=== PATIENT | male | born 1960 | race Caucasian/White ===

== ENCOUNTER → 2022-12-15 09:51 | Outpatient (CLI) | payer BC, SELFPAY ==
--- NOTE | ~2022-12-15 | XR_ITS ---
XR chest 2V DATE: 12/15/2022 10:41 INDICATION: Cough TECHNIQUE: Upright PA and lateral views COMPARISON: None FINDINGS: Heart size is within normal limits. Left anterior chest monitor device. There is aortic calcification and mild unfolding. No hilar or mediastinal enlargement is evident. Mild infiltrate or atelectasis, left lower lobe. The lungs are otherwise clear. Levoscoliosis and diffuse idiopathic skeletal hyperostosis of the thoracic spine. IMPRESSION: Mild infiltrate or atelectasis, left lower lobe Reviewed, dictated and finalized at location A.
== END ==
PROVIDERS: PCP Nurse Practitioner Family; Visit Provider Nurse Practitioner Family
DX: R05.9 Cough, unspecified (principal); R91.8 Other nonspecific abnormal finding of lung field
CPT/HCPCS: 71046

== ENCOUNTER → 2023-04-12 14:36 | Outpatient (CLI) | payer MEDICARE, SELFPAY ==
--- NOTE | ~2023-04-12 | XR_ITS ---
XR chest 2V DATE: 04/12/2023 15:01 INDICATION: Pneumonia TECHNIQUE: 2 views COMPARISON: 12/15/2022 2 view chest FINDINGS: Heart size appears within normal range. There is a left anterior chest wall electronic card iac monitor device. There is mild aortic unfolding. No hilar or mediastinal enlargement. Mild infiltrate and/or atelectasis at the lung bases, left greater than right. The lungs otherwise ap pear clear. No pleural effusion or pulmonary vascular congestion or pneumothorax is detected. Diffuse idiopathic skeletal hyperostosis of the thoracic spine. Mild thoracic levoscoliosis. IMPRESSION: Mild infiltrate and/or atelectasis at the lung bases, left greater than right Reviewed, dictated and finalized at location B. LUTION AGENT
== END ==
PROVIDERS: PCP Family Medicine; Visit Provider Family Medicine
DX: J18.9 Pneumonia, unspecified organism (principal); R91.8 Other nonspecific abnormal finding of lung field
CPT/HCPCS: 71046

== ENCOUNTER 2024-04-01 19:09 | Emergency (ER) | payer MEDICARE, SELFPAY ==
[2024-04-01 19:18] VITALS: BP 148/62; PULSE 93; RESP 15; TEMP 36.5; O2SAT 95
--- NOTE | 2024-04-01 19:37 | PC.NURSE ---
Pt is A&Ox4 and refusing blood draw and other laboratory testing at this time. EDP aware.
[2024-04-01] MEDS: ACETAMINOPHEN 500 MG TABLET 1000 MG PO (20:00)
--- NOTE | 2024-04-01 20:00 | ED_ITS ---
HPI - General Adult General Chief complaint: Psychiatric Symptoms Stated complaint: psych issues Time Seen by Provider: 04/01/24 19:24 History of Present Illness HPI narrative: Patient is a 64-year-old male who presents to the emergency department this evening from his assisted living facility for psychiatric evaluation. Allegedly, patient told staff there that he wanted to harm herself. No active. Upon arrival to the emergency department, patient states that he never said that. He is adamantly denying any suicidal homicidal ideations. Denies any previous history of any suicide attempts. Patient has a history of previous stroke and secondary to this has left-sided deficits. Patient does have a guardian, his daughter who was contacted upon patient's arrival to the emergency department as patient is refusing care. Daughter states the patient will say random things at times that he does not mean. She is not concerned at all about him being suicidal or homicidal. She states that the assisted living facility gave her an ultimatum, either she comes and states with him for 24 hours or they sent him to the emergency department. Daughter states that she could not come and sit with the patient as she has kids that she needs to take care of. Related Data Allergies Allergy/AdvReac Type Severity Reaction Status Date / Time NA Allergy Uncoded 06/23/08 13:01 Review of Systems Review of Systems: All systems are reviewed and are negative unless stated otherwise in the HPI. [facility] Social History Social History Substance use type: does not use Exam Narrative: General: Alert, awake, afebrile, in no acute distress. HEENT: PERRL, no rhinorrhea, no post nasal drip, oropharynx clear. Neck: Trachea midline, no JVD, no lymphadenopathy. Cardiovascular: Regular rate and rhythm, no murmurs, rubs or gallops, no peripheral edema. Respiratory: Clear to auscultation bilaterally, no tachypnea, no wheezing, no rhonchi, no rubs, no respiratory distress. Abdomen: Soft, nontender, nondistended, no rebound, no guarding, no peritoneal signs. Musculoskeletal: No joint swelling or deformity, normal muscle tone. Skin: No rashes or petechia, no signs of infection. Psychiatric: Alert and oriented, normal behavior and judgment for situation. Neurological: Alert and oriented to person, place, and time. Follows all commands. Left-sided residual deficits secondary to history of stroke speech is clear and fluent. Course Vital Signs Vital signs: Vital Signs Temperature 97.7 F 04/01/24 19:18 Pulse Rate 93 04/01/24 19:18 Respiratory Rate 15 04/01/24 19:18 Blood Pressure 148/62 H 04/01/24 19:18 Pulse Oximetry 95 04/01/24 19:18 Oxygen Delivery Room Air 04/01/24 19:18 Temperature 97.7 F 04/01/24 19:18 Pulse Rate 93 04/01/24 19:18 Respiratory Rate 15 04/01/24 19:18 Blood Pressure 148/62 H 04/01/24 19:18 Pulse Oximetry 95 04/01/24 19:18 Oxygen Delivery Room Air 04/01/24 19:18 Medical Decision Making MDM Narrative Medical decision making narrative: The patient was evaluated by myself in the emergency department. History is obtained from patient who is an independent historian and physical exam was performed. External medical records were reviewed at this time. Patient was administered a g of Tylenol for chronic pain per his request. Patient was refusing blood work. We did contact guardian and inform her of this and she was not concerned about patient being suicidal or homicidal. Differential diagnosis considerations include acute stress reaction, anxiety, depression. Comorbidities impacting this visit include none. I have evaluated and discussed social determinants of health with the patient that could potentially impact subsequent diagnosis and treatment plans. On repeat assessment of the patient, reevaluation revealed that the patient is doing well and is in no acute distress. Patient symptoms have remained stable since he arrived to our emergency department. Repeat vital signs were all reviewed and noted to be stable. Differential diagnosis and treatment plan were discussed with the patient at bedside. Patient agrees with discussion and after shared medical decision making agrees with discharge. All questions were answered to the patient's satisfaction. Patient will follow up with his PCP in 3-5 days. Patient was provided with strict return precautions and instructed to return to the emergency department if any new or worsening symptoms develop. The patient was discharged in stable condition. Vital Signs Vital Signs: Vital Signs Temperature 97.7 F 04/01/24 19:18 Pulse Rate 93 04/01/24 19:18 Respiratory Rate 15 04/01/24 19:18 Blood Pressure 148/62 H 04/01/24 19:18 Pulse Oximetry 95 04/01/24 19:18 Oxygen Delivery Room Air 04/01/24 19:18 Temperature 97.7 F 04/01/24 19:18 Pulse Rate 93 04/01/24 19:18 Respiratory Rate 15 04/01/24 19:18 Blood Pressure 148/62 H 04/01/24 19:18 Pulse Oximetry 95 04/01/24 19:18 Oxygen Delivery Room Air 04/01/24 19:18 Discharge Plan Discharge Clinical Impression: Encounter for medical assessment Patient Disposition: SNF Condition: Improved Instructions: Normal Exam (ED) Additional Instructions: Please follow-up with your family doctor within the next 3-5 days. Return to the ED if any new or worsening symptoms develop. Patient Language: Portuguese Follow-up/Referrals: Devante,Amber Sylvester MD [Primary Care Provider] - 3 Days Time of Disposition: 20:01
[2024-04-01 21:04] VITALS: PULSE 85; RESP 15; O2SAT 96
--- OUTSIDE RECORDS SUMMARY | 2024-04-03 03:38 | XMS_ITS | Encounter Summary ---
Author Organization [facility] Address [address] [place] [address] Care Team Providers Care Commercial Review Appraiser Name Role Phone Gutierrez Richardson MD Primary Care Provider Reason for Visit * Auth/Cert Specialty Diagnoses / Procedures Referred By Behzad mcdonald Referred To Contact Diagnoses CEREBRAL INFARCTION, UNSPECIFIED Referral ID Status Reason Start Date Expiration Date Visits Re quested Visits Authorized [id number] 1 1 Encounter Details Date Type Department Care Team (Latest Contact Info) Description 12/22/2021 1:03 PM CDT Hospital Encounter [address] [address] Rea Donnelly MD [address] [place] [address] [place], [place] [id number] Select Direct Social History Tobacco Use Types [...] and heating? Not hard at all 04/30/2022 [facility] - Occupational Stress [...] place to sleep or slept in a correction (including now)? No 04/30/2022 Sex and Gender Information Value Date Recorded Sex Assigned at Male 09/10/2022 10:38 AM CDT Gender Identity Male 09/10/2022 10:38 AM CDT Sexual Orientation Straight 09/10/2022 10 :38 AM CDT documented as of this encounter Functional Status Functional Status Response Date of Assess ment Is person deaf or have serious hearing difficult y? No 12/09/2021 Is person blind or have serious difficulty seein g? No 12/09/2021 Does person have serious dif ficulty walking/climbing stairs? No 12/09/2021 Does person have difficulty dressing/bathing? No 12/09/2021 Does person have difficulty doing errands alone? No 12/09/2021 Cognitive Status Response Date of Assessm ent Does person have difficulty concentrating/remembering/making decisions? No 12/09/2021 documented as of this encounter Plan of Treatment Not on file documented as of this encounter Visit Diagnoses Not on filedocumented in this encounter Care Teams Commercial Review Appraiser Relationship Specialty Start Date End Date Gutierrez Richardson MD [address] [facility] [address] [place] [address] PCP - General 12/12/21 01/02/22 documented as of this encounter
--- OUTSIDE RECORDS SUMMARY | 2024-04-03 03:38 | XMS_ITS | Clinical Summary ---
Author Organization [facility] Address [address] [place] [address] Care Team Providers Care Pipe Line Walker Name Role Phone Gutierrez Richardson MD Unavailable [phone] Gutierrez Richardson MD Primary Care Provider [phone] Source Comments [facility],non-owned Affiliates and Associated Physician Practices is amultiple site organization consisting of ambulatory clinics and hospital sitesin [place], [place], [place] and [place]. This disclosure is being madepursuant to the Care Everywhere program and may not contain all information available regarding this patient. Last updated 17.[facility] [employer] Allergies No known active allergies Medications * Be aware that medications may not be up to date on this document. Alwaysverify current medications with the patient. Medication Sig Dispensed Refills Start Date End Date Status albuterol HFA (PROVENTIL;VENTOL IN;PROAIR) 108 (90 BASE) MCG/ACT inhaler Inhale 2 puffs by mouth every 6 hours as needed for Cough 1 Inhaler 03/20/2017 Active atorvastatin (Lipitor) 80 MG tablet Take 1 (one) tablet by mouth at bedtime 45 tablet 1 12/21/2021 Active amLODIPine (Norvasc) 5 MG tablet Take 1 (one) tablet by mouth once daily 30 tablet 1 12/22/2021 Active Additional Information Patient not taking.Reported on 04/30/2022 gabapentin (Neurontin) 400 MG capsule Take 1 (one) capsule by mouth at bedtime Active lidocaine (Lidoderm) 5 % patch lidocaine 5 % topical patch APPLY 1 PATCH BY TOPICAL ROUTE ONCE DAILY (MAY WEAR UP TO 12HOURS.) Active lisinopril (Prinivil; Zestril) 20 MG tablet Take 1 (one) tablet by mouth once daily Active melatonin 3 MG tablet Take 5 mg by mouth at bedtime 01/13/2022 Active modafinil (Provigil) 200 MG tablet Take 1 (one) tablet by mouth every morning Active propranolol (Inderal) 10 MG tablet propranolol 10 mg tablet Take 1 tablet 3 times a day by oral route for 90 days. 01/13/2022 Active benzonatate (Tessalon) 100 MG capsule Take 1 (one) capsule by mouth 3 times daily as needed for Cough Active calcium carbonate (Tums) 500 MG chew tablet Take 1 (one) tablet by mouth daily with food Active traZODone (Desyrel) 50 MG tablet Take 1 (one) tablet by mouth at bedtime Active fluticasone propionate (Flonase) 50 MCG/ACT nasal spray [place] 2 (two) sprays into each nostril as needed Active aspirin (Aspirin) 81 MG chew tablet Take 1 (one) tablet by mouth once daily 45 tablet 1 05/05/2022 Active hydrOXYzine HCl (Atarax) 25 MG tablet Take 1 (one) tablet by mouth every 6 hours as needed for Itching 05/03/2022 Active heparin 5000 UNIT/ML injection Inject 1 mL subcutaneously every 8 hours 05/03/2022 Active levETIRAcetam (Keppra) 500 MG tablet Take 1 (one) tablet by mouth every 12 hours 05/03/2022 Active DULoxetine (Cymbalta) 30 MG capsule Take 3 (three) capsules by mouth once daily 05/04/2022 Active famotidine (Pepcid) 20 MG tablet Take 1 (one) tablet by mouth 2 times daily 05/03/2022 Active polyethylene glycol 3350 (Miralax) 17 g packet Take 17 (seventeen) g by mouth once daily as needed 05/03/2022 Active Active Problems Problem Noted Date Diagnosed Date History of cranioplasty 04/30/2022 Cerebrovascular accident 12/23/2021 Dysphagia 12/23/2021 Hypertension 12/23/2021 Debility 12/22/2021 Cerebral edema 12/11/2021 Brain herniation 12/11/2021 Acute respiratory failure 12/11/2021 Nihss score 11 12/11/2021 Leukocytosis 12/11/2021 Cerebrovascular accident (CVA) 12/09/2021 Primary hypertension 12/09/2021 Alcohol use 12/09/2021 Tobacco use disorder 12/09/2021 Other hyperlipidemia 12/09/2021 Other dysphagia 12/09/2021 Acute ischemic right MCA stroke 12/09/2021 Social History Tobacco Use Types Packs/Day Years Used Date Smoking Tobacco: Former Cigarettes Q uit: 12/2020 Smokeless Tobacco: Never Tobacco Cessation:Counseling Given: Not Answered Alcohol Use Standard Drinks/Week Comments Not Currently 0 (1 standard drink = 0.6 oz [...] and heating? Not hard at all 04/30/2022 [facility] - Occupational Stress [...] place to sleep or slept in a residential (including now)? No 04/30/2022 Sex and Gender Information Value Date Recorded Sex Assigned at Male 09/10/2022 10:38 AM CDT Gender Identity Male 09/10/2022 10:38 AM CDT Sexual Orientation Straight 09/10/2022 10 :38 AM CDT Last Filed Vital Signs Vital Sign Reading Time Taken Comments Blood Pressure 118/70 05/03/2022 3:05 PM [facility] Pulse 92 05/03/2022 3:05 PM [facility] Temperature 36.9 ??C (98.4 ??F) 05/03/2022 3:05 PM CS T Respiratory Rate 16 05/03/2022 3:05 PM [facility] Oxygen Saturation 89% 05/03/2022 3:05 PM [facility] Inhaled Oxygen Concentration 30% 12/21/2021 8 :25 AM CDT Weight 91.9 kg (202 lb 8 oz) 04/30/2022 6:14 AM [facility] Height 175.3 cm (5' 9 ) 04/30/2022 6:14 AM [facility] Body Mass Index 29.9 04/30/2022 6:14 AM [facility] Plan of Treatment Health Maintenance Due Date Last Done Comments COLOGUARD (AGES 45-75) - COLON CA SCREENING 1960 COLON MONITORING 1958 COLONOSCOPY - COLON CA SCREENING 1958 CT COLONOGRAPHY - COLON CA SCREENING 1960 Colorectal Cancer Screening 1958 FIT - COLON CA SCREENING 1958 FLEX SIG - COLON CA SCREENING 1958 HIV SCREENING 1973 HEPATITIS C SCREENING 03/26/1976 DTAP/TDAP/TD VACCINES (1 - Tdap) 1977 PNEUMOCOCCAL VACCINE 50+ (1 of 1 - PCV) 2008 ZOSTER VACCINE (1 of 2) 2008 Respiratory Syncytial Virus (RSV) Vaccine Pt: or over 60 yrs (1 - Risk 60-74 years 1-dose series) 2018 AAA SCREENING 2023 COVID-19 VACCINE (2023- season) 2023 INFLUENZA VACCINE (#1) 2023 DEPRESSION SCREENING 03/11/2024 SCREENING FOR DIABETES 05/03/2025 3, 05/02/2022, 05/01/2022, Additional history exists HEPATITIS B VACCINE Aged Out No longe r eligible based on patient's age to complete this topic HIB VACCINE Aged Out No longer eligi ble based on patient's age to complete this topic HPV VACCINE Aged Out No longer eligi ble based on patient's age to complete this topic MENINGOCOCCAL (Group B) VACCINE Aged Out No longer eligible based on patient's age to complete this topic MENINGOCOCCAL VACCINE Aged Out No andrei jennifer eligible based on patient's age to complete this topic Medical Devices Implanted Type Area Commutator Inspector Device Identifier Shelf Expiration Date Model / Serial / Lot Precision Multiparameter Catheter Implanted:Qty: 1 on 12/10/2021 by Ken Fu MD at [facility] Catheters Left: Cranial 06/08/2024 [id number] / [id number] / Description:[employer] ; CRANIAL BOLT cost per Cadence Graft Tissue Drgn + Bvn Clgn Mtrx 5x4in Implanted:Qty: 1 on 12/10/2021 by Ken Fu MD at [facility] Other (Type not listed) Right: Cranial [employer] 08/08/2024 [id number] / / [id number] Sys Crd Mntr Rvl Linq Ii - [id number] Implanted:Qty: 1 on 12/14/2021 by Shae Choi MD at [facility] [employer] [place] 09/25/2022 [id number] / [id number] / [id number] Screw 1.5mm 4mm Slf Drl Ax Stab Unv Implanted:Qty: 15 on 04/30/2022 by Ken Fu MD at [facility] Right: Cranial [employer] Craniomaxillofacial [id number] / / Plate 2x2 Hl Lopro Crnmxf .4mm Sm Bx Unv Implanted:Qty: 3 on 04/30/2022 by Ken Fu MD at [facility] Right: Cranial Mimi Craniomaxillofacial [id number] / / Plate 6 Hl Lopro Bar Crnmxf .4mm 2y Unv Implanted:Qty: 1 on 04/30/2022 by Ken Fu MD at [facility] Right: Cranial Mimi Craniomaxillofacial [id number] / / Explanted Type Area Commutator Inspector Device Identifier Shelf Expiration Date Model / Serial / Lot Set Xtrn Drn 35cm 1.9mm 3-15cm Cath Inr Explanted:Qty: 1 on 04/30/2022 at [facility] [employer] [id number] / / Procedures Procedure Name Priority Date/Time Associated Diagnosis Comments BASIC METABOLIC PANEL (CALCIUM TOTAL) Routine 05/03/2022 3:33 AM [facility] History of cranioplasty from Last 3 Months or Most Recently Relevant to Health Maintenance Results * (ABNORMAL) BASIC METABOLIC PANEL (CALCIUM TOTAL) (05/03/2022 3:33 AM [facility]) BUN 14 7 - 26 mg/dL 05/03/2022 4:42 AM [facility] Creatinine 0.59(L) 0.71 - 1.16 mg/dL 05/03/2022 4:42 AM [facility] Sodium 140 136 - 145 mmol/L 05/03/2022 4:42 AM [facility] Potassium 4.3 3.5 - 4.5 mmol/L 05/03/2022 4:42 AM [facility] Comment:Confirmed by repeat analysis. Chloride 105 98 - 107 mmol/L 05/03/2022 4:42 AM [facility] Comment:Confirmed by repeat analysis. CO2 24 22 - 29 mmol/L 05/03/2022 4:42 AM [facility] Glucose 143(H) 70 - 115 mg/dL 05/03/2022 4:42 AM [facility] Calcium 9.0 8.4 - 10.2 mg/dL 05/03/2022 4:42 AM [facility] Anion Gap 15 8 - 18 05/03/2022 4:42 AM [facility] BUN/Creatinine Ratio 24(H) 7 - 23 05/03/2022 4:42 AM [facility] Osmolality Calculated 293 270 - 300 mOsm/kg 05/03/2022 4:42 AM [facility] eGFR by CKD-EPI >90 >=90 mL/min/1.7 3 m2 05/03/2022 4:42 AM [facility] Blood BLOOD SPECIMEN / Unknown Venipuncture / Unknown 05/03/2022 3:33 AM [facility] 05/03/2022 3:45 AM [facility] Ken Fu MD LAB - CHEMISTRY ZO [place] [facility] Organization Address City/State/ZIP Co de Phone Number [facility] [address] [place] [address], [facility] [phone] from Last 3 Months or Most Recently Relevant to Health Maintenance Insurance Payer Benefit Plan / Group Subscriber ID Effective Dates Phone Address Type ANTHEM BLUE CROSS TRADITIONAL [id number] 07/05/2020-Presen t [phone] [address] [place] [address] PPO ANTHEM BLUE CROSS TRADITIONAL 07/05/2020-Presen t [phone] [address] [place] [address] PPO ANTHEM BLUE CROSS TRADITIONAL 07/05/2020-Presen t [phone] [address] [place] [address] PPO ANTHEM BLUE CROSS TRADITIONAL 07/05/2020-Presen t [phone] [address] [place] [address] PPO ANTHEM BLUE CROSS TRADITIONAL [id number] 07/05/2020-Presen t [phone] [address] [place] [address] PPO ANTHEM BLUE CROSS TRADITIONAL 07/05/2020-Presen t [phone] [address] [place] [address] PPO ANTHEM BLUE CROSS TRADITIONAL 07/05/2020-Presen t [phone] [address] [place] [address] PPO ANTHEM BLUE CROSS TRADITIONAL 07/05/2020-Presen t [phone] [address] [place] [address] PPO ANTHEM BLUE CROSS TRADITIONAL 07/05/2020-Presen t [phone] [address] [place] [address] PPO ANTHEM BLUE CROSS TRADITIONAL 07/05/2020-Presen t [phone] [address] [place] [address] PPO ANTHEM BLUE CROSS TRADITIONAL 07/05/2020-Presen t [phone] [address] [place] [address] PPO ANTHEM BLUE CROSS TRADITIONAL 07/05/2020-Presen t [phone] [address] [place] [address] PPO ANTHEM BLUE CROSS TRADITIONAL 07/05/2020-Presen t [phone] [address] [place] [address] PPO ANTHEM BLUE CROSS TRADITIONAL 07/05/2020-Presen t [phone] [address] [place] [address] PPO ANTHEM BLUE CROSS TRADITIONAL 07/05/2020-Presen t [phone] [address] [place] [address] PPO ANTHEM BLUE CROSS TRADITIONAL 07/05/2020-Presen t [phone] [address] [place] [address] PPO ANTHEM BLUE CROSS TRADITIONAL 07/05/2020-Presen t [phone] [address] [place] [address] PPO ANTHEM BLUE CROSS TRADITIONAL 07/05/2020-Presen t [phone] [address] [place] [address] PPO ANTHEM BLUE CROSS TRADITIONAL 07/05/2020-Presen t [phone] [address] [place] [address] PPO ANTHEM BLUE CROSS TRADITIONAL 07/05/2020-Presen t [phone] [address] [place] [address] PPO ANTHEM BLUE CROSS TRADITIONAL 07/05/2020-Presen t [phone] [address] [place] [address] PPO ANTHEM BLUE CROSS TRADITIONAL 07/05/2020-Presen t [phone] [address] [place] [address] PPO ANTHEM BLUE CROSS TRADITIONAL 07/05/2020-Presen t [phone] [address] [place] [address] PPO ANTHEM BLUE CROSS TRADITIONAL 07/05/2020-Presen t [phone] [address] [place] [address] PPO ANTHEM BLUE CROSS TRADITIONAL 07/05/2020-Presen t [phone] [address] [place] [address] PPO ANTHEM BLUE CROSS TRADITIONAL 07/05/2020-Presen t [phone] [address] [place] [address] PPO ANTHEM BLUE CROSS TRADITIONAL 07/05/2020-Presen t [phone] [address] [place] [address] PPO ANTHEM BLUE CROSS TRADITIONAL 07/05/2020-Presen t [phone] [address] [place] [address] PPO ANTHEM BLUE CROSS TRADITIONAL 07/05/2020-Presen t [phone] [address] [place] [address] PPO ANTHEM BLUE CROSS TRADITIONAL 07/05/2020-Presen t [phone] [address] [place] [address] PPO ANTHEM BLUE CROSS TRADITIONAL 07/05/2020-Presen t [phone] [address] [place] [address] PPO ANTHEM BLUE CROSS TRADITIONAL 07/05/2020-Presen t [phone] [address] [place] [address] PPO ANTHEM BLUE CROSS TRADITIONAL [id number] 07/05/2020-Presen t [phone] [address] [place] [address] PPO ANTHEM BLUE CROSS TRADITIONAL [id number] 07/05/2020-Presen t [phone] [address] [place] [address] PPO ANTHEM BLUE CROSS TRADITIONAL [id number] 07/05/2020-Presen t [phone] [address] [place] [address] PPO ANTHEM BLUE CROSS TRADITIONAL [id number] 07/05/2020-Presen t [phone] [address] [place] [address] PPO ANTHEM BLUE CROSS TRADITIONAL [id number] 07/05/2020-Presen t [phone] [address] [place] [address] PPO ANTHEM BLUE CROSS TRADITIONAL [id number] 07/05/2020-Presen t [phone] [address] [place] [address] PPO ANTHEM BLUE CROSS TRADITIONAL [id number] 07/05/2020-Presen t [phone] [address] [place] [address] PPO ANTHEM BLUE CROSS TRADITIONAL [id number] 07/05/2020-Presen t [phone] [address] [place] [address] PPO ANTHEM BLUE CROSS TRADITIONAL [id number] 07/05/2020-Presen t [address] [place] [address] PPO ANTHEM BLUE CROSS TRADITIONAL [id number] 07/05/2020-Presen t [address] [place] [address] PPO ANTHEM BLUE CROSS TRADITIONAL [id number] 07/05/2020-Presen t [address] [place] [address] PPO ANTHEM BLUE CROSS TRADITIONAL [id number] 07/05/2020-Presen t [address] [place] [address] PPO ANTHEM ANTHEM BLUE ACCESS [id number] 03/11/2019-Present [address] [place] [address] PPO ANTHEM BLUE CROSS TRADITIONAL 07/05/2020-Presen t [address] [place] [address] PPO ANTHEM BLUE CROSS TRADITIONAL 07/05/2020-Presen t [address] [place] [address] PPO ANTHEM BLUE CROSS TRADITIONAL 07/05/2020-Presen t [address] [place] [address] PPO ANTHEM BLUE CROSS TRADITIONAL 07/05/2020-Presen t [address] [place] [address] PPO ANTHEM BLUE CROSS TRADITIONAL 07/05/2020-Presen t [address] [place] [address] PPO ANTHEM BLUE CROSS TRADITIONAL 07/05/2020-Presen t [address] [place] [address] PPO ANTHEM BLUE CROSS TRADITIONAL 07/05/2020-Presen t [address] [place] [address] PPO ANTHEM BLUE CROSS TRADITIONAL 07/05/2020-Presen t [address] [place] [address] PPO ANTHEM BLUE CROSS TRADITIONAL 07/05/2020-Presen t [address] [place] [address] PPO ROME SHEPHERD TRADITIONAL 07/05/2020-Presen t [address] [place] [address] PPO ROME RUANO CROSS TRADITIONAL 07/05/2020-Presen t [address] [place] [address] PPO Advance Directives * Full Code (Latest Code Status on File) Date Activated Date Inactivated Comments 04/30/2022 10:03 AM 05/03/2022 4:26 PM * Full Code Date Activated Date Inactivated Comments 04/30/2022 6:47 AM 04/30/2022 10:03 AM * DNR WITH COMFORT MEASURES Date Activated Date Inactivated Comments 12/22/2021 5:55 PM 01/13/2022 1:17 PM Question Answer Comments : DO NOT discontinue a ny active orders without asking attending physician. Comfort Measures: yes * Full Code Date Activated Date Inactivated Comments 12/22/2021 4:30 PM 12/22/2021 5:54 PM * LIMITED RESUSCITATION-PRIOR AND AFTER ARREST Date Activated Date Inactivated Comments 12/10/2021 10:52 AM 12/22/2021 4:14 PM Question Answer Comments Limited Resuscitation: No Chest Compress ionNo Cardioversion, No Defibrilation, No External or Internal Pacemaker Care Teams Pipe Line Walker Relationship Specialty Start Date End Date Gutierrez Richardson MD [address] [place] [address] PCP - General 06/28/22 Gutierrez Richardson MD [address] [place] [address] 01/03/22
--- OUTSIDE RECORDS SUMMARY | 2024-04-03 03:38 | XMS_ITS | Encounter Summary ---
Author Organization [facility] Address [address] [place] [address] Care Team Providers Care Gas Station Manager Name Role Phone Gutierrez Richardson MD Unavailable [phone] Rosana Castro PA-C Primary Care Provider [phone] Gutierrez Richardson MD Primary Care Provider [phone] Reason for Visit * Reason Onset Date Comments Follow-up 04/27/2022 Encounter Details Date Type Department Care Team (Late Contact Info) Description 04/27/2022 Telephone [facility] [address] [facility] [place] [address] Rani Chapman Follow-up Social History Tobacco Use Types Packs/Day Years Used Date Smoking Tobacco: Former Cigarettes Q uit: 12/2020 Smokeless Tobacco: Never Alcohol Use Standard Drinks/Week Comments Not Currently [...] and heating? Not hard at all 04/30/2022 [facility] of Occupat ional Health - Occupational Stress [...] money to buy more. Never true 04/30/19 Within the past 12 months, t he [...] place to sleep or slept in a longterm (including now)? No 04/30/2022 Sex and Gender [...] No 12/09/2021 documented as of this encounter Miscellaneous Notes * Telephone Encounter - Rani Chapman - 04/27/2022 10:20 AM CST Contact patient. Reviewed surgery instructions for Saturday. Arrival time 0530am to [address] Helene Parker. NPO after midnight. H OR BROOM CUTTER documented in this encounter Plan of Treatment Not on file documented as of this encounter Visit Diagnoses Not on filedocumented in this encounter Care Teams Gas Station Manager Relationship Specialty Start Date End Date Rosana Castro PA-C [address] [place] [address] [place] [id number] PCP - General 03/15/22 06/27/22 Gutierrez Richardson MD [address] [place] [address] PCP - General 06/28/22 Gutierrez Richardson MD [address] [place] [address] 01/03/22 documented as of this encounter
--- OUTSIDE RECORDS SUMMARY | 2024-04-03 03:38 | XMS_ITS | Patient Health Summary ---
Author Organization [facility] Address [address] [place] [address] Care Team Providers Care Director Treasurer Name Role Phone Gutierrez Richardson MD Unavailable [phone] Gutierrez Richardson MD Primary Care Provider [phone] Note from [facility],non-owned Affiliates and Associated Physician Practices is amultiple site organization consisting of ambulatory clinics and hospital sitesin [place], [place] and [place]. This disclosure is being madepursuant to the Care Everywhere program and may not contain all information available regarding this patient. Last updated 17.[facility] Allergies No known active allergies Medications * Be aware that medications may not be up to date on this document. Alwaysverify current medications with the patient. * albuterol HFA (PROVENTIL;VENTOLIN;PROAIR) 108 (90 BASE) MCG/ACT inhaler (Started 03/20/2017) Inhale 2 puffs by mouth every 6 hours as needed for Cough * atorvastatin (Lipitor) 80 MG tablet(Started 12/21/2021) Take 1 (one) tablet by mouth at bedtime 1 refill by 12/21/2022 * amLODIPine (Norvasc) 5 MG tablet(Started 12/22/2021) Take 1 (one) tablet by mouth once daily 1 refill by 12/22/2022 * gabapentin (Neurontin) 400 MG capsule Take 1 (one) capsule by mouth at bedtime * lidocaine (Lidoderm) 5 % patch lidocaine 5 % topical patch APPLY 1 PATCH BY TOPICAL ROUTE ONCE DAILY (MAY WEAR UP TO 12HOURS.) * lisinopril (Prinivil; Zestril) 20 MG tablet Take 1 (one) tablet by mouth once daily * melatonin 3 MG tablet(Started 01/13/2022) Take 5 mg by mouth at bedtime * modafinil (Provigil) 200 MG tablet Take 1 (one) tablet by mouth every morning * propranolol (Inderal) 10 MG tablet(Started 01/13/2022) propranolol 10 mg tablet Take 1 tablet 3 times a day by oral route for 90 days. * benzonatate (Tessalon) 100 MG capsule Take 1 (one) capsule by mouth 3 times daily as needed for Cough * calcium carbonate (Tums) 500 MG chew tablet Take 1 (one) tablet by mouth daily with food * traZODone (Desyrel) 50 MG tablet Take 1 (one) tablet by mouth at bedtime * fluticasone propionate (Flonase) 50 MCG/ACT nasal spray [place] 2 (two) sprays into each nostril as needed * aspirin (Aspirin) 81 MG chew tablet(Started 05/05/2022) Take 1 (one) tablet by mouth once daily 1 refill by 05/03/2023 * hydrOXYzine HCl (Atarax) 25 MG tablet(Started 05/03/2022) Take 1 (one) tablet by mouth every 6 hours as needed for Itching * heparin 5000 UNIT/ML injection(Started 05/03/2022) Inject 1 mL subcutaneously every 8 hours * levETIRAcetam (Keppra) 500 MG tablet(Started 05/03/2022) Take 1 (one) tablet by mouth every 12 hours * DULoxetine (Cymbalta) 30 MG capsule(Started 05/04/2022) Take 3 (three) capsules by mouth once daily * famotidine (Pepcid) 20 MG tablet(Started 05/03/2022) Take 1 (one) tablet by mouth 2 times daily * polyethylene glycol 3350 (Miralax) 17 g packet(Started 05/03/2022) Take 17 (seventeen) g by mouth once daily as needed Active Problems Problem Noted Date Diagnosed Date [...] and heating? Not hard at all 04/30/2022 [facility] [employer] [facility] [employer] [facility] - Occupational Stress [...] medical appointments or from getting medications? No 02/2 In the past 12 months, has l [...] place to sleep or slept in a long-term (including now)? No 04/30/2022 Sex and Gender Information Value Date Recorded Sex Assigned at Male 09/10/2022 10:38 AM CDT Gender Identity Male 09/10/2022 10:38 AM CDT Sexual Orientation Straight 09/10/2022 10 :38 AM CDT Last Filed Vital Signs Vital Sign Reading Time Taken Comments Blood Pressure 118/70 05/03/2022 3:05 PM FIELD OPERATOR Pulse 92 05/03/2022 3:05 PM FIELD OPERATOR Temperature 36.9 ??C (98.4 ??F) 05/03/2022 3:05 PM CS T Respiratory Rate 16 05/03/2022 3:05 PM FIELD OPERATOR Oxygen Saturation 89% 05/03/2022 3:05 PM FIELD OPERATOR Inhaled Oxygen Concentration 30% 12/21/2021 8 :25 AM CDT Weight 91.9 kg (202 lb 8 oz) 04/30/2022 6:14 AM FIELD OPERATOR Height 175.3 cm (5' 9 ) 04/30/2022 6:14 AM FIELD OPERATOR Body Mass Index 29.9 04/30/2022 6:14 AM FIELD OPERATOR Medical Devices Implanted Type Area Armament Repairer Device Identifier Shelf Expiration Date Model / Serial / Lot Precision Multiparameter Catheter Implanted:Qty: 1 on 12/10/2021 by Ken Fu MD at [facility] Catheters Left: Cranial 06/08/2024 [id number] / [id number] / Description:[employer] ; CRANIAL BOLT cost per Cadence Graft Tissue Drgn + Bvn Clgn Mtrx 5x4in Implanted:Qty: 1 on 12/10/2021 by Ken Fu MD at [facility] Other (Type not listed) Right: Cranial [employer] 08/08/2024 [id number] / / [id number] Sys Crd Mntr Rvl Linq Ii - [id number] Implanted:Qty: 1 on 12/14/2021 by Shae Brown MD at [facility] [employer] [place] 09/25/2022 [id number] / [id number] / [id number] Screw 1.5mm 4mm Slf Drl Ax Stab Unv Implanted:Qty: 15 on 04/30/2022 by Ken Fu MD at [facility] Right: Cranial Mimi Craniomaxillofacial [id number] / / Plate 2x2 Hl Lopro Crnmxf .4mm Sm Bx Unv Implanted:Qty: 3 on 04/30/2022 by Ken Fu MD at [facility] Right: Cranial Mimi Craniomaxillofacial [id number] / / Plate 6 Hl Lopro Bar Crnmxf .4mm 2y Unv Implanted:Qty: 1 on 04/30/2022 by Ken Fu MD at [facility] Right: Cranial Mimi Craniomaxillofacial [id number] / / Explanted Type Area Armament Repairer Device Identifier Shelf Expiration Date Model / Serial / Lot Set Xtrn Drn 35cm 1.9mm 3-15cm Cath Inr Explanted:Qty: 1 on 04/30/2022 at [facility] [employer] [id number] / / Procedures * PROC LOOP DEVICE CHECK (REMOTE)(Performed 09/03/2022) 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), Encounter for loop recorder check * CA INTG DVC E R 30 D;REC TRANS & TR(Performed 07/21/2022) 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), Encounter for loop recorder check * CA ILR DEVICE INTERROGAT REMOTE(Performed 07/21/2022) 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), Encounter for loop recorder check * CARDIAC PROCEDURE ORDER(Performed 07/11/2022) * PROC LOOP DEVICE CHECK (REMOTE)(Performed 06/14/2022) 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), Encounter for loop recorder check * CARDIAC PROCEDURE ORDER(Performed 06/06/2022) * CA INTG DVC E R 30 D;REC TRANS & TR(Performed 05/13/2022) 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), Encounter for loop recorder check * CA ILR DEVICE INTERROGAT REMOTE(Performed 05/13/2022) 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), Encounter for loop recorder check * CARDIAC EKG ORDER(Performed 05/04/2022) * CBC W AUTO DIFFERENTIAL(Performed 05/03/2022) Performed for History of cranioplasty * BASIC METABOLIC PANEL (CALCIUM TOTAL)(Performed 05/03/2022) Performed for History of cranioplasty * CBC W AUTO DIFFERENTIAL(Performed 05/02/2022) Performed for History of cranioplasty * BASIC METABOLIC PANEL (CALCIUM TOTAL)(Performed 05/02/2022) Performed for History of cranioplasty * CARDIAC PROCEDURE ORDER(Performed 05/02/2022) * CT HEAD WO CONTRAST(Performed 05/01/2022) Performed for History of cranioplasty * CBC W AUTO DIFFERENTIAL(Performed 05/01/2022) Performed for History of cranioplasty * BASIC METABOLIC PANEL (CALCIUM TOTAL)(Performed 05/01/2022) Performed for History of cranioplasty * PERIPHERAL IV NOTE(Performed 04/30/2022) * CRANIOPLASTY(Performed 04/30/2022) Performed for Acquired skull defect * ENDOTRACHEAL TUBE NOTE(Performed 04/30/2022) * TYPE + SCREEN PANEL(Performed 04/30/2022) 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) * CA INTG DVC E R 30 D;REC TRANS & TR(Performed 04/08/2022) 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), Encounter for loop recorder check * CA ILR DEVICE INTERROGAT REMOTE(Performed 04/08/2022) 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), Encounter for loop recorder check * PTT SLH(Performed 04/04/2022) Performed for Pre-op testing * PT-INR [facility]H(Performed 04/04/2022) Performed for Pre-op testing * CBC W AUTO DIFFERENTIAL(Performed 04/04/2022) Performed for Pre-op testing * BASIC METABOLIC PANEL (CALCIUM TOTAL)(Performed 04/04/2022) Performed for Pre-op testing * XR CHEST 2VW(Performed 04/04/2022) Performed for Pre-op testing * EKG 12-LEAD(Performed 04/04/2022) Performed for Pre-op testing * CT HEAD WO CONTRAST(Performed 04/04/2022) Performed for Acquired skull defect * CARDIAC PROCEDURE ORDER(Performed 03/28/2022) * CA INTG DVC E R 30 D;REC TRANS & TR(Performed 03/03/2022) 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), Encounter for loop recorder check * CA ILR DEVICE INTERROGAT REMOTE(Performed 03/03/2022) 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), Encounter for loop recorder check * CARDIAC PROCEDURE ORDER(Performed 02/21/2022) * CA INTG DVC E R 30 D;REC TRANS & TR(Performed 02/05/2022) 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), Encounter for loop recorder check * CA ILR DEVICE INTERROGAT REMOTE(Performed 02/05/2022) 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), Encounter for loop recorder check * CARDIAC PROCEDURE ORDER(Performed 01/17/2022) * COMPREHENSIVE METABOLIC PANEL(Performed 01/11/2022) * CBC W AUTO DIFFERENTIAL(Performed 01/11/2022) * XR FOOT LEFT 2VW(Performed 01/10/2022) * COMPREHENSIVE METABOLIC PANEL(Performed 01/08/2022) * CBC W AUTO DIFFERENTIAL(Performed 01/08/2022) * COMPREHENSIVE METABOLIC PANEL(Performed 01/04/2022) * CBC W AUTO DIFFERENTIAL(Performed 01/04/2022) * FL SWALLOWING FUNCTION STUDY(Performed 01/02/2022) * CBC W AUTO DIFFERENTIAL(Performed 01/01/2022) * COMPREHENSIVE METABOLIC PANEL(Performed 01/01/2022) * COMPREHENSIVE METABOLIC PANEL(Performed 12/28/2021) * CBC W AUTO DIFFERENTIAL(Performed 12/28/2021) * CARDIAC EKG ORDER(Performed 12/27/2021) * CBC W AUTO DIFFERENTIAL(Performed 12/26/2021) * BASIC METABOLIC PANEL (CALCIUM TOTAL)(Performed 12/26/2021) * COMPREHENSIVE METABOLIC PANEL(Performed 12/25/2021) * CBC W AUTO DIFFERENTIAL(Performed 12/25/2021) * COMPREHENSIVE METABOLIC PANEL(Performed 12/23/2021) * CBC W AUTO DIFFERENTIAL(Performed 12/23/2021) * PHOSPHORUS BLOOD(Performed 12/22/2021) * MAGNESIUM BLOOD(Performed 12/22/2021) * CBC W/O DIFFERENTIAL(Performed 12/22/2021) * BASIC METABOLIC PANEL (CALCIUM TOTAL)(Performed 12/22/2021) * CT HEAD WO CONTRAST(Performed 12/21/2021) 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) * GLUCOSE - POINT OF CARE(Performed 12/21/2021) * PHOSPHORUS BLOOD(Performed 12/21/2021) * MAGNESIUM BLOOD(Performed 12/21/2021) * CBC W/O DIFFERENTIAL(Performed 12/21/2021) * BASIC METABOLIC PANEL (CALCIUM TOTAL)(Performed 12/21/2021) * GLUCOSE - POINT OF CARE(Performed 12/21/2021) * GLUCOSE - POINT OF CARE(Performed 12/20/2021) * GLUCOSE - POINT OF CARE(Performed 12/20/2021) * FL SWALLOWING FUNCTION STUDY(Performed 12/20/2021) Performed for Cerebrovascular accident (CVA), unspecified mechanism (HCC) * GLUCOSE - POINT OF CARE(Performed 12/20/2021) * GLUCOSE - POINT OF CARE(Performed 12/20/2021) * XR CHEST 1VW PORTABLE(Performed 12/20/2021) Performed for Acute respiratory failure, unspecified whether with hypoxia or hypercapnia (HCC) * GLUCOSE - POINT OF CARE(Performed 12/20/2021) * GLUCOSE - POINT OF CARE(Performed 12/20/2021) * BLOOD GASES ART + COOX PANEL(Performed 12/20/2021) * PHOSPHORUS BLOOD(Performed 12/20/2021) * MAGNESIUM BLOOD(Performed 12/20/2021) * CBC W/O DIFFERENTIAL(Performed 12/20/2021) * BASIC METABOLIC PANEL (CALCIUM TOTAL)(Performed 12/20/2021) * GLUCOSE - POINT OF CARE(Performed 12/19/2021) * XR ABDOMEN KUB PORTABLE(Performed 12/19/2021) Performed for Cerebrovascular accident (CVA), unspecified mechanism (HCC) * GLUCOSE - POINT OF CARE(Performed 12/19/2021) * BLOOD GASES ART + COOX PANEL(Performed 12/19/2021) * GLUCOSE - POINT OF CARE(Performed 12/19/2021) * BLOOD GASES ART + COOX PANEL(Performed 12/18/2021) * PHOSPHORUS BLOOD(Performed 12/18/2021) * MAGNESIUM BLOOD(Performed 12/18/2021) * CBC W/O DIFFERENTIAL(Performed 12/18/2021) * BASIC METABOLIC PANEL (CALCIUM TOTAL)(Performed 12/18/2021) * BLOOD GASES ART + COOX PANEL(Performed 12/18/2021) * PHOSPHORUS BLOOD(Performed 12/18/2021) * MAGNESIUM BLOOD(Performed 12/18/2021) * CBC W/O DIFFERENTIAL(Performed 12/18/2021) * BASIC METABOLIC PANEL (CALCIUM TOTAL)(Performed 12/18/2021) * BLOOD GASES ART + COOX PANEL(Performed 12/16/2021) * PHOSPHORUS BLOOD(Performed 12/16/2021) * MAGNESIUM BLOOD(Performed 12/16/2021) * CBC W/O DIFFERENTIAL(Performed 12/16/2021) * BASIC METABOLIC PANEL (CALCIUM TOTAL)(Performed 12/16/2021) * BLOOD GASES ART + COOX PANEL(Performed 12/16/2021) * BLOOD GASES ART + COOX PANEL(Performed 12/15/2021) * PHOSPHORUS BLOOD(Performed 12/15/2021) * MAGNESIUM BLOOD(Performed 12/15/2021) * CBC W/O DIFFERENTIAL(Performed 12/15/2021) * BASIC METABOLIC PANEL (CALCIUM TOTAL)(Performed 12/15/2021) * XR CHEST 1VW PORTABLE(Performed 12/15/2021) Performed for Acute respiratory failure, unspecified whether with hypoxia or hypercapnia (HCC) * BLOOD GASES ART + COOX PANEL(Performed 12/14/2021) * PHOSPHORUS BLOOD(Performed 12/14/2021) * MAGNESIUM BLOOD(Performed 12/14/2021) * CBC W/O DIFFERENTIAL(Performed 12/14/2021) * BASIC METABOLIC PANEL (CALCIUM TOTAL)(Performed 12/14/2021) * MRSA DNA PCR(Performed 12/14/2021) * CULTURE SPUTUM+GRAM STAIN(Performed 12/14/2021) * CCL LOOP RECORDER IMPLANT(Performed 12/14/2021) Performed for Cerebrovascular accident (CVA), unspecified mechanism (HCC) * CCL TRACK PRODUCTION ENGINEER DIAGNOSTIC MARINA(Performed 12/14/2021) Performed for Cerebrovascular accident (CVA), unspecified mechanism (HCC) * EP LOOP RECORDER IMPLANT(Performed 12/14/2021) Performed for Cerebrovascular accident (CVA), unspecified mechanism (HCC) * ECHO MARINA TRANSESOPHAGEAL(Performed 12/14/2021) Performed for Cerebrovascular accident (CVA), unspecified mechanism (HCC) * CARDIAC PROCEDURE ORDER(Performed 12/14/2021) * BLOOD GASES ART + COOX PANEL(Performed 12/13/2021) * PHOSPHORUS BLOOD(Performed 12/13/2021) * MAGNESIUM BLOOD(Performed 12/13/2021) * CBC W/O DIFFERENTIAL(Performed 12/13/2021) * BASIC METABOLIC PANEL (CALCIUM TOTAL)(Performed 12/13/2021) * BLOOD GASES ART + COOX PANEL(Performed 12/12/2021) * PHOSPHORUS BLOOD(Performed 12/12/2021) * MAGNESIUM BLOOD(Performed 12/12/2021) * CBC W/O DIFFERENTIAL(Performed 12/12/2021) * BASIC METABOLIC PANEL (CALCIUM TOTAL)(Performed 12/12/2021) * SODIUM BLOOD(Performed 12/12/2021) * TRIGLYCERIDES BLOOD(Performed 12/11/2021) * BLOOD GASES ART + COOX PANEL(Performed 12/11/2021) * PHOSPHORUS BLOOD(Performed 12/11/2021) * MAGNESIUM BLOOD(Performed 12/11/2021) * CBC W/O DIFFERENTIAL(Performed 12/11/2021) * BASIC METABOLIC PANEL (CALCIUM TOTAL)(Performed 12/11/2021) * SODIUM BLOOD(Performed 12/11/2021) * SODIUM BLOOD(Performed 12/11/2021) * ECHO COMPLETE W BUBBLE STUDY(Performed 12/11/2021) Performed for Cerebrovascular accident (CVA), unspecified mechanism (HCC) * GLUCOSE - POINT OF CARE(Performed 12/11/2021) * OSMOLALITY BLOOD(Performed 12/11/2021) * SODIUM BLOOD(Performed 12/11/2021) * CT HEAD WO CONTRAST(Performed 12/11/2021) Performed for Cerebrovascular accident (CVA), unspecified mechanism (HCC) * OSMOLALITY BLOOD(Performed 12/11/2021) * PHOSPHORUS BLOOD(Performed 12/11/2021) * MAGNESIUM BLOOD(Performed 12/11/2021) * CBC W/O DIFFERENTIAL(Performed 12/11/2021) * BASIC METABOLIC PANEL (CALCIUM TOTAL)(Performed 12/11/2021) * GLUCOSE - POINT OF CARE(Performed 12/10/2021) * OSMOLALITY BLOOD(Performed 12/10/2021) * SODIUM BLOOD(Performed 12/10/2021) * XR CHEST 1VW PORTABLE(Performed 12/10/2021) 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) * XR ABDOMEN KUB PORTABLE(Performed 12/10/2021) Performed for Other dysphagia * SODIUM BLOOD(Performed 12/10/2021) * OSMOLALITY BLOOD(Performed 12/10/2021) * BLOOD GASES ART + COOX PANEL(Performed 12/10/2021) * CRANIECTOMY/CRANIOTOMY(Performed 12/10/2021) Performed for Cerebrovascular accident (CVA), unspecified mechanism (HCC) * CT HEAD WO CONTRAST(Performed 12/10/2021) Performed for Cerebrovascular accident (CVA), unspecified mechanism (HCC) * TSH REFLEX FREE T4(Performed 12/09/2021) * PHOSPHORUS BLOOD(Performed 12/09/2021) * MAGNESIUM BLOOD(Performed 12/09/2021) * CBC W/O DIFFERENTIAL(Performed 12/09/2021) * BASIC METABOLIC PANEL (CALCIUM TOTAL)(Performed 12/09/2021) * MRI BRAIN WO CONTRAST(Performed 12/09/2021) Performed for Cerebrovascular accident (CVA), unspecified mechanism (HCC) * GLUCOSE - POINT OF CARE(Performed 12/09/2021) * BLOOD TYPE VERIFICATION(Performed 12/09/2021) * OT EVAL AND TREAT(Performed 12/09/2021) * EKG 12-LEAD(Performed 12/09/2021) Performed for Cerebrovascular accident (CVA), unspecified mechanism (HCC) * CT ANGIO BRAIN AND NECK(Performed 12/09/2021) Performed for Cerebrovascular accident (CVA), unspecified mechanism (HCC) * TYPE + SCREEN PANEL(Performed 12/09/2021) * LIPID PROFILE(Performed 12/09/2021) * HEMOGLOBIN A1C(Performed 12/09/2021) * TROPONIN I(Performed 12/09/2021) * PT-INR [facility]H(Performed 12/09/2021) * COMPREHENSIVE METABOLIC PANEL(Performed 12/09/2021) * CBC W AUTO DIFFERENTIAL(Performed 12/09/2021) * CREATININE - POCT INTERFACED(Performed 12/09/2021) * INR WHOLE BLOOD - POINT OF CARE (IP) STROKE(Performed 12/09/2021) * CT BRAIN STROKE(Performed 12/09/2021) Performed for Cerebrovascular accident (CVA), unspecified mechanism (HCC) Results * Loop Device Check (Remote) (09/03/2022 12:51 AM CDT) Narrative Lizabeth Ontiveros MD - 09/03/2022 12:51 AM CDT Lizabeth Ontiveros MD ? 09/03/2022 12:51 AM Skyler Llamas is undergoing usp monitoring with a Reveal implantable loop recorder. ??The remote transmission from 11-Jul-2022 to 15-Aug-2022 (36 days) showed the following results: Baseline Strip: Sinus rhythm Episodes Total: None Evaluation of Episodes: ??No significant arrhythmia or atrial fibrillation episodes were noted. Please contact me if you have any questions or concerns, thank you. Lizabeth Ontiveros MD PROCEDURE/VT NOR SURGICAL ORDERABLES * CA ILR DEVICE INTERROGAT REMOTE, CA INTG DVC E R 30 D;REC TRANS & TR (07/21/2022 3:43 PM CDT) Narrative Chuck Muñoz MD - 07/21/2022 3:43 PM CDT Chuck Muñoz MD ? 07/21/2022 ??3:44 PM Dear Skyler Llamas, I reviewed the remote interrogation of your loop recorder. ?? Your device's sensing is appropriate and stable. During this most recent monitored period (06-Jun-2022 to 11-Jul-2022), your atrial fibrillation/tachycardia burden was 0% and you had no arrhythmias. Device function is normal, no programming changes are required, and no medications will need to be changed. Please call our offices if you have any further questions. ?? Sincerely, Chuck Muñoz 07/21/2022 Chuck Muñoz MD PROCEDURE/MINOR SURG ICAL ORDERABLES * CARDIAC PROCEDURE ORDER (07/11/2022) Only the most recent of7 resultswithin the time period is included. Narrative 07/11/2022 Ordered by an unspecified provider. Scanned Document CARDIAC SERVICES ORD ERABLES * Loop Device Check (Remote) (06/14/2022 6:58 PM CDT) Narrative Lizabeth Ontiveros MD - 06/14/2022 6:58 PM CDT Lizabeth Ontiveros MD ? 06/14/2022 ??7:00 PM Skyler Llamas is undergoing usp monitoring with a Reveal implantable loop recorder. ??The remote transmission from 02-May-2022 to 06-Jun-2022 (36 days) showed the following results: Baseline Strip: Sinus rhythm Episodes Total: None Evaluation of Episodes: ??No significant arrhythmia or atrial fibrillation episodes were noted. Please contact me if you have any questions or concerns, thank you. Lizabeth Ontiveros MD PROCEDURE/VT NOR SURGICAL ORDERABLES * CA ILR DEVICE INTERROGAT REMOTE, CA INTG DVC E R 30 D;REC TRANS & TR (05/13/2022 6:27 PM FIELD OPERATOR) Narrative Chuck Muñoz MD - 05/13/2022 6:27 PM FIELD OPERATOR Chuck Muñoz MD ? 05/13/2022 ??6:28 PM Dear Skyler Llamas, I reviewed the remote interrogation of your loop recorder. ?? Your device's sensing is appropriate and stable. During this most recent monitored period (28-Mar-2022 to 02-May-2022), your atrial fibrillation/tachycardia burden was 0% and you had no arrhythmias. Device function is normal, no programming changes are required, and no medications will need to be changed. Please call our offices if you have any further questions. ?? Sincerely, Chuck Muñoz 05/13/2022 Chuck Muñoz MD PROCEDURE/MINOR SURG ICAL ORDERABLES * CARDIAC EKG ORDER (05/04/2022 2:12 PM FIELD OPERATOR) Only the most recent of2 resultswithin the time period is included. Narrative 05/04/2022 2:12 PM FIELD OPERATOR Ordered by an unspecified provider. Scanned Document CARDIAC SERVICES ORD ERABLES * (ABNORMAL) CBC W AUTO DIFFERENTIAL (05/03/2022 3:33 AM FIELD OPERATOR) Only the most recent of13 resultswithin the time period is included. WBC 6.9 3.5 - 10.5 10? 3 /uL 05/03/2022 3:54 AM [facility] RBC 3.27(L) 4.30 - 5.70 10? 6 /uL 05/03/2022 3:54 AM [facility] Hemoglobin 9.9(L) 12.0 - 17.6 g/dL 05/03/2022 3:54 AM [facility] Hematocrit 30.0(L) 35.2 - 51.7 % 05/03/2022 3:54 AM [facility] MCV 91.7 80.7 - 98.3 fL 05/03/2022 3:54 AM [facility] MCH 30.3 26.7 - 34.0 pg 05/03/2022 3:54 AM [facility] MCHC 33.0 30.8 - 35.9 g/dL 05/03/2022 3:54 AM [facility] RDW-SD 50.1(H) 36.0 - 50.0 fL 05/03/2022 3:54 AM [facility] RDW-CV 14.8 11.2 - 14.8 % 05/03/2022 3:54 AM [facility] Platelet Count 140(L) 150 - 400 10? 3 /uL 05/03/2022 3:54 AM [facility] MPV 8.4(L) 9.4 - 12.9 fL 05/03/2022 3:54 AM [facility] nRBC Absolute 0.00 0 10? 3 /uL 05/03/2022 3:54 AM [facility] nRBC Auto 0.0 0 /100 WBC 05/03/2022 3:54 AM [facility] Neutrophils % 68.1 35.0 - 70.0 % 05/03/2022 3:54 AM [facility] Lymphocytes % 20.1 20.0 - 43.0 % 05/03/2022 3:54 AM [facility] Monocytes % 9.6 5.0 - 13.0 % 05/03/2022 3:54 AM [facility] Eosinophils % 1.6 0.0 - 6.0 % 05/03/2022 3:54 AM [facility] Basophil % 0.3 0.0 - 2.0 % 05/03/2022 3:54 AM [facility] Neutrophils Absolute 4.68 1.60 - 7.00 10? 3 /uL 05/03/2022 3:54 AM [facility] Lymphocyte Absolute 1.38 1.10 - 3.90 10? 3 /uL 05/03/2022 3:54 AM [facility] Monocytes Absolute 0.66 0.26 - 1.07 10? 3 /uL 05/03/2022 3:54 AM [facility] Eosinophils Absolute 0.11 0.00 - 0.47 10? 3 /uL 05/03/2022 3:54 AM [facility] Basophils Absolute 0.02 0.00 - 0.08 10? 3 /uL 05/03/2022 3:54 AM [facility] Immature Granulocytes % 0.3 0.0 - 1.0 % 05/03/2022 3:54 AM [facility] Immature Granulocytes Absolute 0.02 05/03/2022 3:54 AM [facility] Blood BLOOD SPECIMEN / Unknown Venipuncture / Unknown 05/03/2022 3:33 AM FIELD OPERATOR 05/03/2022 3:45 AM [facility] Ken Fu MD LAB - HEMATOLOGY ORD ERABLES Performing Organization Address [facility]/State/ZIP Co de Phone Number [facility] [address] [place] [address], [facility] [phone] * (ABNORMAL) BASIC METABOLIC PANEL (CALCIUM TOTAL) (05/03/2022 3:33 AM [facility]) Only the most recent of18 resultswithin the time period is included. BUN 14 7 - 26 mg/dL 05/03/2022 4:42 AM [facility] Creatinine 0.59(L) 0.71 - 1.16 mg/dL 05/03/2022 4:42 AM [facility] Sodium 140 136 - 145 mmol/L 05/03/2022 4:42 AM [facility] Potassium 4.3 3.5 - 4.5 mmol/L 05/03/2022 4:42 AM [facility] Comment:Confirmed by repeat analysis. Chloride 105 98 - 107 mmol/L 05/03/2022 4:42 AM [facility] Comment:Confirmed by repeat analysis. CO2 24 22 - 29 mmol/L 05/03/2022 4:42 AM [facility] Glucose 143(H) 70 - 115 mg/dL 05/03/2022 4:42 AM [facility] Calcium 9.0 8.4 - 10.2 mg/dL 05/03/2022 4:42 AM [facility] Anion Gap 15 8 - 18 05/03/2022 4:42 AM [facility] BUN/Creatinine Ratio 24(H) 7 - 23 05/03/2022 4:42 AM [facility] Osmolality Calculated 293 270 - 300 mOsm/kg 05/03/2022 4:42 AM [facility] eGFR by CKD-EPI >90 >=90 mL/min/1.7 3 m2 05/03/2022 4:42 AM [facility] Blood BLOOD SPECIMEN / Unknown Venipuncture / Unknown 05/03/2022 3:33 AM [facility] 05/03/2022 3:45 AM FI[facility]PER[facility] Ken Fu MD LAB - CHEMISTRY [facility]O [facility] Organization Address City/State/ZIP Co de Phone Number [facility] [address] [place] [address], [facility] [phone] * CT HEAD NON CONTRAST (05/01/2022 4:39 AM FIELD OPERATOR) Only the most recent of5 resultswithin the time period is included. Anatomical Region Laterality Modality Head Computed Tomogra phy 05/01/2022 4:41 AM FIELD OPERATOR Impressions 05/01/2022 1:47 PM FIELD OPERATOR IMPRESSION: 1.Interval postsurgical changes from right-sided cranioplasty with placement of extra-axial drain subjacent to the cranioplasty site along the right frontotemporal lobes. Small amount of extra-axial blood products are noted along the posterior aspect along the temporal lobe measuring up to 5 mm in thickness. No midline shift or significant mass effect. 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 > Dictated by Zen Grimm MD (vice president corporate communications) I, Nichol Vargas MD have personally reviewed and interpreted this examination/study. > Interpreting Provider: Nichol Vargas MD on 05/01/2022 1:47 PM Narrative 05/01/2022 1:47 PM FIELD OPERATOR PROCEDURE: ??CT HEAD WO CONTRAST, DATE/TIME OF EXAM: ??05/01/2022 4:40 AM, LOCATION ??[facility] INDICATION: Z98.890: History of cranioplasty ADDITIONAL CLINICAL INFORMATION: Ordering Provider Reason For Exam: ??post op COMPARISON: CT head dated 04/04/2022 TECHNIQUE: CT of the head was performed without contrast according to standard protocol. FINDINGS: Postsurgical changes of right frontoparietal temporal cranioplasty at the site of prior decompressive hemicraniectomy. Interval placement of of extra-axial surgical drain along the right frontotemporal lobes subjacent to the cranioplasty site.. Small hyperdensities extra-axially along the cranioplasty site predominantly along the posterior aspect could be secondary to small amount of extra-axial blood products measuring up to 5 mm in maximum thickness (image 21, series 3). Minimal mass effect on the adjacent temporal lobe.. Confluent large area of encephalomalacia involving right frontal, parietal and temporal lobes, sequela of right MCA territory infarct, again noted.. No significant mass effect or midline shift. Redemonstration of prominent extra-axial space/arachnoid cyst along the left cerebellar hemisphere. Unchanged hypodensities along the corticospinal tract there is a stimulating degeneration. Small areas of chronic infarcts also noted in the right cerebellar hemisphere. No evidence of hydrocephalus. Mild ex vacuo dilation of the right lateral ventricle again noted. Periventricular white matter hypoattenuation is indicative of chronic small vessel ischemic disease. Tapia-white matter differentiation otherwise appears normal. There is vascular calcification of the carotid siphons. The orbits appear normal. The paranasal sinuses are clear. The mastoid air cells are clear. Lucency along the the posterior margin of the cranioplasty bone could be secondary to postsurgical change (image 48, series 4). Surgical avtar noted along the right scalp with mild soft tissue swelling secondary to recent postsurgical changes. Procedure Note Nichol Vargas MD - 05/01/2022 PROCEDURE: CT HEAD WO CONTRAST, DATE/TIME OF EXAM: 05/01/2022 4:40 AM, LOCATION [facility] INDICATION: Z98.890: History of cranioplasty ADDITIONAL CLINICAL INFORMATION: Ordering Provider Reason For Exam: post op COMPARISON: CT head dated 04/04/2022 TECHNIQUE: CT of the head was performed without contrast according to standard protocol. FINDINGS: Postsurgical changes of right frontoparietal temporal cranioplasty atthe site of prior decompressive hemicraniectomy. Interval placement of of extra-axial surgical drain along the right frontotemporal lobessubjacent to the cranioplasty site.. Small hyperdensities extra-axially along the cranioplasty site predominantly along the posterior aspect could be secondary to small amount of extra-axial blood products measuring up to5 mm in maximum thickness (image 21, series 3). Minimal mass effect on the adjacent temporal lobe.. Confluent large area of encephalomalaciainvolving right frontal, parietal and temporal lobes, sequela of right MCAterritory infarct, again noted.. No significant mass effect or midline shift. Redemonstration of prominent extra-axial space/arachnoid cyst along the left cerebellar hemisphere. Unchanged hypodensities along thecorticospinal tract there is a stimulating degeneration. Small areas of chronicinfarcts also noted in the right cerebellar hemisphere. No evidence of hydrocephalus. Mild ex vacuo dilation of the rightlateral ventricle again noted. Periventricular white matter hypoattenuation is indicative of chronic small vessel ischemic disease. Tapia-white matter differentiation otherwise appears normal. There is vascularcalcification of the carotid siphons. The orbits appear normal. The paranasal sinusesare clear. The mastoid air cells are clear. Lucency along the the posterior margin of the cranioplasty bone could be secondary to postsurgicalchange (image 48, series 4). Surgical avtar noted along the right scalp with mild soft tissue swelling secondary to recent postsurgical changes. IMPRESSION: 1.Interval postsurgical changes from right-sided cranioplasty with placement of extra-axial drain subjacent to the cranioplasty site alongthe right frontotemporal lobes. Small amount of extra-axial blood productsare noted along the posterior aspect along the temporal lobe measuring up to5 mm in thickness. No midline shift or significant mass effect. 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 > Dictated by Zen Grimm MD (vice president corporate communications) I, Nichol Vargas MD have personally reviewed and interpreted this examination/study. > Interpreting Provider: Nichol Vargas MD on 05/01/2022 1:[address] ORDERABLES * IV PLACEMENT PERFORMABLE (04/30/2022 8:49 AM FIELD OPERATOR) Narrative Marvin De La Cruz DO - 04/30/2022 8:49 AM FIELD OPERATOR Marvin De La Cruz DO ? 04/30/2022 ??8:49 AM Peripheral IV Line Placement: Patient Location: ??OR Procedure: IV start (08877). Procedure Section: ?? Skin Prep: alcohol. Orientation: right Location: leg Local Anesthetic Used? ??No Catheter Gauge: 18 Number of Attempts: 2. Procedure Tolerance: tolerated well. Procedure Start Time: 04/30/2022 7:54 AM. Staff Section ? Anesthesia Provider: Marvin De La Cruz DO Performed the procedure Edy Morales MD GENERAL ANESTHESIA O RDERABLES * ETT LINE PERFORMABLE (04/30/2022 7:46 AM FIELD OPERATOR) Narrative Marvin De La Cruz DO - 04/30/2022 7:46 AM FIELD OPERATOR Marvin De La Cruz DO ? 04/30/2022 ??8:10 AM Endotracheal Tube Placement: ? Patient Location: OR. Intubation Event Date/Time: ??04/30/2022 7:46 AM Procedure: intubation (43115). Procedure Section: ?? Sedation: under general anesthesia. Indications for Airway Management: ??anesthesia Procedure pretreatments used? ??No Induction: standard IV Patient Position: ??supine Mask Ventilation: easy. Blade Type: Alicea Blade Size: 2 Laryngoscopy View: grade 2 (partial cords) Intubation Adjuncts: stylet, cricoid pressure and Eschmann introducer Tube: endotracheal tube Placement: oral Tube type: cuff - inflated Tube Size (MM): 8 Depth of Insertion (CM): 22 Measured From: lips Cuff volume (mL): ??8 Cuff Inflated With: air Number of Attempts: 3. Ventilation between attempts: Yes. Placement Verified By: direct visualization, bilateral breath sounds, chest auscultation and CO2 monitor CXR Findings: ETT in proper place. Tube secured with: ??adhesive tape. Dentition unchanged? ??Yes Difficult Airway? ??No. Procedure Start Time: 04/30/2022 7:46 AM. Staff Section ? Anesthesia Provider: Edy Morales MD, Performed the procedure ? Provider #1: Marvin De La Cruz DO, Performed the procedure. Edy Morales MD GENERAL ANESTHESIA O RDERABLES * TYPE + SCREEN PANEL (04/30/2022 6:14 AM FIELD OPERATOR) Only the most recent of2 resultswithin the time period is included. Antibody Screen NEG 7:23 AM FIELD OPERATOR [facility] ABO Rh O POS 04/30/2022 7:23 AM FIELD OPERATOR [facility] Blood Bank BLOOD SPECIMEN / Unknown Venipuncture / Unknown 04/30/2022 6:14 AM FIELD OPERATOR 04/30/2022 6:25 AM FIELD OPERATOR Ken Fu MD LAB - BLOOD BANK ORD ERABLES Performing Organization Address [facility]/State/ZIP Co de Phone Number [facility] [address] [place] [address], [facility] [phone] * CA ILR DEVICE INTERROGAT REMOTE, CA INTG DVC E R 30 D;REC TRANS & TR (04/08/2022 8:41 PM FIELD OPERATOR) Narrative Chuck Muñoz MD - 04/08/2022 8:41 PM FIELD OPERATOR Chuck Muñoz MD ? 04/08/2022 ??8:42 PM Dear Skyler Llamas, I reviewed the remote interrogation of your loop recorder. ?? Your device's sensing is appropriate and stable. During this most recent monitored period (14-Dec-2021 00:00 to 08-Apr-2022), your atrial fibrillation/tachycardia burden was 0% and you had no arrhythmias. Device function is normal, no programming changes are required, and no medications will need to be changed. Please call our offices if you have any further questions. ?? Sincerely, Chuck Muñoz 04/08/2022 Chuck Muñoz MD PROCEDURE/MINOR SURG ICAL ORDERABLES * PTT [facility] (04/04/2022 12:41 PM FIELD OPERATOR) APTT 28.4 23.0 - 38.4 Seconds 04/04/2022 1:28 PM FIELD OPERATOR [facility] Comment:Suggested therapeuti c range for full dose I.V. unfractionated heparin therapy for venous thromboembolism is 71 to 109 seconds. Blood BLOOD SPECIMEN / Unknown Lab Venipuncture / Unknown 04/04/2022 12:41 PM FIELD OPERATOR 04/04/2022 1:05 PM FIELD OPERATOR Ken Fu MD LAB - COAGULATION OR DERABLES [address] [address], [facility] [phone] * PT-INR [facility] (04/04/2022 12:41 PM FIELD OPERATOR) Only the most recent of2 resultswithin the time period is included. PT 12.9 12.1 - 14.8 Seconds 04/04/2022 1:28 PM FIELD OPERATOR [facility] INR 1.0 See Comment 04/04/2022 1:28 PM FIELD OPERATOR [facility] Comment:The suggested therap eutic range for standard coumadin (warfarin) therapy is an INR of 2.0-3.0. For high-risk patients (Mechanical Mitral Valve Prosthesis, etc.), the suggested prophylactic therapeutic range is an INR of 2.5-3.5. Blood BLOOD SPECIMEN / Unknown Lab Venipuncture / Unknown 04/04/2022 12:41 PM FIELD OPERATOR 04/04/2022 1:05 PM FIELD OPERATOR Ken Fu MD LAB - COAGULATION OR DERABLES [address] [address], [place] [phone] * XR CHEST 2VW (04/04/2022 12:30 PM FIELD OPERATOR) Anatomical Region Laterality Modality Chest Radiographic Divina ging 04/04/2022 1:06 PM FIELD OPERATOR Impressions 04/04/2022 4:23 PM FIELD OPERATOR IMPRESSION: No acute pulmonary process is identified. Report dictated by Karl Pinzon MD (radiology ct technologist). Shadia Alan MD have personally reviewed and interpreted this examination/study. > Interpreting Provider: Shadia Mcdaniels MD on 04/04/2022 4:23 PM Narrative 04/04/2022 4:23 PM FIELD OPERATOR PROCEDURE: ??XR CHEST 2VW, DATE/TIME OF EXAM: ??04/04/2022 12:30 PM, LOCATION [facility] INDICATION: Z01.818: Pre-op testing COMPARISON: Multiple prior CXRs (most recent on 12/20/2021). FINDINGS: Loop recorder superimposes the left lower hemithorax. Bibasilar airspace opacities are improved since last imaging 12/20/2021. There is no focal consolidation, pleural effusion, or pneumothorax. The cardiomediastinal silhouette is normal. The visible bony thorax is intact. Procedure Note Shayna Mcdaniels MD - 04/04/2022 PROCEDURE: XR CHEST 2VW, DATE/TIME OF EXAM: 04/04/2022 12:30 PM, LOCATION [facility] INDICATION: Z01.818: Pre-op testing COMPARISON: Multiple prior CXRs (most recent on 12/20/2021). FINDINGS: Loop recorder superimposes the left lower hemithorax. Bibasilar airspace opacities are improved since last imaging 12/20/2021. There is no focal consolidation, pleural effusion, or pneumothorax. The cardiomediastinal silhouette is normal. The visible bony thorax is intact. IMPRESSION: No acute pulmonary process is identified. Report dictated by Karl Pinzon MD (radiology ct technologist). Shadia Alan MD have personally reviewed and interpreted this examination/study. > Interpreting Provider: Shadia Mcdaniels MD on 04/04/2022 4:23 PM Ken Fu MD DIAGNOSTIC IMAGING O RDERABLES * EKG 12-LEAD (04/04/2022 10:51 AM FIELD OPERATOR) Only the most recent of2 resultswithin the time period is included. Ventricular Rate 81 BPM [facility] Atrial Rate 81 BPM [facility] P-R Interval 170 ms [facility] QRS Duration ms 92 ms [facility] Q-T Interval ms 366 ms [facility] QTC Calculation (Bezet) 425 ms [facility] Calculated P Curlew 19 degrees [facility] Calculated R [place]lew -17 degrees [facility] Calculated T [place]lew 34 degrees [facility] Interpretation EKG NORMAL SINUS RHYTHM MINIMAL VOLTAGE CRITERIA FOR LVH, MAY BE NORMAL VARIANT ( R in aVL ) BORDERLINE ECG NO PREVIOUS ECGS AVAILABLE Confirmed by SHAE BROWN MD ([id number]) on 04/04/2022 1:52:37 PM [facility] 04/04/2022 10:5 1 AM FIELD OPERATOR 04/04/2022 1:52 PM FIELD OPERATOR Ken Fu MD ECG ORDERABLES [facility] * CA ILR DEVICE INTERROGAT REMOTE, CA INTG DVC E R 30 D;REC TRANS & TR (03/03/2022 9:27 AM FIELD OPERATOR) Narrative Chuck Muñoz MD - 03/03/2022 9:27 AM FIELD OPERATOR Chuck Muñoz MD ? 03/03/2022 ??9:29 AM Dear Skyler Llamas, I reviewed the remote interrogation of your loop recorder. ?? Your device's sensing is appropriate and stable. During this most recent monitored period (17-Jan-2022 to 21-Feb-2022), your atrial fibrillation/tachycardia burden was 0% and you had no arrhythmias. Device function is normal, no programming changes are required, and no medications will need to be changed. Please call our offices if you have any further questions. ?? Sincerely, Chuck Muñoz 03/03/2022 Chuck Muñoz MD PROCEDURE/MINOR SURG ICAL ORDERABLES * CA ILR DEVICE INTERROGAT REMOTE, CA INTG DVC E R 30 D;REC TRANS & TR (02/05/2022 2:51 PM FIELD OPERATOR) Narrative Karo Contreras, HILDA-ARABELLA - 02/05/2022 2:51 PM FIELD OPERATOR Karo Contreras, HILDA-ARABELLA ? 02/05/2022 ??2:52 PM Skyler Llamas is undergoing joint terminal attack controller monitoring with an implantable loop recorder for stroke surveillance . ??The remote transmission from 12/14/21 to 01/17/22 showed the following results: Baseline Strip: ??Sinus rhythm Episodes: ??None Evaluation of Episodes: ??No arrhythmia episodes were recorded during the monitored period. Please contact me if you have any questions or concerns, thank you. Karo Contreras APRN-ARABELLA PROCEDURE/VT NOR SURGICAL ORDERABLES * (ABNORMAL) COMPREHENSIVE METABOLIC PANEL (01/11/2022 9:21 AM CDT) Only the most recent of8 resultswithin the time period is included. Glucose 145(H) 70 - 105 mg/dL 01/11/2022 10:15 AM CDT [facility] Sodium 132(L) 136 - 145 mmol/L 01/11/2022 10:15 AM CDT [facility] Potassium 4.3 3.5 - 5.1 mmol/L 01/11/2022 10:15 AM CDT [facility] Chloride 98 98 - 107 mmol/L 01/11/2022 10:15 AM CDT [facility] CO2 23 23 - 31 mmol/L 01/11/2022 10:15 AM CDT [facility] Calcium 9.4 8.4 - 10.4 mg/dL 01/11/2022 10:15 AM CDT [facility] Anion Gap 11 8 - 18 mmol/L 01/11/2022 10:15 AM CDT [facility] BUN 24 8.4 - 25.7 mg/dL 01/11/2022 10:15 AM CDT [facility] Creatinine 0.75 0.72 - 1.25 mg/dL 01/11/2022 10:15 AM CDT [facility] Alkaline Phosphatase 82 40 - 150 U/L 01/11/2022 10:15 AM CDT [facility] ALT 66(H) 0 - 61 U/L 01/11/2022 10:15 AM CDT [facility] AST 29 5 - 34 U/L 01/11/2022 10:15 AM CDT [facility] Protein Total 6.8 6.4 - 8.3 gm/dL 01/11/2022 10:15 AM CDT [facility] Albumin 3.7 3.2 - 4.6 gm/dL 01/11/2022 10:15 AM CDT [facility] Bilirubin Total 1.0 0.2 - 1.2 mg/dL 01/11/2022 10:15 AM CDT [facility] eGFR by CKD-EPI >90 >=90 mL/min/1.7 3 m2 01/11/2022 10:15 AM CDT [facility] Blood BLOOD SPECIMEN / Unknown Lab Venipuncture / Unknown 01/11/2022 9:21 AM CDT 01/11/2022 9:31 AM CDT Farooq Ocampo DO LAB - CHEMISTRY JUDYE PAMELA [facility] Organization Address City/State/[facility] Co de Phone Number [facility] [address] [place] [address] * XR FOOT LEFT 2VW (01/10/2022 12:37 PM CDT) Anatomical Region Laterality Modality Ankle / Foot Radiographic Divina ging 01/10/2022 12:5 1 PM CDT Impressions 01/10/2022 12:52 PM CDT IMPRESSION: No evidence of fracture. Degenerative changes of the first MTP joint. > Interpreting Provider: Maurisio Hogue MD on 01/10/2022 12:52 PM Narrative 01/10/2022 12:52 PM CDT PROCEDURE: ??XR FOOT LEFT 2VW, DATE/TIME OF EXAM: ??01/10/2022 12:37 PM, LOCATION ??[facility] INDICATION: Pain r/o fractures Findings: No fractures identified. There are degenerative changes of the first MTP joint. The remaining joint spaces are well-maintained. There are hammertoe deformities of the second through fifth toes. There is no periosteal reaction or bony destruction. Procedure Note Maurisio Hogue MD - 01/10/2022 PROCEDURE: XR FOOT LEFT 2VW, DATE/TIME OF EXAM: 01/10/2022 12:37 PM, LOCATION [facility] INDICATION: Pain r/o fractures Findings: No fractures identified. There are degenerative changes of the first MTP joint. The remaining joint spaces are well-maintained. Thereare hammertoe deformities of the second through fifth toes. There is no periosteal reaction or bony destruction. IMPRESSION: No evidence of fracture. Degenerative changes of the first MTP joint. > Interpreting Provider: Maurisio Hogue MD on 01/10/2022 12:52 PM Rea Donnelly MD DIAGNOSTIC IMAGING O RDERABLES * FL SWALLOWING FUNCTION STUDY (01/02/2022 1:30 PM CDT) Only the most recent of2 resultswithin the time period is included. Anatomical Region Laterality Modality Chest Radiographic Divina ging 01/03/2022 10:4 9 AM CDT Narrative 01/03/2022 11:41 AM CDT PROCEDURE: ??FL SWALLOWING FUNCTION STUDY, DATE/TIME OF EXAM: ??01/02/2022 2:58 PM, LOCATION ??[facility] INDICATION: dysphagia COMPARISON: None. FLUOROSCOPY DOSE: ??27.56 mGy Reference air kerma (ka,r). FLUOROSCOPY TIME: ??2.6 minutes; Number of images: ??841 TECHNIQUE: Modified barium swallow fluoroscopy performed in conjunction with speech pathology staff. The speech pathologist administered varying thickness barium liquids and solids under direct Cine fluoroscopy. FINDINGS/IMPRESSION: 1.Penetration with thin liquids. 2.Pooling in the vallecular and piriform sinuses. Soft tissue prominence seen anterior to the trachea on the lateral view. Further evaluation with neck CT could be obtained. 3.Fluoroscopic assistance was provided for a modified barium swallow test performed by Speech Therapy. Please see the Speech Therapy report for details. Report dictated by Topher Mann MD,PhD (radiology ct technologist). Guicho Alan MD have personally reviewed and interpreted this examination/study. > Interpreting Provider: Guicho Stevenson MD on 01/03/2022 11:41 AM Procedure Note Guicho Stevenson MD - 01/03/2022 PROCEDURE: FL SWALLOWING FUNCTION STUDY, DATE/TIME OF EXAM: 01/02/2022 2:58 PM, LOCATION [facility] INDICATION: dysphagia COMPARISON: None. FLUOROSCOPY DOSE: 27.56 mGy Reference air kerma (ka,r). FLUOROSCOPY TIME: 2.6 minutes; Number of images: 841 TECHNIQUE: Modified barium swallow fluoroscopy performed in conjunction with speech pathology staff. The speech pathologist administered varying thickness barium liquids and solids under direct Cine fluoroscopy. FINDINGS/IMPRESSION: 1.Penetration with thin liquids. 2.Pooling in the vallecular and piriform sinuses. Soft tissue prominence seen anterior to the trachea on the lateral view. Further evaluationwith neck CT could be obtained. 3.Fluoroscopic assistance was provided for a modified barium swallowtest performed by Speech Therapy. Please see the Speech Therapy report for details. Report dictated by Topher Mann MD,PhD (radiology ct technologist). I, Guicho Stevenson MD have personally reviewed and interpreted this examination/study. > Interpreting Provider: Guicho Stevenson MD on 01/03/2022 11:41 AM Rea Donnelly MD FLUOROSCOPY ORDERABL ES * (ABNORMAL) CBC W/O DIFFERENTIAL (12/22/2021 4:08 AM CDT) Only the most recent of13 resultswithin the time period is included. WBC 10.9(H) 3.5 - 10.5 10? 3 /uL 12/22/2021 4:29 AM [facility] RBC 3.59(L) 4.30 - 5.70 10? 6 /uL 12/22/2021 4:29 AM [facility] Hemoglobin 11.7(L) 12.0 - 17.6 g/dL 12/22/2021 4:29 AM [facility] Hematocrit 34.8(L) 35.2 - 51.7 % 12/22/2021 4:29 AM [facility] MCV 96.9 80.7 - 98.3 fL 12/22/2021 4:29 AM [facility] MCH 32.6 26.7 - 34.0 pg 12/22/2021 4:29 AM CDT [facility] MCHC 33.6 30.8 - 35.9 g/dL 12/22/2021 4:29 AM [facility] Platelet Count 233 150 - 400 10? 3 /uL 12/22/2021 4:29 AM T [facility] RDW-SD 45.1 36.0 - 50.0 fL 12/22/2021 4:29 AM T [facility] RDW-CV 12.8 11.2 - 14.8 % 12/22/2021 4:29 AM [facility] MPV 9.0(L) 9.4 - 12.9 fL 12/22/2021 4:29 AM [facility] nRBC Absolute 0.00 0 10? 3 /uL 12/22/2021 4:29 AM [facility] nRBC Auto 0.0 0 /100 WBC 12/22/2021 4:29 AM [facility] Blood BLOOD SPECIMEN / Unknown Lab Venipuncture / Unknown 12/22/2021 4:08 AM CDT 12/22/2021 4:15 AM CDT Jeremiah Brennan MD LAB - HEMATOLOGY ORD ERABLES Performing Organization Address City/[facility]/ZIP Co de Phone Number [address] [address], [facility] [phone] * PHOSPHORUS BLOOD (12/22/2021 4:08 AM CDT) Only the most recent of13 resultswithin the time period is included. Phosphorus 3.8 2.8 - 5.1 mg/dL 12/22/2021 4:42 AM CDT [facility] Blood BLOOD SPECIMEN / Unknown Lab Venipuncture / Unknown 12/22/2021 4:08 AM CDT 12/22/2021 4:15 AM CDT Jeremiah Brennan MD LAB - CHEMISTRY ORDE RABIVANIA [address] [address], [facility] [phone] * MAGNESIUM BLOOD (12/22/2021 4:08 AM CDT) Only the most recent of13 resultswithin the time period is included. Pathologist [facility] Magnesium 2.1 1.6 - 2.6 mg/dL 12/22/2021 4:42 AM CDT [facility] Blood BLOOD SPECIMEN / Unknown Lab Venipuncture / Unknown 12/22/2021 4:08 AM CDT 12/22/2021 4:15 AM CDT Jeremiah Brennan MD LAB - CHEMISTRY ORDE PAMELA Performing Organization Address City/[facility]/ZIP Co de Phone Number [address] [address], [facility] [phone] * (ABNORMAL) GLUCOSE - POINT OF CARE (12/21/2021 11:38 AM CDT) Only the most recent of14 resultswithin the time period is included. [facility] Glucose WB/POC 173(H) 70 - 115 mg/dL 12/21/2021 11:39 AM CDT [facility] Specimen Type Arterial 12/21/2021 11:39 AM CDT [facility] Blood BLOOD SPECIMEN / Unknown 12/21/2021 11:38 AM CDT 12/21/2021 11:39 AM CDT Jeremiah Brennan MD LAB - POINT OF CARE ORDERABLES Performing Organization Address City/[facility]/ZIP Co de Phone Number [address] [address], [facility] [phone] * XR CHEST 1VW PORTABLE (12/20/2021 4:54 AM CDT) Only the most recent of3 resultswithin the time period is included. Anatomical Region Laterality Modality Chest Radiographic Divina ging 12/20/2021 9:10 AM CDT Narrative 12/20/2021 11:58 AM CDT PROCEDURE: ??XR CHEST 1VW PORTABLE, DATE/TIME OF EXAM: ??12/20/2021 4:54 AM, LOCATION ??[facility] INDICATION: J96.00: Acute respiratory failure, unspecified whether with hypoxia or hypercapnia ([facility]/HCC) ADDITIONAL CLINICAL INFORMATION: Ordering Provider Reason For Exam: ??post extubation COMPARISON: 12/19/2021 FINDINGS/IMPRESSION: A loop recorder superimposes the left heart. A feeding tube courses below the diaphragm with tip projecting over the left upper quadrant. Interval extubation. Bilateral lower lung interstitial opacities likely representing atelectasis, edema, or airspace disease. Lung aeration is not significantly changed. A small pleural effusion cannot be excluded. No appreciable pneumothorax. Heart size and mediastinal contours are stable. Report dictated by Donny Jefferosn MD (radiology ct technologist). > Dictated by Donny Jefferson ([employer] Switchboard Operator) 12/20/2021 9:38 AM IKemar MD have personally reviewed and interpreted this examination/study. > Interpreting Provider: Kemar Montalvo MD on 12/20/2021 11:58 AM Procedure Note Kemar Montalvo MD - 12/20/2021 PROCEDURE: XR CHEST 1VW PORTABLE, DATE/TIME OF EXAM: 12/20/2021 4:54AM, LOCATION [facility] INDICATION: J96.00: Acute respiratory failure, unspecified whether with hypoxia or hypercapnia ([facility]) ADDITIONAL CLINICAL INFORMATION: Ordering Provider Reason For Exam: post extubation COMPARISON: 12/19/2021 FINDINGS/IMPRESSION: A loop recorder superimposes the left heart. A feeding tube coursesbelow the diaphragm with tip projecting over the left upper quadrant. Interval extubation. Bilateral lower lung interstitial opacities likely representing atelectasis, edema, or airspace disease. Lung aeration is notsignificantly changed. A small pleural effusion cannot be excluded. No appreciable pneumothorax. Heart size and mediastinal contours are stable. Report dictated by Donny Jefferson MD (radiology ct technologist). > Dictated by Donny Jefferson ([employer] Switchboard Operator) 12/20/2021 9:38 AM Kemar Alan MD have personally reviewed and interpreted this examination/study. > Interpreting Provider: Kemar Montalvo MD on 12/20/2021 11:58 AM Jeremiah Brennan MD DIAGNOSTIC IMAGING O RDERABLES * (ABNORMAL) BLOOD GASES ART + COOX PANEL (12/20/2021 12:15 AM [facility]) Only the most recent [facility] resultswithin the time period is included. pH Arterial 7.49(H) 7.35 - 7.45 pH 12/20/2021 12:21 AM [facility] pO2 Arterial 83 80 - 100 mmHg 12/20/2021 12:21 AM [facility] pCO2 Arterial 33(L) 35 - 45 mmHg 12:21 AM [facility] HCO3 Arterial 25 20 - 30 mmol/l 12/20/2021 12:21 AM [facility] BE Arterial 2.0 -2.0 - 2.0 mmol/L 12/20/2021 12:21 AM [facility] Oxyhemoglobin Arterial 96.0 % 12/20/2021 12:21 AM [facility] Dexoyhemoglobin (HHB) % 1.3 % 12/20/2021 12:21 AM [facility] Methemoglobin <0.8 0.0 - 2.0 % 12/20/2021 12:21 AM [facility] Carboxyhemoglobin 2.1(H) 0.0 - 2.0 % 2021 12:21 AM [facility] O2 Content Arterial 14.7 Interpret within clinical context ml/dL 12/20/2021 12:21 AM [facility] Hemoglobin by COOX 10.8(L) 12.0 - 17.6 g/dL 12/20/2021 12:21 AM [facility] O2 Saturation Arterial 99 90 - 100 % 12/20/2021 12:21 AM [facility] FI O2 Arterial 50.0 % 12/20/2021 12:21 AM [facility] Blood, arterial ARTERIAL BLOOD SPECIMEN / Unknown Arterial Puncture / Unknown 12/20/2021 12:15 AM CDT 12/20/2021 12:18 AM [facility] - 12/20/2021 12:21 AM [facility] Carboxyhemoglobin Normal Concentration: Non-smokers: 0-2%; Smokers: 0-9%; Toxic: >20% Xiomara Shea MD LAB - BLOOD GA SES ORDERABLES [id number] [place] [address], [facility] [phone] * XR ABDOMEN KUB PORTABLE (12/19/2021 5:35 PM CDT) Only the most recent of2 resultswithin the time period is included. Anatomical Region Laterality Modality Abdomen Radiographic Divina ging 12/20/2021 7:35 AM CDT Narrative 12/20/2021 9:01 AM CDT PROCEDURE: ??XR ABDOMEN KUB PORTABLE, DATE/TIME OF EXAM: ??12/19/2021 5:35 PM, LOCATION ??[facility] INDICATION: I63.9: Cerebrovascular accident (CVA), unspecified mechanism (CMS/HCC) ADDITIONAL CLINICAL INFORMATION: Ordering Provider Reason For Exam: ??Dobhoff placement COMPARISON: X-ray abdomen KUB 12/28/2021. FINDINGS/IMPRESSION: Dobbhoff tube is seen coursing below the diaphragm with the tip projecting into the gastric body. Report dictated by Major Hinton MD, MD (radiology ct technologist). Andrez Alan MD have personally reviewed and interpreted this examination/study. > Interpreting Provider: Andrez Valentin MD on 12/20/2021 9:01 AM Procedure Note Andrez Valentin MD - 12/20/2021 PROCEDURE: XR ABDOMEN KUB PORTABLE, DATE/TIME OF EXAM: 12/19/2021 5:35 PM, LOCATION [facility] INDICATION: I63.9: Cerebrovascular accident (CVA), unspecified mechanism (CMS/HCC) ADDITIONAL CLINICAL INFORMATION: Ordering Provider Reason For Exam: Dobhoff placement COMPARISON: X-ray abdomen KUB 12/28/2021. FINDINGS/IMPRESSION: Dobbhoff tube is seen coursing below the diaphragm with the tipprojecting into the gastric body. Report dictated by Major Hinton MD, MD (radiology ct technologist). Andrez Alan MD have personally reviewed and interpreted this examination/study. > Interpreting Provider: Andrez Valentin MD on 12/20/2021 9:01 AM Jeremiah Brennan MD DIAGNOSTIC IMAGING O RDERABLES * MRSA DNA PCR (12/14/2021 7:23 PM CDT) MRSA DNA by PCR Not detected Not detected 12/15/2021 12:06 AM CDT [facility] Microbiology SPECIMEN FROM NASAL FOSSAE / Unknown Collection / Unknown 12/14/2021 7:23 PM CDT 12/14/2021 7:25 PM CDT Narrative [facility] - 12/15/2021 12:06 AM CDT Methicillin-resistant Staphylococcus aureus (MRSA) DNA is not detected (presumed not colonized with MRSA). Choco Granda MD LAB - MICROBIOLOGY ORDERABLES [facility] [address] [place] [address], [facility] [phone] * (ABNORMAL) CULTURE SPUTUM+GRAM STAIN (12/14/2021 11:39 AM CDT) Culture Heavy Streptococcus pneumoniae(A) RINA 12/18/2021 12:44 AM CDT [facility] Culture Light normal oropharyngeal yumi RINA 12/18/2021 12:44 AM CDT [facility] Gram Stain <10 per low power field Squamous epithelial cells 12/18/2021 12:44 AM CDT [facility] Gram Stain >= 25 per low power field Polymorphonuclear cells 12/18/2021 12:44 AM CDT [facility] Gram Stain Heavy Gram-positive cocci 12/18/2021 12:44 AM CDT [facility] Gram Stain Rare Gram-negative bacilli 12/18/2021 12:44 AM CDT [facility] Microbiology SPUTUM / Unknown Collection / Unknown 12/14/2021 11:39 AM CDT 12/14/2021 11:52 AM CDT Narrative [facility] - 12/18/2021 12:44 AM CDT For non-meningitis isolates of Streptococcus pneumoniae, a penicillin RINA of <=0.06 ug/ml can predict susceptibility to the following beta-lactam antibiotics: ampicillin (oral or parenteral), ampicillin-sulbactam, amoxicillin, amoxicillin-clavulanic acid, cefaclor, cefdinir, cefditoren, cefepime, cefotaxime, cefpodoxime, cefprozil, ceftaroline, ceftizoxime, ceftriaxone, cefuroxime, doripenem, ertapenem, imipenem and meropenem. Organism Antibiotic Method Susceptibility Streptococcus pneumoniae Cefotaxime-meningitis RINA 0.5 ug/mL: Susceptible Streptococcus pneumoniae Cefotaxime-nonmeningitis RINA 0.5 ug/mL: Susceptible Streptococcus pneumoniae Ceftriaxone-meningitis RINA 0.5 ug/mL: Susceptible Streptococcus pneumoniae Ceftriaxone-nonmeningitis RINA 0.5 ug/mL: Susceptible Streptococcus pneumoniae Erythromycin RINA 2 ug/mL: Resistant Streptococcus pneumoniae Levofloxacin RINA <=0.25 ug/mL: Susceptible Streptococcus pneumoniae Penicillin (par enteral, meningitis) RINA 1 ug/mL: Resistant Streptococcus pneumoniae Penicillin (par enteral, nonmeningitis) RINA 1 ug/mL: Susceptible Streptococcus pneumoniae Trimethoprim-izaguirre lfamethoxaz ole RINA <=10 ug/mL: Susceptible Streptococcus pneumoniae Vancomycin RINA 0.5 ug/mL: Susceptible Xiomara Shea MD LAB - MICROBIO LOGY ORDERABLES [facility] [address] [place] [phone] * EP LOOP RECORDER IMPLANT (12/14/2021 9:48 AM CDT) Anatomical Region Laterality Modality Chest X-Ray Angiograph y Narrative 12/14/2021 9:48 AM CDT Shae Brown MD ? 12/14/2021 ??9:57 AM Date of procedure: ??12/14/2021 Operators: ??Dr. Shae Brown Fellow: Dr. Landon Chavez Consent: ??Written - Risks, benefits, and alternatives were discussed with the patient, and the patient verbalized understand and was eager to proceed. ?? Indications: ??See pre-procedure diagnoses above Procedure Description The patient was prepped and draped in the usual sterile fashion. ?? A marking pen was used to carlos the insertion site of the loop recorder, just lateral to the sternum at the level of the 4th intercostal space. ??For local anesthesia, 11 cc of 1% lidocaine with epinephrine was used to infiltrate the surrounding subcutaneous area. ??Using the blade included in the kit, a stab incision was performed. ??Next, the plunger device was inserted through this incision at a 30 degree angle in an inferolateral direction. ??The loop recorder was then injected through the incision using the plunger device. ??Hemostasis was achieved with manual pressure. ??The incision was closed with 3 steri-strips. The patient tolerated the procedure well and was transferred to [facility] in stable condition. ?? Device Characteristics/Parameters Shoot it! REVEAL LINQ II Serial Number: ??[id number] Tachy setting: ??> 167 bpm Leeroy setting: ??< 30 bpm Pause: ??5 second R wave sensitivity: 0.035mV R wave sensing 0.43 mV Complications: ??None Estimated blood loss: ??None Recommendations: 1) ??Routine remote transmission [id number]. I was present throughout the entire procedure and supervised all critical aspects of the procedure. 12/14/2021 9:48 AM Landon Chavez MD Cardiology Attending Attestation: I was present for entire procedure. ??Patient tolerated well. DO Enrique Liao Cardiology ? 12/14/2021 ??9:56 AM Choco Granda MD ELECTROPHYS RADIANT * ECHO MARINA TRANSESOPHAGEAL (12/14/2021 8:55 AM CDT) Anatomical Region Laterality Modality Chest Ultrasound 12/14/2021 8:55 AM CDT Narrative Procedure Note Shae Brown MD - 12/21/2021 Choco Granda MD ECHOCARDIOGRAPHY RA DIANT * SODIUM BLOOD (12/12/2021 6:00 AM CDT) Only the most recent of6 resultswithin the time period is included. Sodium 138 136 - 145 mmol/L 12/12/2021 6:30 AM CDT [facility] Blood BLOOD SPECIMEN / Unknown Venipuncture / Unknown 12/12/2021 6:00 AM CDT 12/12/2021 6:06 AM CDT Choco Granda MD LAB - CHEMISTRY ORD ERABLES Performing Organization Address [facility] Co de Phone Number [address] [address], [place] [phone] * TRIGLYCERIDES BLOOD (12/11/2021 11:46 PM CDT) Triglycerides 142 <150 mg/dL 12/12/2021 12:25 AM CDT [facility] Comment: ATP III Classification of Triglycerides: ?<150 mg/dL: ??Normal ? 150 - 199 mg/dL: ??Borderline High ? 200 - 400 mg/dL: ??High ?>500 mg/dL: ??Very High Blood BLOOD SPECIMEN / Unknown Venipuncture / Unknown 12/11/2021 11:46 PM CDT 12/11/2021 11:52 PM CDT Choco Granda MD LAB - CHEMISTRY ORD ERABLES Performing Organization Address [facility] Co de Phone Number [address] [address], [place] [phone] * ECHO COMPLETE W BUBBLE STUDY (12/11/2021 9:07 AM CDT) Anatomical Region Laterality Modality Chest Echo 12/11/2021 8:23 AM CDT Narrative Procedure Note Shae Brown MD - 12/11/2021 Choco Granda MD ECHOCARDIOGRAPHY RA DIANT * (ABNORMAL) OSMOLALITY BLOOD (12/11/2021 7:00 AM CDT) Only the most recent of4 resultswithin the time period is included. Osmolality 302(H) 270 - 300 mOsm/kg 12/11/2021 8:48 AM CDT [facility] Blood BLOOD SPECIMEN / Unknown Venipuncture / Unknown 12/11/2021 7:00 AM CDT 12/11/2021 7:55 AM CDT Choco Granda MD LAB - CHEMISTRY ORD ERABLES Performing Organization Address [facility]/ZIP Co de Phone Number [address] [address], [facility] [phone] * TSH REFLEX FREE T4 (12/09/2021 11:56 PM CDT) TSH 0.721 0.350 - 4.940 uIU/mL 12/10/2021 12:48 AM CDT [facility] Blood BLOOD SPECIMEN / Unknown Venipuncture / Unknown 12/09/2021 11:56 PM CDT 12/10/2021 12:02 AM CDT Choco Granda MD LAB - CHEMISTRY ORD ERABLES Performing Organization Address City/[facility]/ZIP Co de Phone Number [address] [address], [facility] [phone] * MRI BRAIN NON CONTRAST (12/09/2021 10:18 PM CDT) Anatomical Region Laterality Modality Head Magnetic Resonan ce 12/10/2021 11:2 4 AM CDT Impressions 12/10/2021 11:38 AM CDT IMPRESSION: 1. Evolving extensive right MCA territory infarct involving the right frontal parietal, insula and temporal lobes, right gangliocapsular regions. Thrombus noted in the ??M1 extending into the M2 segments of right MCA. 2. Minimal foci of susceptibility noted in the evolving infarct suggesting petechial hemorrhages. 3. Interval increased mass effect from the acute infarct causing midline shift to about 7 mm to the left. Interval increased effacement of the right lateral and third ventricle. Increased mass effect on the on the brainstem suggesting impending right-sided uncal herniation. These findings were discussed with the patient's care provider, Dr. Mena by Dr. Nichol Vargas via telephone at 11:36 AM on 12/10/2021 with readback comprehension and verification. > Interpreting Provider: Nichol Vargas MD on 12/10/2021 11:38 AM Narrative 12/10/2021 11:38 AM CDT PROCEDURE: ??MRI BRAIN WO CONTRAST, DATE/TIME OF EXAM: ??12/09/2021 10:21 PM, LOCATION ??[facility] INDICATION: I63.9: Cerebrovascular accident (CVA), unspecified mechanism (CMS/HCC) ADDITIONAL CLINICAL INFORMATION: Ordering Provider Reason For Exam: ??Stroke COMPARISON: CT head 12/09/2021 TECHNIQUE: ?? MRI of the brain was performed without contrast. FINDINGS: There is evolving acute extensive confluent infarct involving the right cerebral hemisphere predominantly right frontal lobe and right insula, temporal and parietal lobes and also extending into the basal ganglia and posterior limb of the internal capsule. There is susceptibility along the right M1 and the proximal M2 segments of the MCA suggesting thrombus. Tiny 3-4 foci of punctate susceptibility noted in the right temporal lobe, right frontal lobe could be secondary to petechial hemorrhages. Interval increased mass effect on the brainstem/midbrain. There is interval increased midline shift to the left now measuring 7 mm, increased compared to prior study. There is interval increased effacement of the right lateral ventricle, third ventricle compared to prior study. Susceptibility foci in the bilateral basal ganglia regions could be secondary to calcifications/mineralization Scattered foci of restricted diffusion noted along the cortical and subcortical regions of the right occipital lobe also could be secondary to acute infarcts. Prominent vasculature along the acute infarct noted on susceptibility imaging. Scattered FLAIR hyperintensity noted in the periventricular and subcortical white matter, nonspecific could be sequelae of chronic ischemic small vessel disease. Cerebellar volume loss. The corpus callosum and sella appear normal. The posterior fossa, brainstem, and craniocervical junction otherwise appear normal. The visualized portions of the orbits, paranasal sinuses, and mastoids appear normal. Normal flow voids are demonstrated in the left carotid artery and basilar artery. No flow voids are noted in the right distal cervical, petrous, cavernous segment of the right ICA. Small flow void noted in the right ICA terminus. Nonvisualization of the right M1 and M2 segments of the right MCA consistent with known thrombus seen on prior CTA and susceptibility imaging. The calvarium and visualized cervical spine appear normal. Procedure Note Nichol Vargas MD - 12/10/2021 PROCEDURE: MRI BRAIN WO CONTRAST, DATE/TIME OF EXAM: 12/09/2021 10:21PM, LOCATION [facility] INDICATION: I63.9: Cerebrovascular accident (CVA), unspecified mechanism (CMS/HCC) ADDITIONAL CLINICAL INFORMATION: Ordering Provider Reason For Exam: Stroke COMPARISON: CT head 12/09/2021 TECHNIQUE: MRI of the brain was performed without contrast. FINDINGS: There is evolving acute extensive confluent infarct involving the right cerebral hemisphere predominantly right frontal lobe and right insula, temporal and parietal lobes and also extending into the basal gangliaand posterior limb of the internal capsule. There is susceptibility alongthe right M1 and the proximal M2 segments of the MCA suggesting thrombus.Tiny 3-4 foci of punctate susceptibility noted in the right temporal lobe,right frontal lobe could be secondary to petechial hemorrhages. Interval increased mass effect on the brainstem/midbrain. There is interval increased midline shift to the left now measuring 7 mm, increasedcompared to prior study. There is interval increased effacement of the rightlateral ventricle, third ventricle compared to prior study. Susceptibility fociin the bilateral basal ganglia regions could be secondary to calcifications/mineralization Scattered foci of restricted diffusion noted along the cortical and subcortical regions of the right occipital lobe also could be secondaryto acute infarcts. Prominent vasculature along the acute infarct noted on susceptibility imaging. Scattered FLAIR hyperintensity noted in the periventricular and subcortical white matter, nonspecific could besequelae of chronic ischemic small vessel disease. Cerebellar volume loss. The corpus callosum and sella appear normal. The posterior fossa, brainstem, and craniocervical junction otherwise appear normal. The visualized portions of the orbits, paranasal sinuses, and mastoids appear normal. Normal flow voids are demonstrated in the left carotid artery and basilar artery. No flow voids are noted in the right distal cervical, petrous, cavernous segment of the right ICA. Small flow void noted in the right ICA terminus. Nonvisualization of the right M1 and M2 segments of the right MCA consistent with known thrombus seen on priorCTA and susceptibility imaging. The calvarium and visualized cervical spine appear normal. IMPRESSION: 1. Evolving extensive right MCA territory infarct involving the right frontal parietal, insula and temporal lobes, right gangliocapsularregions. Thrombus noted in the M1 extending into the M2 segments of right MCA. 2. Minimal foci of susceptibility noted in the evolving infarctsuggesting petechial hemorrhages. 3. Interval increased mass effect from the acute infarct causing midline shift to about 7 mm to the left. Interval increased effacement of theright lateral and third ventricle. Increased mass effect on the on thebrainstem suggesting impending right-sided uncal herniation. These findings were discussed with the patient's care provider, by Dr. Nichol Vargas via telephone at 11:36 AM on 12/10/2021 with readback comprehension and verification. > Interpreting Provider: Nichol Vargas MD on 12/10/2021 11:38 AM Choco Granda MD MR ORDERABLES * BLOOD TYPE VERIFICATION (12/09/2021 8:41 AM CDT) ABO Rh O POS 12/09/2021 9:2 8 AM CDT [facility] LAB Blood Bank BLOOD SPECIMEN / Unknown Lab Venipuncture / Unknown 12/09/2021 8:41 AM CDT 12/09/2021 8:47 AM CDT Angélica [place] MD LAB - BLOOD BANK ORD ERABLES [facility] [address] [place] [address], [facility] [phone] * CT ANGIO BRAIN AND NECK (12/09/2021 7:45 AM CDT) Anatomical Region Laterality Modality Head Computed Tomogra phy 12/09/2021 7:39 AM CDT Impressions 12/09/2021 2:52 PM CDT IMPRESSION: 1.Acute large right middle cerebral artery infarct without hemorrhagic conversion. 2.Nonopacification of the right internal carotid artery from the origin to the origin of cavernous segment, age indeterminate, however could be acute given the faint distal collaterals.. There is extension of small filling defects into the right carotid bulb suggesting possible thrombosis. Opacification of the right cavernous segment with areas of kutu-dg-lalanaiv stenosis. Faint opacification of the right ICA terminus. 3.Complete nonopacification of the right middle cerebral artery and its distal branches with faint hyperdensity most likely secondary to hyperdense thrombus in the right M1 segment extending up to the bifurcation. Preliminary results were discussed with Dr. Edwards by Dr. Delaorsa/Dr. Nichol ZAMORA ??on 12/09/2021 at 7:45 AM, 2:46 PM. > Dictated by Corinne Delarosa MD (radiology ct technologist). I, Nichol Vargas MD have personally reviewed and interpreted this examination/study. > Interpreting Provider: Nichol Vargas MD on 12/09/2021 2:52 PM Narrative 12/09/2021 2:52 PM CDT PROCEDURE: ??CT ANGIO BRAIN AND NECK, DATE/TIME OF EXAM: ??12/09/2021 7:47 AM, LOCATION ??[facility] INDICATION: I63.9: Cerebrovascular accident (CVA), unspecified mechanism (CMS/HCC) ADDITIONAL CLINICAL INFORMATION: Ordering Provider Reason For Exam: ??Stroke COMPARISON: None. TECHNIQUE: CT angiography of the head and neck was obtained after the uneventful administration of 75 mL Isovue 370 intravenous contrast. Three dimensional postprocessing was performed by the technologist and sent to the workstation for review. FINDINGS: Non-angiographic findings: Redemonstrated findings consistent with acute large right middle cerebral artery infarct. No hemorrhagic conversion. No soft tissue abnormalities are identified in the neck. Mild to millimeter anterolisthesis of C4 on C5. Mild degenerative changes are seen. Multiple dental implants are noted. Angiographic findings: Evaluation of carotid stenosis by atherosclerotic changes is based on NASCET criteria. The visible aortic arch appears normal. The configuration of the brachiocephalic vessels is typical. The innominate artery and both subclavian arteries appear normal. The right common carotid artery as well as the right carotid bifurcation appear normal. There is abrupt filling defect noted at the proximal aspect of the right internal carotid artery with minimal extension of this filling defect into the right carotid bulb. (series 11, image 47). There is complete nonopacification of the cervical, petrous segments of the right ICA. Linear filling defect within the vessel lumen may represent thrombus. Minimal opacification noted in the petrous segment of the right ICA.. Reconstitution noted in the right the cavernous segment with areas of mild to moderate stenosis. There is atherosclerotic disease of the left carotid bifurcation and origin of the left internal carotid artery with without significant stenosis. The left common and internal carotid arteries otherwise appear normal. The cervical vertebral arteries appear normal. The left vertebral artery is dominant. The distal left internal carotid artery appears normal. The right ICA terminus shows minimal opacification most likely from distal reconstitution from the collaterals. Faint hyperdensity along the right proximal MCA extending up to the bifurcation could be secondary to minimal opacification from the collaterals and presence of hyperdense thrombus. This hyperdensity tapers off in the region of the right sylvian fissure, after which there is complete nonopacification of the right middle cerebral artery and its branches with no distal reconstitution. The left middle cerebral artery appears normal. The bilateral anterior cerebral arteries receive blood flow from the left internal carotid artery. Right nondominant distal vertebral artery terminates as posterior inferior cerebellar artery. The basilar artery and posterior cerebral arteries appear normal. origins of the bilateral high climber. Small caliber basilar artery without evidence of stenosis or occlusion No aneurysms are identified. Procedure Note Nichol Vargas MD - 12/09/2021 PROCEDURE: CT ANGIO BRAIN AND NECK, DATE/TIME OF EXAM: 12/09/2021 7:47AM, LOCATION [facility] INDICATION: I63.9: Cerebrovascular accident (CVA), unspecified mechanism ([facility]) ADDITIONAL CLINICAL INFORMATION: Ordering Provider Reason For Exam: Stroke COMPARISON: None. TECHNIQUE: CT angiography of the head and neck was obtained after the uneventful administration of 75 mL Isovue 370 intravenous contrast.Three dimensional postprocessing was performed by the technologist and sent to the workstation for review. FINDINGS: Non-angiographic findings: Redemonstrated findings consistent with acute large right middlecerebral artery infarct. No hemorrhagic conversion. No soft tissue abnormalities are identified in the neck. Mild tomillimeter anterolisthesis of C4 on C5. Mild degenerative changes are seen.Multiple dental implants are noted. Angiographic findings: Evaluation of carotid stenosis by atherosclerotic changes is based on NASCET criteria. The visible aortic arch appears normal. The configuration of the brachiocephalic vessels is typical. The innominate artery and both subclavian arteries appear normal. The right common carotid artery aswell as the right carotid bifurcation appear normal. There is abrupt filling defect noted at the proximal aspect of the right internal carotid artery with minimal extension of this filling defect into the right carotidbulb. (series 11, image 47). There is complete nonopacification of thecervical, petrous segments of the right ICA. Linear filling defect within thevessel lumen may represent thrombus. Minimal opacification noted in the petrous segment of the right ICA.. Reconstitution noted in the right the cavernous segment with areas ofmild to moderate stenosis. There is atherosclerotic disease of the leftcarotid bifurcation and origin of the left internal carotid artery with without significant stenosis. The left common and internal carotid arteries otherwise appear normal. The cervical vertebral arteries appear normal.The left vertebral artery is dominant. The distal left internal carotid artery appears normal. The right ICA terminus shows minimal opacification most likely from distalreconstitution from the collaterals. Faint hyperdensity along the right proximal MCA extending up to the bifurcation could be secondary to minimalopacification from the collaterals and presence of hyperdense thrombus. Thishyperdensity tapers off in the region of the right sylvian fissure, after which thereis complete nonopacification of the right middle cerebral artery and its branches with no distal reconstitution. The left middle cerebral artery appears normal. The bilateral anterior cerebral arteries receive bloodflow from the left internal carotid artery. Right nondominant distalvertebral artery terminates as posterior inferior cerebellar artery. The basilar artery and posterior cerebral arteries appear normal. origins ofthe bilateral high climber. Small caliber basilar artery without evidence ofstenosis or occlusion No aneurysms are identified. IMPRESSION: 1.Acute large right middle cerebral artery infarct without hemorrhagic conversion. 2.Nonopacification of the right internal carotid artery from the originto the origin of cavernous segment, age indeterminate, however could beacute given the faint distal collaterals.. There is extension of small filling defects into the right carotid bulb suggesting possible thrombosis. Opacification of the right cavernous segment with areas [id number] stenosis. Faint opacification of the right ICA terminus. 3.Complete nonopacification of the right middle cerebral artery and its distal branches with faint hyperdensity most likely secondary tohyperdense thrombus in the right M1 segment extending up to the bifurcation. Preliminary results were discussed with Dr. Edwards by Dr. Delarosa/Dr. Nichol CANTRELLBS on 12/09/2021 at 7:45 AM, 2:46 PM. > Dictated by Corinne Delarosa MD (radiology ct technologist). I, Nichol Vargas MD have personally reviewed and interpreted this examination/study. > Interpreting Provider: Nichol Vargas MD on 12/09/2021 2:52 PM [address] Granda MD CT ORDERABLES * TROPONIN I (12/09/2021 7:42 AM CDT) Troponin I <0.010 <0.032 ng/mL 12/09/2021 8:26 AM CDT [facility] Blood BLOOD SPECIMEN / Unknown Venipuncture / Unknown 12/09/2021 7:42 AM CDT 12/09/2021 7:49 AM CDT Trey Littlejohn MD LAB - CHEMISTRY ZO [facility] Organization Address City/State/ZIP Co de Phone Number [facility] [address] [place] [id number], [facility] [phone] * HEMOGLOBIN A1C (12/09/2021 7:42 AM CDT) Hemoglobin A1c 5.3 <=5.6 % 12/09/2021 11:52 AM CDT [facility] Estimated Average Glucose 105 mg/dL 12/09/2021 11:52 AM CDT [facility] Comment: HbA1c Interpretation: Normal : < 5.7% Pre-diabetes: 5.7-6.4% Diabetes: Equal to or greater than 6.5% Test results diagnostic of diabetes should be repeated for confirmation. Treatment target values recommended by ADA and other clinical organizations should be used to evaluate metabolic control in patients. Reference: [place] [employer], Standards of Care in Diabetes -2020 In patients 70 years and older consider HbA1c target range of 7.0-7.5% (Reference: Charles Martinez et al. JAMDA. 2012) The Sebia assay for the measurement of HbA1c is a National Glycohemoglobin Standardization Program (NGSP) certified method. Blood BLOOD SPECIMEN / Unknown Venipuncture / Unknown 12/09/2021 7:42 AM CDT 12/09/2021 11:52 AM CDT Choco Granda MD LAB - CHEMISTRY ORD ERABLES [facility] [address] [place] [address], [facility] [phone] * (ABNORMAL) LIPID PROFILE (12/09/2021 7:42 AM CDT) [facility] Cholesterol Total 172 <200 mg/dL 12/09/2021 10:32 AM CDT [facility] HDL 53 >40 mg/dL 12/09/2021 10:32 AM [facility] Comment: ATP III Classification of HDL Cholesterol: ? <40 mg/dL: ??Considered a major risk factor. ? >60 mg/dL: ??Considered a negative risk factor. ? LDL Calculated 106(H) <100 mg/dL 12/09/2021 10:32 AM [facility] Comment: ATP III Classification of LDL Cholesterol: ?<100 mg/dL: ??Optimal ? 100 - 129 mg/dL: ??Near Optimal/Above Optimal ? 130 - 159 mg/dL: ??Borderline High ? 160 - 189 mg/dL: ??High ?>190 mg/dL: ??Very High ? Triglycerides 63 <150 mg/dL 12/09/2021 10:32 AM [facility] Comment: ATP III Classification of Triglycerides: ?<150 mg/dL: ??Normal ? 150 - 199 mg/dL: ??Borderline High ? 200 - 400 mg/dL: ??High ?>500 mg/dL: ??Very High Blood BLOOD SPECIMEN / Unknown Venipuncture / Unknown 12/09/2021 7:42 AM CDT 12/09/2021 10:20 AM CDT Choco Granda MD LAB - CHEMISTRY ORD ERABLES [facility] [address] [place] [address], [place] [phone] * INR WHOLE BLOOD - POINT OF CARE (IP) STROKE (12/09/2021 7:26 AM CDT) INR 1.0 0.9 - 1.2 12/09/2021 7:27 AM CDT [facility] Device [id number] 12/09/2021 7:27 AM CDT [facility] Property Maintenance Supervisor ID [id number] 12/09/2021 7:27 AM CDT [facility] Blood BLOOD SPECIMEN / Unknown 12/09/2021 7:26 AM CDT 12/09/2021 7:27 AM CDT Provider Unknown LAB - POINT OF CARE ORDERABLES Performing Organization Address City/[facility]/ZIP Co de Phone Number [facility] [address] [place] [address], [place] [phone] * CREATININE - POCT INTERFACED (12/09/2021 7:26 AM CDT) Creatinine POCT 0.73 0.30 - 1.30 mg/dL 12/09/2021 7:29 AM CDT [facility] eGFR >90 >90 mL/min/1.7 3 m2 12/09/2021 7:29 AM CDT [facility] Blood BLOOD SPECIMEN / Unknown 12/09/2021 7:26 AM CDT 12/09/2021 7:28 AM CDT Provider Unknown LAB - POINT OF CARE ORDERABLES [facility] [address] [place] [address], [place] [phone] * CT BRAIN STROKE (12/09/2021 7:25 AM CDT) Anatomical Region Laterality Modality Head Computed Tomogra phy 12/09/2021 7:27 AM CDT Impressions 12/09/2021 2:21 PM CDT IMPRESSION: Large area of hypoattenuation involving the right MCA territory and dense right MCA sign, consistent with acute right MCA territory infarct. There is local mass effect with effacement of the sulci and the mild mass effect on the left lateral ventricle. No midline shift.. No hemorrhagic conversion. Results of this exam were verbally discussed with Dr. Spivey on 12/09/2021 7:27 AM for a Critical Stroke Protocol. Report dictated by Corinne Delarosa MD (radiology ct technologist). I, Nichol Vargas MD have personally reviewed and interpreted this examination/study. > Interpreting Provider: Nichol Vargas MD on 12/09/2021 2:21 PM Narrative 12/09/2021 2:21 PM CDT PROCEDURE: ??CT BRAIN STROKE, DATE/TIME OF EXAM: ??12/09/2021 7:26 AM, LOCATION ??[facility] INDICATION: I63.9: Cerebrovascular accident (CVA), unspecified mechanism (CMS/HCC) ADDITIONAL CLINICAL INFORMATION: Ordering Provider Reason For Exam: ??Stroke Additional: ??61-year-old male presenting with left-sided weakness. COMPARISON: None. TECHNIQUE: CT of the head was performed without contrast according to standard protocol. FINDINGS: Large area of hypoattenuation involving the right MCA territory with loss of tapia-white matter differentiation, involving the right frontal parietal lobes, temporal lobes and portions of right basal ganglia and the internal capsule consistent with a right MCA territory infarct. Dense right MCA sign is noted. There is mild mass effect with diffuse sulcal effacement of the right cerebral hemisphere. Mild effacement of the right lateral ventricle. No hemorrhagic conversion. No midline shift noted. Prominent extra axial space/arachnoid cyst along the left cerebellar hemisphere. Effacement of the right lateral aspect of the suprasellar cistern The basilar cisterns are otherwise patent. . There is vascular calcification of the carotid siphons. No acute calvarial fracture is identified. The orbits appear normal. There is mild paranasal sinus disease. The mastoid air cells are clear. No soft tissue abnormality is identified. Procedure Note Nichol Vargas MD - 12/09/2021 PROCEDURE: CT BRAIN STROKE, DATE/TIME OF EXAM: 12/09/2021 7:26 AM, LOCATION [facility] INDICATION: I63.9: Cerebrovascular accident (CVA), unspecified mechanism (CMS/HCC) ADDITIONAL CLINICAL INFORMATION: Ordering Provider Reason For Exam: Stroke Additional: 61-year-old male presenting with left-sided weakness. COMPARISON: None. TECHNIQUE: CT of the head was performed without contrast according to standard protocol. FINDINGS: Large area of hypoattenuation involving the right MCA territory withloss of tapia-white matter differentiation, involving the right frontalparietal lobes, temporal lobes and portions of right basal ganglia and theinternal capsule consistent with a right MCA territory infarct. Dense right MCAsign is noted. There is mild mass effect with diffuse sulcal effacement ofthe right cerebral hemisphere. Mild effacement of the right lateralventricle. No hemorrhagic conversion. No midline shift noted. Prominent extra axial space/arachnoid cyst along the left cerebellar hemisphere. Effacement of the right lateral aspect of the suprasellar cistern The basilar cisterns are otherwise patent. . There is vascular calcificationof the carotid siphons. No acute calvarial fracture is identified. Theorbits appear normal. There is mild paranasal sinus disease. The mastoid aircells are clear. No soft tissue abnormality is identified. IMPRESSION: Large area of hypoattenuation involving the right MCA territory anddense right MCA sign, consistent with acute right MCA territory infarct. Thereis local mass effect with effacement of the sulci and the mild mass effecton the left lateral ventricle. No midline shift.. No hemorrhagic conversion. Results of this exam were verbally discussed with Dr. Spivey on 12/09/2021 7:27 AM for a Critical Stroke Protocol. Report dictated by Corinne Delarosa MD (radiology ct technologist). INichol MD have personally reviewed and interpreted this examination/study. > Interpreting Provider: Nichol Vargas MD on 12/09/2021 2:21 PM Choco Granda MD CT ORDERABLES Care Teams Director Treasurer Relationship Specialty Start Date End Date Gutierrez Richardson MD [address] [place] [address] [facility] - General 06/28/22 Gutierrez Richardson MD [address] [place] [address] 01/03/22
--- OUTSIDE RECORDS SUMMARY | 2024-04-03 03:38 | XMS_ITS | Referral Summary ---
Author Organization [facility] Address [address] [place] [address] Care Team Providers Care Bench Assembler Operator Name Role Phone Gutierrez Richardson MD Unavailable [phone] Gutierrez Richardson MD Primary Care Provider [phone] Source Comments [facility],non-owned Affiliates and Associated Physician Practices is amultiple site organization consisting of ambulatory clinics and hospital sitesin [place], [place], [place] and [place]. This disclosure is being madepursuant to the Care Everywhere program and may not contain all information available regarding this patient. Last updated 17.[facility] [employer] Allergies No known active allergies Medications * [...] fluticasone propionate (Flonase) 50 MCG/ACT nasal spray Williams 2 (two) sprays into each nostril as [...] and heating? Not hard at all 04/30/2022 [facility] [place] of Occupat ional Health - Occupational Stress [...] place to sleep or slept in a halfway (including now)? No 04/30/2022 Sex and Gender Information Value Date Recorded Sex Assigned at Male 09/10/2022 10:38 AM CDT Gender Identity Male 09/10/2022 10:38 AM CDT Sexual Orientation Straight 09/10/2022 10 :38 AM CDT Last Filed Vital Signs Vital Sign Reading Time Taken Comments Blood Pressure 118/70 05/03/2022 3:05 PM CHARGING CAR OPERATOR Pulse 92 05/03/2022 3:05 PM CHARGING CAR OPERATOR Temperature 36.9 ??C (98.4 ??F) 05/03/2022 3:05 PM CS T Respiratory Rate 16 05/03/2022 3:05 PM CHARGING CAR OPERATOR Oxygen Saturation 89% 05/03/2022 3:05 PM CHARGING CAR OPERATOR Inhaled Oxygen Concentration 30% 12/21/2021 8 :25 AM CDT Weight 91.9 kg (202 lb 8 oz) 04/30/2022 6:14 AM CHARGING CAR OPERATOR Height 175.3 cm (5' 9 ) 04/30/2022 6:14 AM CHARGING CAR OPERATOR Body Mass Index 29.9 04/30/2022 6:14 AM CHARGING CAR OPERATOR Functional Status Functional Status Response Date of Assess ment Is person deaf or have serious hearing difficult y? No 04/30/2022 Is person blind or have serious difficulty seein g? No 04/30/2022 Does person have serious dif ficulty walking/climbing stairs? Yes 04/30/2022 Does person have difficulty dressing/bathing? Ye s 04/30/2022 Does person have difficulty doing errands alone? Yes 04/30/2022 Cognitive Status Response Date of Assessm ent Does person have difficulty concentrating/remembering/making decisions? Yes 04/30/2022 Plan of Treatment Not on file Medical Devices Implanted Type Area Journeyman Lineman Device Identifier Shelf Expiration Date Model / Serial / Lot Precision Multiparameter Catheter Implanted:Qty: 1 on 12/10/2021 by Ken Fu MD at [facility] Catheters Left: Cranial 06/08/2024 [id number] / [id number] 2 / Description:[employer] ; CRANIAL BOLT cost per Cadence Graft Tissue Drgn + Bvn Clgn Mtrx 5x4in Implanted:Qty: 1 on 12/10/2021 by Ken Fu MD at [facility] Other (Type not listed) Right: Cranial [employer] 08/08/2024 [id number] / / [id number] Sys Crd Mntr Rvl Linq Ii - [id number] Implanted:Qty: 1 on 12/14/2021 by Shae Choi MD at [facility] Medtron Francis 09/25/2022 [id number] / [id number] / [id number] Screw 1.5mm 4mm Slf Drl Ax Stab Unv Implanted:Qty: 15 on 04/30/2022 by Ken Fu MD at [facility] Right: Cranial Mimi Craniomaxillofacial [id number] / / Plate 2x2 Hl Lopro Crnmxf .4mm Sm Bx Unv Implanted:Qty: 3 on 04/30/2022 by Ken Fu MD at [facility] Right: Cranial Watson Craniomaxillofacial [id number] 8 / / Plate 6 Hl Lopro Bar Crnmxf .4mm 2y Unv Implanted:Qty: 1 on 04/30/2022 by Ken Fu MD at [facility] Right: Cranial Watson Craniomaxillofacial [id number] 8 / / Explanted Type Area Journeyman Lineman Device Identifier Shelf Expiration Date Model / Serial / Lot Set Xtrn Drn 35cm 1.9mm 3-15cm Cath Inr Explanted:Qty: 1 on 04/30/2022 at [facility] [employer] [id number] / / Procedures Procedure Name Priority Date/Time Associated Diagnosis Comments BASIC METABOLIC PANEL (CALCIUM TOTAL) Routine 05/03/2022 3:33 AM CHARGING CAR OPERATOR History of cranioplasty from Last 3 Months or Most Recently Relevant to Health Maintenance Results * (ABNORMAL) BASIC METABOLIC PANEL (CALCIUM TOTAL) (05/03/2022 3:33 AM CHARGING CAR OPERATOR) BUN 14 7 - 26 mg/dL 05/03/2022 4:42 AM [facility] Creatinine 0.59(L) 0.71 - 1.16 mg/dL 05/03/2022 4:42 AM [facility] Sodium 140 136 - 145 mmol/L 05/03/2022 4:42 AM [facility] Potassium 4.3 3.5 - 4.5 mmol/L 05/03/2022 4:42 AM [facility] Comment:Confirmed by repeat analysis. Chloride 105 98 - 107 mmol/L 05/03/2022 4:42 AM [facility] Comment:Confirmed by repeat analysis. CO2 24 22 - 29 mmol/L 05/03/2022 4:42 AM [facility] Glucose 143(H) 70 - 115 mg/dL 05/03/2022 4:42 AM [facility] Calcium 9.0 8.4 - 10.2 mg/dL 05/03/2022 4:42 AM [facility] Anion Gap 15 8 - 18 05/03/2022 4:42 AM [facility] BUN/Creatinine Ratio 24(H) 7 - 23 05/03/2022 4:42 AM [facility] Osmolality Calculated 293 270 - 300 mOsm/kg 05/03/2022 4:42 AM [facility] eGFR by CKD-EPI >90 >=90 mL/min/1.7 3 m2 05/03/2022 4:42 AM [facility] Blood BLOOD SPECIMEN / Unknown Venipuncture / Unknown 05/03/2022 3:33 AM CHARGING CAR OPERATOR 05/03/2022 3:45 AM CHARGING CAR OPERATOR Ken Fu MD LAB - CHEMISTRY ZO [place] Organization Address City/State/ZIP Co de Phone Number [facility] [address] [place] [address], [facility] [phone] from Last 3 Months or Most Recently Relevant to Health Maintenance Insurance Payer Benefit Plan / Group Subscriber ID Effective Dates Phone Address Type R[place] KAUR [id number] 07/05/2020-Presen t [phone] [address] [place] [address] PPO ANTHEM BLUE CROSS TRADITIONAL 07/05/2020-Presen t [phone] [address] [place] [address] PPO ANTHEM BLUE CROSS TRADITIONAL 07/05/2020-Presen t [phone] [address] [place] [address] PPO ANTHEM BLUE CROSS TRADITIONAL 07/05/2020-Presen t [phone] [address] [place] [address] PPO ANTHEM BLUE CROSS TRADITIONAL [id number] 07/05/2020-Presen t [phone] [address] [place] [address] PPO ANTHEM BLUE CROSS TRADITIONAL 07/05/2020-Presen t [phone] [address] [place] [address] PPO ANTHEM BLUE CROSS TRADITIONAL 07/05/2020-Presen t [phone] [address] [place] [address] PPO ANTHEM BLUE CROSS TRADITIONAL 07/05/2020-Presen t [phone] [address] [place] [address] PPO ANTHEM BLUE CROSS TRADITIONAL 07/05/2020-Presen t [phone] [address] [place] [address] PPO ANTHEM BLUE CROSS TRADITIONAL 07/05/2020-Presen t [phone] [address] [place] [address] PPO ANTHEM BLUE CROSS TRADITIONAL 07/05/2020-Presen t [phone] [address] [place] [address] PPO ANTHEM BLUE CROSS TRADITIONAL 07/05/2020-Presen t [phone] [address] [place] [address] PPO ANTHEM BLUE CROSS TRADITIONAL 07/05/2020-Presen t [phone] [address] [place] [address] PPO ANTHEM BLUE CROSS TRADITIONAL 07/05/2020-Presen t [phone] [address] [place] [address] PPO ANTHEM BLUE CROSS TRADITIONAL 07/05/2020-Presen t [phone] [address] [place] [address] PPO ANTHEM BLUE CROSS TRADITIONAL 07/05/2020-Presen t [phone] [address] [place] [address] PPO ANTHEM BLUE CROSS TRADITIONAL 07/05/2020-Presen t [phone] [address] [place] [address] PPO ANTHEM BLUE CROSS TRADITIONAL 07/05/2020-Presen t [phone] [address] [place] [address] PPO ANTHEM BLUE CROSS TRADITIONAL 07/05/2020-Presen t [phone] [address] [place] [address] PPO ANTHEM BLUE CROSS TRADITIONAL 07/05/2020-Presen t [phone] [address] [place] [address] PPO ANTHEM BLUE CROSS TRADITIONAL 07/05/2020-Presen t [phone] [address] [place] [address] PPO ANTHEM BLUE CROSS TRADITIONAL 07/05/2020-Presen t [phone] [address] [place] [address] PPO ANTHEM BLUE CROSS TRADITIONAL 07/05/2020-Presen t [phone] [address] [place] [address] PPO ANTHEM BLUE CROSS TRADITIONAL 07/05/2020-Presen t [phone] [address] [place] [address] PPO ANTHEM BLUE CROSS TRADITIONAL 07/05/2020-Presen t [phone] [address] [place] [address] PPO ANTHEM BLUE CROSS TRADITIONAL 07/05/2020-Presen t [phone] [address] [place] [address] PPO ANTHEM BLUE CROSS TRADITIONAL 07/05/2020-Presen t [phone] [address] [place] [address] PPO ANTHEM BLUE CROSS TRADITIONAL 07/05/2020-Presen t [phone] [address] [place] [address] PPO ANTHEM BLUE CROSS TRADITIONAL 07/05/2020-Presen t [phone] [address] [place] [address] PPO ANTHEM BLUE CROSS TRADITIONAL 07/05/2020-Presen t [phone] [address] [place] [address] PPO ANTHEM BLUE CROSS TRADITIONAL 07/05/2020-Presen t [phone] [address] [place] [address] PPO ANTHEM BLUE CROSS TRADITIONAL 07/05/2020-Presen t [phone] [address] [place] [address] PPO ANTHEM BLUE CROSS TRADITIONAL [id number] 07/05/2020-Presen t [phone] [address] [place] [address] PPO ANTHEM BLUE CROSS TRADITIONAL [id number] 07/05/2020-Presen t [phone] [address] [place] [address] PPO ANTHEM BLUE CROSS TRADITIONAL [id number] 07/05/2020-Presen t [phone] [address] [place] [address] PPO ANTHEM BLUE CROSS TRADITIONAL [id number] 07/05/2020-Presen t [phone] [address] [place] [address] PPO ANTHEM BLUE CROSS TRADITIONAL [id number] 07/05/2020-Presen t [phone] [address] [place] [address] PPO ANTHEM BLUE CROSS TRADITIONAL [id number] 07/05/2020-Presen t [phone] [address] [place] [address] PPO ANTHEM BLUE CROSS TRADITIONAL [id number] 07/05/2020-Presen t [phone] [address] [place] [address] PPO ANTHEM BLUE CROSS TRADITIONAL [id number] 07/05/2020-Presen t [phone] [address] [place] [address] PPO ANTHEM BLUE CROSS TRADITIONAL [id number] 07/05/2020-Presen t [address] [place] [address] PPO ANTHEM BLUE CROSS TRADITIONAL [id number] 07/05/2020-Presen t [address] [place] [address] PPO ANTHEM BLUE CROSS TRADITIONAL [id number] 07/05/2020-Presen t [address] [place] [address] PPO ANTHEM BLUE CROSS TRADITIONAL [id number] 07/05/2020-Presen t [address] [place] [address] PPO ANTHEM ANTHEM BLUE ACCESS [id number] 03/11/2019-Present [address] [place] [address] PPO ANTHEM BLUE CROSS TRADITIONAL 07/05/2020-Presen t [address] [place] [address] PPO ANTHEM BLUE CROSS TRADITIONAL 07/05/2020-Presen t [address] [place] [address] PPO ANTHEM BLUE CROSS TRADITIONAL 07/05/2020-Presen t [address] [place] [address] PPO ANTHEM BLUE CROSS TRADITIONAL 07/05/2020-Presen t [address] [place] [address] PPO ANTHEM BLUE CROSS TRADITIONAL 07/05/2020-Presen t [address] [place] [address] PPO ANTHEM BLUE CROSS TRADITIONAL 07/05/2020-Presen t [address] [place] [address] PPO ANTHEM BLUE CROSS TRADITIONAL 07/05/2020-Presen t [address] [place] [address] PPO ANTHEM BLUE CROSS TRADITIONAL 07/05/2020-Presen t [address] [place] [address] PPO ANTHEM BLUE CROSS TRADITIONAL 07/05/2020-Presen t [address] [place] [address] PPO ANTHEM BLUE CROSS TRADITIONAL 07/05/2020-Presen t [address] [place] [address] PPO ANTHEM BLUE CROSS TRADITIONAL 07/05/2020-Presen t [address] [place] [address] PPO Advance Directives * Full Code (Latest [...] No External or Internal Pacemaker Care Teams Bench Assembler Operator Relationship Specialty Start Date End Date Gutierrez Richardson MD [address] [place] [address] PCP - General 06/28/22 Gutierrez Richardson MD [address] [place] [address] 01/03/22
--- OUTSIDE RECORDS SUMMARY | 2024-04-03 03:39 | XMS_ITS | Clinical Summary ---
Author Organization [facility] Address [address] [place] [address] Care Team Providers Care Computer Engineer Name Role Phone Rosana Castro Primary Care Provider [phone] Allergies No known active allergies Medications atorvastatin (LIPITOR) 40 mg tablet Take 1 tablet (40 mg total) by mouth nightly 2 Active albuterol HFA (PROVENTIL HFA,VENTOLIN HFA,PROAIR HFA) 90 mcg/actuation inhaler Inhale 2 puffs every 6 (six) hours as needed [address] (CYMBALTA) 30 mg capsule Take 1 capsule (30 mg total) by mouth daily Active fluticasone propionate (FLONASE) 50 mcg/actuation nasal spray Administer 1 spray into each nostril daily Active gabapentin (NEURONTIN) 100 mg capsule Take 1 capsule (100 mg total) by mouth 2 (two) times a day Active lidocaine-silic one, adhesive 5 % combo packIndications :As Needed Apply topically daily Active lisinopriL (PRINIVIL,ZESTR IL) 20 mg tablet Take 1 tablet (20 mg total) by mouth daily Active propranoloL (INDERAL) 10 mg tablet Take 1 tablet (10 mg total) by mouth 3 (three) times a day Active traZODone (DESYREL) 50 mg tablet Take 1 tablet (50 mg total) by mouth nightly Active aspirin 81 mg enteric coated tablet Take 1 tablet (81 mg total) by mouth daily Active FLUoxetine (PROzac) 20 mg tablet Take 1 tablet (20 mg total) by mouth daily Active atenoloL (TENORMIN) 25 mg tablet Take 1 tablet (25 mg total) by mouth daily 4 Active chlorhexidine (PERIDEX) 0.12 % solution RINSE AND SPIT BY MOUTH TWICE DAILY FOR 30 SECONDS 4 Active metFORMIN (GLUCOPHAGE) 500 mg tablet Take 1 tablet (500 mg total) by mouth 2 (two) times a day 3 Active modafiniL (PROVIGIL) 200 mg tablet TAKE 1 TABLET BY MOUTH EVERY DAY 30 tablet 1 4 Active Active Problems Problem Noted Date Diagnosed Date MIRI (acute ischemic optic neuropathy)magda 04/10/2023 Assessment & Plan (04/11/2023 7:54 AM FLOOR RENOVATOR): From previous notes and patients history Educated and reassured patient of findings Large HVF loss OU, patient educated will not pass drivers test based on todays results Educated on natural course of vision after AION/strokes Patient would like to confirm with eid VF Visual field defect 02/25/2023 Assessment & Plan (04/10/2023 3:52 PM FLOOR RENOVATOR): 2/2 previously known stroke OS > OD Type 2 diabetes mellitus without complication (C MS/HCC) 10/29/2022 Cough 10/26/2022 Urinary incontinence 10/11/2022 Mixed anxiety and depressive disorder 05/30/2022 Neuropathy 05/30/2022 Cognitive communication deficit 02/16/2022 Aphasia 02/16/2022 COVID-19 02/10/2022 Dysphagia following cerebral infarction 01/19/20 22 Other pneumonia, unspecified organism 01/18/2022 Other sequelae of cerebral infarction 01/18/2022 Chronic obstructive pulmonary disease, unspecifi ed 01/13/2022 Hypertensive heart disease without heart failure 01/13/2022 Other abnormalities of gait and mobility 022 Hyperlipidemia, unspecified 01/13/2022 Debility 12/22/2021 Acute respiratory failure 12/11/2021 Brain herniation (CMS/HCC) 12/11/2021 Leukocytosis 12/11/2021 Nihss score 11 12/11/2021 Acute ischemic right MCA stroke 12/09/2021 Tobacco use disorder 12/09/2021 Primary hypertension 12/09/2021 Surgical History Surgery Date Site/Laterality Comments UMBILICAL HERNIA REPAIR Medical History Medical History Date Comments Hypertension Insomnia Sleep disorder Dyspnea Family History Medical History Relation Name Comments malignant tumor of pharynx Father Relation Name Status Comments Father Social History Tobacco Use Types Packs/Day Years Used Date Smoking Tobacco: Former Cigarettes Smokeless Tobacco: Never Tobacco Cessation:Counseling Given: Not Answered AUDIT-C Answer Date Recorded Frequency of Alcohol Consumption Not on file 03/25/2023 Q2: How many drinks containi ng alcohol do you have on a typical day when you are drinking? Patient does not drink Frequency of Binge Drinking Not on file 03/11 Sex and Gender Information Value Date Recorded Sex Assigned at Not on file Legal Sex Male 8:34 AM FLOOR RENOVATOR Gender Identity Not on file Sexual Orientation Not on file Obstetrics History Last Filed Vital Signs Vital Sign Reading Time Taken Comments Blood Pressure 110/84 03/25/2023 10:01 AM FLOOR RENOVATOR Pulse 67 03/25/2023 10:01 AM FLOOR RENOVATOR Temperature - - Respiratory Rate 16 03/25/2023 10:01 AM FLOOR RENOVATOR Oxygen Saturation 97% 03/25/2023 10:01 AM FLOOR RENOVATOR Inhaled Oxygen Concentration - - Weight 108.9 kg (240 lb) 03/25/2023 10:01 AM FLOOR RENOVATOR Height 176.5 cm (5' 9.5 ) 03/25/2023 10:01 AM CS T Body Mass Index 34.93 03/25/2023 10:01 AM FLOOR RENOVATOR Plan of Treatment Health Maintenance Due Date Last Done Comments Albumin Creatinine Ratio, Urine 1958 Colon Cancer Screening-Colonoscopy 1958 Depression Screening 1958 Fall Risk Assessment 1958 Hemoglobin A1C 1958 Hepatitis C Screening 1958 Prostate Cancer Screening-PSA 1958 Foot Exam 1958 Pneumococcal vaccine 65+ (1 of 2 - PCV) 1964 DTaP/Tdap/Td Vaccine (1 - Tdap) 1969 Hepatitis B Screening 1976 Zoster Vaccine (1 of 2) 2008 Lipid Panel 12/09/2022 12/09/2021 Abdominal Aortic Aneurysm (A AA) Screen 2023 Well Visit 65+ 2023 eGFR 05/26/2023 05/25/2022, 05/09, 05/11/2022, Additional history exists Covid-19 Vaccine (2023-2 5 season) 2023 02/14/2021, 05/21/2020, 04/23/2020 Influenza Vaccine (#1) 2023 04/03/2023, 2020 Dilated Eye Exam 04/10/2024 04/10/2023 Procedures Procedure Name Priority Date/Time Associated Diagnosis Comments EGFR Routine Gen Lab 05/25/2022 11:08 AM CDT from Last 3 Months or Most Recently Relevant to Health Maintenance Results * eGFR (05/25/2022 11:08 AM CDT) eGFR >90 90 - 130 mL/min/1. 73 m2 [facility] Comment: Interpretive Data Reference Interval Normal ?>/= 90 mL/min/1.73m2 Mildly decreased* ? 60 - 89 mL/min/1.73m2 Mildly to moderately decreased ?45 - 59 mL/min/1.73m2 Moderately to severely decreased ??30 - 44 mL/min/1.73m2 Severely decreased ?15 - 29 mL/min/1.73m2 Kidney Failure ?< 15 ??mL/min/1.73m2 *Relative to young adult level Estimated glomerular filtration rate is determined by the 2020 CKD-EPI equation recommended by the National Kidney Foundation (A Unifying Approach to GFR Estimation: Recommendations of the NKF-ASK Task Force on Reassessing the Inclusion of Race in Diagnosing Kidney Disease, JASN 2020). The CKD-EPI equation should not be used for patients with unstable renal function and has not been validated in children and those over 70. Current interpretive data was last reviewed 2021. Blood 05/25/2022 11:0 8 AM CDT 05/25/2022 11:38 AM CDT us Alphonso Donahue MD LAB BLOOD ORDERABLES Final Re sult [facility] Department [place] [address] from Last 3 Months or Most Recently Relevant to Health Maintenance Insurance MEDICARE [facility] MEDICARE AARP Care Teams Computer Engineer Relationship Specialty Start Date End Date Rosana Castro PA [address] [place] [address] PCP - General 05/28/22
--- OUTSIDE RECORDS SUMMARY | 2024-04-03 03:39 | XMS_ITS | Referral Summary ---
Author Organization [facility] Address [address] [place] [address] Care Team Providers Care Lab Intern Name Role Phone Rosana Castro Primary Care Provider [phone] Allergies No known active allergies Medications atorvastatin [...] 04/10/2023 Assessment & Plan (04/11/2023 7:54 AM PROMOTIONS EXECUTIVE): From previous notes and patients history Educated and reassured patient of findings Large HVF loss OU, patient educated will not pass drivers test based on todays results Educated on natural course of vision after AION/strokes Patient would like to confirm with eid VF Visual field defect 02/25/2023 Assessment & Plan (04/10/2023 3:52 PM PROMOTIONS EXECUTIVE): 2/2 previously known stroke OS > OD [...] Tobacco use disorder 12/09/2021 Primary hypertension 12/09/2021 Social History Tobacco Use Types Packs/Day [...] on file Legal Sex Male 8:34 AM PROMOTIONS EXECUTIVE Gender Identity Not on file Sexual Orientation Not on file Last Filed Vital Signs Vital Sign Reading Time Taken Comments Blood Pressure 110/84 03/25/2023 10:01 AM PROMOTIONS EXECUTIVE Pulse 67 03/25/2023 10:01 AM PROMOTIONS EXECUTIVE Temperature - - Respiratory Rate 16 03/25/2023 10:01 AM PROMOTIONS EXECUTIVE Oxygen Saturation 97% 03/25/2023 10:01 AM PROMOTIONS EXECUTIVE Inhaled Oxygen Concentration - - Weight 108.9 kg (240 lb) 03/25/2023 10:01 AM PROMOTIONS EXECUTIVE Height 176.5 cm (5' 9.5 ) 03/25/2023 10:01 AM CS T Body Mass Index 34.93 03/25/2023 10:01 AM PROMOTIONS EXECUTIVE Plan of Treatment Not on file Procedures Procedure Name Priority Date/Time Associated Diagnosis Comments EGFR Routine Gen Lab 05/25/2022 11:08 AM CDT from Last 3 Months or Most Recently Relevant to Health Maintenance Results * eGFR (05/25/2022 11:08 AM CDT) eGFR >90 90 - 130 mL/min/1. [address] [facility] Comment: Interpretive Data Reference Interval Normal ?>/= [...] MD LAB BLOOD ORDERABLES Final Re sult [place] [facility] One [facility] [place] [address] from Last 3 Months or Most Recently Relevant to Health Maintenance Insurance MEDICARE [facility] MEDICARE [facility] Member Subscriber Plan / Payer (Ef fective 2023-Present) Name:MichaelSkyler mares Relation to Subscriber:Self Name:MichaelchelseanemoSkyler Payer ID:[id number] Group ID:Not on file Type:COMMERCIAL Address: [facility] [address] [id number] Care Teams Lab Intern Relationship Specialty Start Date End Date Rosana Castro PA [address] [place] [address] PCP - General 05/28/22
--- OUTSIDE RECORDS SUMMARY | 2024-04-03 03:39 | XMS_ITS | Clinical Summary ---
Author Organization [employer] [facility] Address [address] [place] [address] Phone Care Team Providers Care Solar Designer Name Role Phone Amber Low MD Primary Care Provider + Encounters Date Type Department Care Team Description 03/24/2024 External Device Data [facility] Provider, Abstract 02/11/2024 External Device Data [facility] Provider, Abstract from Last 3 Months Social History Tobacco Use Types Packs/Day Years Used Date Smoking Tobacco: Never Assessed Feeling Safe Answer Date Recorded Are you in a relationship wi th someone who hurts you emotionally and/or physically? No 05/15/2023 Sex and Gender Information Value Date Recorded Sex Assigned at Not on file Legal Sex Male 4:08 PM ETCHER APPRENTICE PHOTOENGRAVING Gender Identity Not on file Sexual Orientation Not on file Plan of Treatment Health Maintenance Due Date Last Done Comments DIABETES ANNUAL FOOT EXAM 1976 DIABETES MICROALBUMIN ANNUAL SCREEN 1976 LDL CHOLESTEROL ANNUAL 1976 DTAP/TDAP/TD VACCINES (1 - Tdap) 1977 PNEUMOCOCCAL VACCINE 65+ YEARS (1 of 2 - PCV) 03/31/18 78 COLORECTAL SCREENING 2003 Colorectal Cancer Screening 2003 FIT-DNA Q 3 years 2003 FIT/FOBT Q 1 year 2003 Flex Sig/CT Colonography Q 5 years 2003 ZOSTER VACCINE (1 of 2) 2008 RSV VACCINE (60+ or ) (1 - Risk 60-74 years 1-dose series) 2018 DIABETES HBA1C Q 6 MONTHS 06/09/2022 12/09/2021 INFLUENZA VACCINE (#1) 2023 04/03/2023 DIABETES ANNUAL RETINAL EXAM 04/10/2024 04/10/2023 Insurance MEDICARE PART A AND B [facility] [id number] [place] [address] Care Teams Solar Designer Relationship Specialty Start Date End Date Amber Low MD [address] [place] [address] PCP - General Family Practice 05/15/23
--- OUTSIDE RECORDS SUMMARY | 2024-04-03 03:39 | XMS_ITS | Clinical Summary ---
Author Organization [facility] Address [address] [place] [address] Care Team Providers Care Panel Edge Painter Name Role Phone Unavailable Primary Care Provider Unavailabl e Allergies No known active allergies Medications acetaminophen (TYLENOL) 325 MG tablet Take 2 tablets (650 mg total) by mouth every 6 (six) hours as needed for moderate pain, mild pain or Temp > or equal to 101F (38.3C). 0 2 Active aspirin 81 MG chewable tabletIndicatio ns:Ischemic Stroke Chew 1 tablet (81 mg total) daily Indications: Stroke Due To Limited Blood Flow. 30 tablet 2 Active atorvastatin (LIPITOR) 80 MG tablet Take 1 tablet (80 mg total) by mouth nightly. 30 tablet 2 Active calcium carbonate (TUMS) 500 MG chewable tablet Chew 1 tablet (500 mg total) as needed in the morning and 1 tablet (500 mg total) as needed in the evening for heartburn. 0 2 Active melatonin tablet Take 1 tablet (3 mg total) by mouth nightly as needed for sleep. 0 2 Active polyethylene glycol (MIRALAX) 17 g packet Take 17 g by mouth daily. 10 each 2 Active propranolol (INDERAL) 10 MG tablet Administer 1 tablet (10 mg total) per tube 2 (two) times a day. 60 tablet 2 Active Active Problems Problem Noted Date Diagnosed Date Cerebrovascular accident 12/23/2021 Dysphagia 12/23/2021 Hypertension 12/23/2021 Debility 12/22/2021 Immunizations Name Administration Dates Next Due Pfizer SARS-CoV-2 Vaccination 12/22/2021 (Deferred: Patient not in facility during flu season),11/05/2021(Deferred: Not available - [facility] does not provide COVID Vaccine- pt has had 2) Social History Tobacco Use Types Packs/Day Years Used Date Smoking Tobacco: Every Day Cigarettes 1 15 Tobacco Cessation:Ready to Q uit: No; Counseling Given: No Comments:Pt - pt has smoked forever . Alcohol Use Standard Drinks/Week Comments Yes 3 (1 standard drink = 0.6 oz pure alcohol) Per , pt will drink daily either 1-6 cans of beer or a couple 32oz of hard liquor. Sex and Gender Information Value Date Recorded Sex Assigned at Not on file Legal Sex Male 2:26 PM EDT Gender Identity Not on file Sexual Orientation Not on file Last Filed Vital Signs Vital Sign Reading Time Taken Comments Blood Pressure 110/67 01/13/2022 8:05 AM CDT Pulse 56 01/13/2022 8:05 AM CDT Temperature 36.6 ??C (97.8 ??F) 01/13/2022 8:05 AM CD T Respiratory Rate 18 01/13/2022 8:05 AM CDT Oxygen Saturation 94% 01/13/2022 8:05 AM CDT Inhaled Oxygen Concentration - - Weight 87.1 kg (192 lb) 01/11/2022 4:00 AM CDT Height 176.5 cm (5' 9.5 ) 01/11/2022 4:00 AM CDT Body Mass Index 27.95 01/11/2022 4:00 AM CDT Plan of Treatment Health Maintenance Due Date Last Done Comments CT Colonography 1958 Colonoscopy 1958 Colorectal Cancer Screening 1958 FIT-DNA (Cologuard) 1958 FIT 1958 FOBT 1958 Sigmoidoscopy 1958 Annual Visit Topic 1959 MMR Vaccines (1 of 1 - Stand laverne series) 1959 DTaP/Tdap/Td Vaccines (1 - Tdap) 1965 Pneumococcal Vaccine: 65+ Ye ars (1 of 4 - PCV) 2023 HIB Vaccines Aged Out No longer eligi ble based on patient's age to complete this topic HPV Vaccines Aged Out No longer eligi ble based on patient's age to complete this topic Hepatitis A Vaccines Aged Out No long er eligible based on patient's age to complete this topic Hepatitis B Vaccines Aged Out No long er eligible based on patient's age to complete this topic IPV Vaccines Aged Out No longer eligi ble based on patient's age to complete this topic Meningococcal Vaccine Aged Out No andrei jennifer eligible based on patient's age to complete this topic Advance Directives * DNR (Latest Code Status on File) Date Activated Date Inactivated Comments 12/23/2021 5:00 PM 01/13/2022 3:31 PM Question Answer Comments I have discussed this order with the patient or his/her surrogate and have received informed consent. Yes * Full Resuscitation Date Activated Date Inactivated Comments 12/22/2021 6:42 PM 12/23/2021 5:00 PM * DNR Date Activated Date Inactivated Comments 12/22/2021 6:37 PM 12/22/2021 6:42 PM Question Answer Comments I have discussed this order with the patient or his/her surrogate and have received informed consent. Yes
--- OUTSIDE RECORDS SUMMARY | 2024-04-03 03:39 | XMS_ITS | Data Portability ---
Author Organization [place] - [facility], Main Office Address [address] [place] [address] Assessment Encounter Date Assessment Date Assessment LastModified by Organization Details LastModified Time 07/09/2023 07/09/2023 Assessment: Nicotine smoke: 1 ppd 1988-present (quit 1 year in between) = 34 pack years Cough Right CVA with left hemiparesis L>R atelectasis Dysphagia Plan: The following were reviewed and explained to the patient: primary care/referral note Chest 2 views 12/15/22 LLL atelectasis Chest 2 views 04/12/23 L>R basilar atelectasis Nicotine cessation counseling provided for 4 minutes. [place] for quitting nicotine include getting ready, getting support and encouragement, learning new skills and behaviors and being prepared to handle slips. Tips for dealing with cravings provided. Prevention of subsequent illnesses from nicotine addiction discussed. Comorbidities include but are not limited to hypertension, cerebrovascular disease, coronary heart disease, congestive heart failure, hyperlipidemia, COPD/asthma, peptic ulcer disease, esophagitis/gastri tis, and osteoporosis. Therapy options offered include: Quitting by total abstinence Receiving nicotine replacement therapy Undergoing hypnosis Filling a bupropion or varenicline prescription Enrolling in Quit For Life program Registering at [email or web address] Making a call to 7-854-CEUT-NOW ( ). A strong, clear, personalized message was given to the patient to quit smoking. The patient was urged to set a quit date. We discussed patient's barriers to quitting and I will be of assistance when patient is ready to quit. I encouraged patient to inform friends and family of plans to quit with a request for support. I encouraged the patient to remove all cigarettes from the environment. We reviewed any previous quit attempts and lessons learned from them. I encouraged total abstinence from smoking and advised the patient that drinking alcohol and/or associating with other smokers are associated with failure or relapse. Patient can enroll in [facility]'s smoking cessation class through Alyson Turner RN at . Enrollment is free and classes are held every saturday of the month from 1:30 pm to 2:30 pm at the conference room next to the cafeteria on the ground floor. Incentive spirometer x 5 minutes every 2 hours while awake to reverse and prevent further atelectasis. Cough/Dyspnea workup will be done as follows: Respiratory allergen panel for [facility] Serum IgE Serum total IgG, IgG1, IgG2, IgG3, IgG4 Xkscg-2-oocqrkdavb n phenotype and level TB stimulated gamma interferon B-type natriuretic peptide (BNP) Eosinophil count Complete pulmonary function testing (PFT) High resolution chest CT Modified barium swallow Adherence to therapy is advocated. Nonadherence may lead to treatment failure, further progression of the condition, and other complications. Hospitals admissions are often the result of individuals not taking prescription medications accurately. Alternatively, greater adherence to medication regimens have shown to lower rates of hospitalization and decrease total medical costs in patients with chronic medical conditions. Advocated influenza vaccination annually and pneumonia vaccination ITA. Advocated weight loss through diet and exercise. Patient's ideal body weight according to height and gender is up to 175 lbs. Encouraged patient to adjust caloric intake to maintain/achieve ideal body weight, emphasizing on fruits, vegetables, whole grains, and fat-free or low-fat products. These include lean meats, poultry, fish, beans, eggs, and nuts and foods that are low in saturated fats, trans-fats, cholesterol, salt (sodium), and glycemic index. Stressed the importance of regular exercise up to the patient's capacity limits. In this case, we recommend occasional walking or other light activity. Patient to monitor BP daily and bring records to PCP for further management. Follow-up: [address], barium swallow and PFT [email or web address] Not available 07/09/2023 12:48:52 Plan of Treatment Reminders Order Date Submit Date Provider Last Modified By Organization Details Last Modified Time Details Appointments None recorded. Lab alpha-1-ant itrypsin (aat) phenotype, serum 2023 024 [email or web address] [facility] (Lab), [address] [place], [address], 4 14:18:26 BNP (B-type natriuretic peptide), serum or plasma 2023 024 XI [facility] (Lab), [address] [place], [address], 4 16:21:04 ige, total, serum 2023 024 [email or web address] 25 [facility] (Lab), [address] [place], [address], 4 14:18:26 tb (M tuberculosi s), ifn-gamma bhupinder, blood 2023 024 [email or web address] 25 [facility] (Lab), [address] [place], [address], 4 14:18:26 eosinophil count, manual, blood (OBS) 2023 024 [email or web address] 25 [facility] (Lab), [address] [place], [address], 4 14:18:26 igg subclasses 1+2+3+4, serum 2023 024 [email or web address] 25 [facility] (Lab), [address] [place], [address], 4 14:18:27 respiratory allergen panel - [facility] a 2023 024 [email or web address] 25 [facility] (Lab), [address] [place], [address], 4 14:18:27 respiratory allergen panel - [facility] b 2023 024 [email or web address] 25 [facility] (Lab), [address] [place], [address], 14:18:27 Referral physical therapist referral - Please call pt to schedule 2023 [email or web address] 256 [facility], [address], [place], [address], 15:35:00 Procedures None recorded. Surgeries None recorded. Imaging XR, chest 2023 024 [email or web address] Not available 10:10:43 CT, chest, w/o contrast - high resolution; no auth required 2023 024 [email or web address] 25 [facility] ([facility]), [address] [place], [address], 4 09:07:40 [place], modified barium swallow study 2023 024 [email or web address] 25 [facility] ([facility]), [address] [place], [address], 4 11:17:56 Medication Orders Zithromax Z-Cem 250 mg tablet 2023 024 [id number], [id number] [facility] [place], [address], 4 12:41:37 metformin 500 mg tablet 2023 024 [facility] - [address], [address], 4 17:43:02 atenolol 25 mg tablet 2023 024 [facility] - [address], [address], 4 09:24:18 lisinopril 20 mg tablet 2023 024 [facility] - [address], [address], 4 09:24:17 albuterol sulfate HFA 90 mcg/actuati on aerosol inhaler [address], [address], 4 09:24:21 atorvastati n 40 mg tablet [address], [address], 4 09:24:20 fluticasone propionate 50 mcg/actuati on nasal spray,suspe nsion [address], [address], 09:24:14 trazodone 50 mg tablet [address], [address], 09:24:19 gabapentin 100 mg capsule [address], [address], 09:24:16 duloxetine 30 mg capsule,del ayed release [address], [address], 4 09:24:19 fluoxetine 20 mg capsule [address], [address], 09:24:15 Patient TargetsNo targets recorded. Patient Instructions Encounter Date Encounter Id Patient Instructions Last Modified By Organization Details Last Modified Time 07/09/2023 [id number] complete PFT w/ post bronchodilator spirometry* - no auth required [email or web address] Not available 07/16/2023 09:38:53 Reason for Referral Physical Therapist Referral for Cerebrovascular accident eval and treat L upper and lower extrem weakness, hx of stroke Please call pt to schedule Referring Physician: Devon Hammond, Family Medicine, Encounter Date: 12/27/2023 Results Created Date Observation Date Name Description Value Unit Range Abnormal Flag Note LastModifiedBy Organization Detail LastModifiedTime 04/10/19 24 elect rocar diogr am No observ ation record ed. [email or web address] [facility] [address], [place], [address], 04/10/2023 10:13:46 04/12/19 24 04/12/2023 XR, chest No observ ation record ed. Not Available 2023 08:59:28 Result Notes None recorded. Problems Name Problem SNOMED Code Status Onset Date Resolution Date Notes Provider Name and Address Organization Details Recorded Time Cerebrovascula r accident 334268612 Active 2022 ALESSANDRO Glaser [address], [place], [address], [facility] 3 16:05:29 Neuropathy 749558994 Active 2022 ALESSANDRO Glaser [address], [place], [address], [facility] [place] 3 16:23:51 Mixed anxiety and depressive disorder 598142655 Active 2022 ALESSANDRO Glaser [address], [place], [address], [facility] [place] 3 16:25:26 Essential hypertension 71853566 Active 2022 CHIO Marte [address], [place], [address], [facility] [place] 3 11:56:55 Urinary incontinence 034095467 Active 2022 Amber Low MD [address], [place], [address], [facility] 3 17:21:14 Type 2 diabetes mellitus without complication 842075273 Active 2022 Devon Hammond [employer]EARCH EN[employer]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 3 17:48:47 Left hemiparesis 872069065 Active 2023 Devon Hammond RESEARCH ENVIRONMENTAL ENGINEER-C [address], [place], [address], [facility] 4 15:23:19 Dysuria 51222537 Active 2023 Devon Hammond RESEARCH ENVIRONMENTAL ENGINEER-C [address], [place], [address], [facility] 4 11:32:54 Chronic atelectasis 777834035 Active 2023 Jose Castillo MD [address], [place], [address], [facility] 4 12:46:05 Smoker 91857922 Active 2023 Jose Castillo MD [address], [place], [address], [facility] 4 12:59:10 Acute urinary tract infection 684243127 Active 2023 Devon Hammond RESEARCH ENVIRONMENTAL ENGINEER-C [address], [place], [address], [facility] 4 10:03:35 Gastroesophage al reflux disease 116892163 Active 2023 Devon Hammond RESEARCH ENVIRONMENTAL ENGINEER-C [address], [place], [address], [facility] 15:14:43 Seasonal allergic rhinitis 054525568 Active 2023 CHIO Gonzalez-Nena [address] [facility] [facility] [address], [place], [address] , [facility] 19:10:14 Notes:Medical History: Right CVA with left hemiparesis Anxiety/Depression Eosinophils 130/uL Obesity Hypertension Mixed hyperlipidemia T2DM with neuropathy ALIYAH Neurogenic bladder Thoracic diffuse idiopathic skeletal hyperostosis (DISH) Thoracic levoscoliosis Procedure History: Circumcision 1958 Vasectomy 1992 Right thumb surgery 1993 Right inguinal herniorrhaphy 1995 Right craniotomy 2021 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 Procedures Surgical History Date Name Laterality Status Provider Name and Address Organization Details Recorded Time repair of umbilical hernia completed Not Available [facility] 05/09/2022 13:12:36 Imaging Results Imaging Date Name Status LastModified by Organization Details LastModified Time 04/10/2023 electrocardiogram completed [email or web address] [facility] [address], [place], [address], 04/10/2023 10:13:46 04/12/2023 XR, chest completed [email or web address] Information no t available 04/17/2023 08:59:28 Procedure Notes None recorded. Medical Equipment None Reported. Allergies No known drug allergies Medications Name Sig Start Date Stop Date Status Note LastModified by Organization Details LastModified Time fluoxetine 40 mg capsule Take 1 capsule every day by oral route for 90 days. active Not Available Not Available No t Available cyclobenzap rine 10 mg tablet Take 1 tablet 3 times a day by oral route. active Not Available Not Available No t Available latanoprost 0.005 % eye drops active Not Available Not Available Not Available atorvastati n 40 mg tablet TAKE 1 TABLET BY MOUTH EVERY DAY active Not Available Not Available No t Available metformin 500 mg tablet TAKE 1 TABLET BY MOUTH TWICE A DAY active Not Available Not Available No t Available atorvastati n 80 mg tablet 05/27 completed Not Available Not Available Not Available trazodone 50 mg tablet TAKE 1 TABLET BY MOUTH EVERY DAY active Not Available Not Available No t Available benzonatate 200 mg capsule TAKE 1 CAPSULE BY MOUTH THREE TIMES A DAY 05/27 completed Not Available Not Available Not Available levetiracet am 500 mg tablet TAKE 1 TABLET BY MOUTH EVERY 12 HOURS 10/26 completed Not Available Not Available Not Available hydrocodone 5 mg-acetamin ophen 325 mg tablet 12/04 completed Not Available Not Available Not Available lisinopril 20 mg tablet Take 1 tablet every day by oral route for 30 days. active Not Available Not Available No t Available prednisone 20 mg tablet TAKE 2 EVERY DAY 05/27 completed Not Available Not Available Not Available gabapentin 400 mg capsule Take 1 capsule twice a day by oral route for 90 days. 10/26 completed Not Available Not Available Not Available atenolol 25 mg tablet TAKE 1 TABLET BY MOUTH EVERY DAY active Not Available Not Available No t Available Zithromax Z-Cem 250 mg tablet TAKE 2 TABLETS (500 MG) BY ORAL ROUTE ONCE DAILY FOR 1 DAY THEN 1 TABLET (250 MG) BY ORAL ROUTE ONCE DAILY FOR 4 DAYS 05/27 completed Not Available Not Available Not Available penicillin V potassium 500 mg tablet 12/04 completed Not Available Not Available Not Available amoxicillin 500 mg tablet TAKE 1 TABLET BY MOUTH EVERY 8 HOURS 05/27 completed Not Available Not Available Not Available oxycodone-a cetaminophe n 5 mg-325 mg tablet TAKE 1 TABLET EVERY 6 HOURS NEEDED FOR PAIN 05/27 completed Not Available Not Available Not Available propranolol 10 mg tablet TAKE 1 TABLET BY MOUTH THREE TIMES A DAY FOR 90 DAYS 10/26 completed Not Available Not Available Not Available modafinil 200 mg tablet Take 1 tablet every day by oral route. 11/13 completed Not Available Not Available Not Available benzonatate 100 mg capsule TAKE 2 Capsule BY MOUTH EVERY 12 HOURS NEEDED FOR COUGH 05/27 completed Not Available Not Available Not Available fluoxetine 20 mg tablet Take 1 tablet every day by oral route. 12/26 completed Not Available Not Available Not Available Tums Ultra 400 mg (as calcium carbonate 1,000 mg) chewable tablet Take 2 tablets twice a day by oral route as needed, for acid reflux. 2023 active Not Available Not Available Not Avai lable lisinopril 10 mg tablet 03/30 completed Not Available Not Available Not Available lidocaine 5 % topical patch APPLY 1 PATCH BY TOPICAL ROUTE ONCE DAILY (MAY WEAR UP TO 12HOURS.) 05/27 completed Not Available Not Available Not Available hydroxyzine HCl 25 mg tablet TAKE 1 Tablet BY MOUTH EVERY SIX HOURS NEEDED ITCHING 05/27 completed Not Available Not Available Not Available gabapentin 100 mg capsule Take 1 capsule every day by oral route at bedtime. active Not Available Not Available No t Available levofloxaci n 750 mg tablet TAKE 1 TABLET BY MOUTH EVERY DAY FOR 5 DAYS 05/27 completed Not Available Not Available Not Available methylpredn isolone 4 mg tablets in a dose pack TAKE 1 DOSE PK BY ORAL ROUTE. 05/27 completed Not Available Not Available Not Available albuterol sulfate HFA 90 mcg/actuati on aerosol inhaler INHALE 2 PUFFS EVERY 4-6 HOURS BY INHALATIO N ROUTE NEEDED. active Not Available Not Available No t Available timolol maleate 0.5 % eye drops active Not Available Not Available Not Available lisinopril 40 mg tablet 03/30 completed Not Available Not Available Not Available fluoxetine 20 mg capsule Take 1 capsule every day by oral route. 2023 active Not Available Not Available Not Avai lable fluticasone propionate 50 mcg/actuati on nasal spray,suspe nsion [place] 1 spray every day by intranasa l route. active Not Available Not Available No t Available timolol maleate 0.25 % eye gel forming solution 12/04 completed Not Available Not Available Not Available nitrofurant oin monohydrate /macrocryst als 100 mg capsule Take 1 capsule every 12 hours by oral route for 5 days. 12/26 completed Not Available Not Available Not Available duloxetine 30 mg capsule,del ayed release Take 1 capsule every day by oral route. active Not Available Not Available No t Available duloxetine 60 mg capsule,del ayed release TAKE 1 CAPSULE BY MOUTH EVERY DAY active Not Available Not Available No t Available chlorhexidi ne gluconate 0.12 % mouthwash SWISH/SPI T 15 ML BY MOUTH 3 TIMES A DAY UNTIL GONE 05/27 completed Not Available Not Available Not Available armodafinil 200 mg tablet TAKE 1 TABLET BY MOUTH EVERY DAY 05/27 completed Not Available Not Available Not Available Anoro Ellipta 62.5 mcg-25 mcg/actuati on powder for inhalation INHALE ONE PUFF ONCE DAILY DIRECTED. RINSE MOUTH WITH WATER AFTER EACH USE. SPIT OUT. DO NOT SWALLOW. 03/30 completed Not Available Not Available Not Available Fluzone Quad 6048-0790 (PF) 60 mcg (15 mcg x 4)/0.5 mL IM syringe 08/24 completed Not Available Not Available Not Available Vitals Date Recorded Body height Provider Name an d Address Organization Details Last Updated DateTime 04/15/2023 175.26 cm Barbara Corbett RN [facility] 04/15/2023 10:56:27 Date Recorded Body height Body mass index (BMI) Body weight Body temperature Heart rate Oxygen saturation Oxygen saturation in Arterial blood by Pulse oximetry Systolic blood pressure Diastolic blood pressure Provider Name and Address Organization Details Last Updated DateTime 175.26 cm 35.3 kg/m2 620037. 58 g 99.3 [degF] 98 /min 95 % 95 % 138 mm[Hg] 88 mm[Hg] Peyton Landeros RN [facility] Domo 09:32:59 Date Recorded Body height Body mass index (BMI) Body weight Body temperature Heart rate Oxygen saturation Oxygen saturation in Arterial blood by Pulse oximetry Systolic blood pressure Diastolic blood pressure Provider Name and Address Organization Details Last Updated DateTime 175.26 cm 35 kg/m2 745852. 39 g 97.5 [degF] 96 /min 96 % 96 % 120 mm[Hg] 62 mm[Hg] Chilo Bai [facility] 11:40:48 Date Recorded Heart rate Respiratory rate Provider N allie and Address Organization Details Last Updated DateTime 07/09/2023 96 /min 15 /min Jose Castillo MD [address] [facility], [place] [address], [place], [address], [facility] 07/09/2023 12:58:35 Date Recorded Body height Body temperature Heart rate Oxygen saturation Oxygen saturation in Arterial blood by Pulse oximetry Systolic blood pressure Diastolic blood pressure Provider Name and Address Organization Details Last Updated DateTime 4 175.26 cm 99.4 [degF] 69 /min 98 % 98 % 130 mm[Hg] 84 mm[Hg] Peyton Landeros RN [facility] 4 08:58:56 Social History Question Answer Notes LastModified by Organizat ion Details LastModified Time Tobacco Smoking Status Current Every Day Smoker Not Available [facility] 05/09/2022 13:12:31 What Is Your Level Of Alcohol Consumption? Occasional [id number] Information not available 05/09/2022 What Is Your Level Of Caffeine Consumption? Occasional [id number] Information not available 05/09/2022 In The 14 Days Before Symptom Onset, Have You Had Close Contact With A Laboratory-confir med COVID-19 While That Case Was Ill? No [id number] Information not available 05/09/2022 In The 14 Days Before Symptom Onset, Have You Had Close Contact With A Person Who Is Under Investigation For COVID-19 While That Person Was Ill? No [id number] Information not available 05/09/2022 What Type Of Diet Are You Following? REGULAR [id number] Information not available 05/09/2022 What Is Your Current Pack Years? 10-19packyears [id number] Information not available 05/09/2022 Have You Ever Been Counseled For Unhealthy Alcohol Use? No [id number] Information not available 05/09/2022 How Much Tobacco Do You Smoke? 2 PPW [id number] Information not available 05/09/2022 Do You Feel Stressed (tense, Restless, Nervous, Or Anxious, Or Unable To Sleep At Night)? [id number] [email or web address] Information not available 07/09/2023 Do You Use Any Illicit Or Recreational Drugs? No [id number] Information not available 05/09/2022 Has Tobacco Cessation Counseling Been Provided? No [id number] Information not available 05/09/2022 Do You Have Any Dietary Restrictions? No MIGRATION.[id number] 0697 Information not available 05/09/2022 Do You Or Have You Ever Used Any Other Forms Of Tobacco Or Nicotine? No [id number] Information not available 05/09/2022 Sex: Unknown Functional Status Question Answer Note LastModified by Organizat ion Details LastModified Time What is your exercise level? Occasional [id number] Information not available 05/09/2022 Mental Status None recorded. Family History Relationship Description Onset Age of this Age Resolved Age Notes LastModified by Organization Details LastModified Time Father Malignant tumor of pharynx [id number] Not available 05/09/2022 13:12:36 Medical History No medical history recorded. Immunizations Vaccine Type Date Status Note Provider Nam e and Address Organization Details Recorded Time Influenza, high-dose, quadrivalent, PF 04/03/2023 completed Peyton Landeros RN null, [place] [facility] 04/05/2023 10:49:40 Past Encounters Encounter ID Performer Location Encounter Start Date Encounter Closed Date Diagnosis/Indication Diagnosis SNOMED-CT Code Diagnosis ICD10 Code Diagnosis Note [id number] [facility] Primary [address] [place] [address] 12/04/2021 00:00:00 12/04/2021 12:05:[id number] [place] [address] 03/30/2022 00:00:00 03/30/2022 15:27:42 [id number] BO Croft [address] [place] [address] 10/26/2022 13:59:07 11/08/2022 18:15:37 Cough 99427404 R05.9 intermitte nt/recurre nt cough since last Nov after stroke-xra y orderedben zonatate 100mg has been ineffectiv e-Will increase dosage Essential hypertension 20410128 I10 Would like to switch to once daily medication rather than propanolol TIDWill trial atenolol Adult heal th examination 351060821 Z00.00 E78.5 Z13.1 Encouraged fresh fruits and veggiesInc rease daily water intakeEnco urage 30 mins of daily exerciseCo lonoscopy- Not interested at this time [id number] BO Croft [facility] [address] [place] [address] 04/04/2023 12:02:21 04/22/2023 10:49:08 Cough 54729890 R05.9 -script xray given- Administra tion of influenza vaccine 71070996 Z23 flu shot given [id number] Amber Low MD [facility] Care [facility] [address] [facility] [address] [place] [address] 04/15/2023 10:18:37 04/15/2023 12:34:45 [id number] PAYAL [facility] [address] 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, No active ROM, passive ROM limited to 100 degrees flexion/ab duction d/t pain-RUE strength 5/5, passive/ac tive ROM intact-LLE strength 3/5, active ROM limited to 90 degrees flexion, extension with 150 degrees, passive ROM is intact-RLE 5/5 strength, passive/ac tive ROM intact-pt is unable to walk with a walker or cane d/t listed weaknesses above-unab le to use a scooter d/t not being able to operate tiller with 1 hand and lack of postural stability- he currently uses a manual w/c and is pushed by an assist, unable to self propel in manual W/c d/t 0/5 strength to LUE and 3/5 to LLE-he is needing a mechanical wheelchair that is able to operated with his right hand-mecha nical W/c is needed for pt to go to the bathroom, get around the house to prepare/ea t meals, go to bedroom to groom/dres s-I believe the patient can safely operate the mobility device both mentally and physically -The patient is willing and motivated to use a power mobility device in the home [id number] Jose Castillo MD [facility] [address] [address] 07/09/2023 11:18:07 07/09/2023 16:24:24 Chronic cough 91229769 R05.3 R06.00 T78.40XA D89.9 J98.11 R13.10 Chronic atelectasis 1237 99916 J98.11 Smoker [id number] F17.218 F17.219 E83.42 [id number] BO Croft S_G Primary Care [facility] [address] [place] [address] 12/27/2023 08:52:23 12/27/2023 09:27:34 Renewal of prescription [id number] Z76.0 Essential hypertension [id number] I10 Would like to switch to once daily medication rather than propanolol TIDWill trial atenolol Mixed anxi ety and depressive disorder [id number] F41.8 Neuropathy 292760940 G62 .9 Type 2 davie betes mellitus without complication [id number] E11.9 Cerebrovas cular accident [id number] I63.9 Health Concerns Section Related Observation LastModified by Organization Detai ls LastModified Time None Recorded Concern Status LastModified by Organization Details LastModified Time None Recorded Advance Directives Directive None Recorded Payers Encounter Date Sequence Insurance Name Policy Number Policy Sal[place] Covered Member ID Salinas Member ID Guarantor Name 04/03/2023 1 [place] Skyler Mcduffie Augustineica [id number] Skyler Jose Rodriguezunica 04/03/2023 2 A[employer] HE[employer] OPTIONS (MEDICARE SUPPLEMENT) Skyler Llamas [id number] Skyler Rodriguezunica 04/15/2023 1 [place] Skyler Mcduffie Augustineica [id number] Skyler Jose Rodriguezunica 04/15/2023 2 [employer] HE[employer]CARE OPTIONS (MEDICARE SUPPLEMENT) Skyler Llamas [id number] Skyler Rodriguezunica 04/26/2023 1 [place] Skyler Mcduffie Michaelunica [id number] Skyler Jose Rodriguezunica 04/26/2023 2 [employer] HEALTHCARE OPTIONS (MEDICARE SUPPLEMENT) Skyler Llamas [id number] Skyler Rodriguezunica 07/09/2023 1 [place] Skyler Llamas [id number] Skyler Llamas 07/09/2023 2 [employer] HEALTHCARE OPTIONS (MEDICARE SUPPLEMENT) Skyler Llamas [id number] Skyler Llamas 12/27/2023 1 [place] Skyler Llamas [id number] Skyler Llamas 12/27/2023 2 [employer] HEALTHCARE OPTIONS (MEDICARE SUPPLEMENT) Skyler Llamas [id number] Skyler Llamas Notes Date Note Type Note Provider Name and Address Organization Details Recorded Time 04/26/2023 text/html Pt is here for mobility examination BO Croft [address] [facility], [facility] [address], [place], [address], [facility] [employer]ago - teamwork across global offices [facility] 04/30/2023 11:14:03 07/09/2023 text/html Primary care/Referring provider: BO Croft Patient is here to go over cough evaluation and management. Initial development of cough: 12/2022 Duration of cough: 6.5 months Nature of cough: productive of yellowish-green sputum Condition of cough: stable Timing of cough: none Frequency: every hour Limits activities: yes Aggravating factors: walking with quad cane Alleviating factors: resting Treatment history:azithromycin 500 mg 12/18/22 - 12/22/22azithromycin 500 mg 12/28/22 - 01/01/23amoxicillin 500 mg - 02/12/23azithromycin 500 mg 04/03/23 - 04/08/23levofloxacin 750 mg 04/16/23 - 04/20/23amoxicillin 500 mg 04/29/23 - 05/05/23 Other symptoms: Drooling: yes Dysarthria: no Neck pain: no Odynophagia: no Dysphagia: yes Weak mastication: yes Facial weakness: yes Nasal speech: no Protruding tongue: no Wheezing: yes Chest tightness: yes Orthopnea: no Frequent throat clearing or swallowing: no Palpitations: no Heartburn: no Edema: no Modified Medical [employer] [place] (mMRC) Dyspnea Scale - Grade 3 Grade 0 ? I only get breathless with strenuous exercise? . Grade 1 ? I get short of breath when hurrying on the level or walking up a slight hill? . Grade 2 ? I walk slower than people of the same age on the level because of breathlessness or have to stop for breath when walking at my own pace on the level? . Grade 3 ? I stop for breath after walking about 100 yards or after a few minutes on the level? . Grade 4 ? I am too breathless to leave the house? or ? I am breathless when dressing? . Environmental exposures: Nicotine smoke: 1 ppd 1988-present (quit 1 year in between) = 34 pack years [place]: no Dye: no Dust mites: yes Mold: no Damp basement: no Wood burning stove: no Animal dander: dogs Cockroaches: no Pollen: yes Arsenic: no Asbestos: no Beryllium: no Cadmium: no Chromium: no Mcdonald smoke: no Diesel fumes: no Nickel: no Silica: no Soot: no EPWORTH SLEEPINESS SCALE (ESS) CHANCE OF DOZING SCORE 0 = would never doze 1 = slight chance of dozing 2 = moderate chance of dozing 3 = high chance of dozing SITUATION AND CHANCE OF DOZING Sitting and reading - 3 Watching television - 2 Sitting inactive in a public place (e.g. a theater or meeting) - 1 As a passenger in a car for an hour without a break - 0 Lying down to rest in the afternoon when circumstances permit - 2 Sitting and talking to someone - 0 Sitting quietly after lunch without alcohol - 0 In a car, while stopped for a few minutes in the traffic - 0 TOTAL SCORE 8 Subjectively, patient has a slight chance of dozing. Jose Castillo MD [address] [address], [place], [address], [employer]twick 07/09/2023 12:59:50 12/27/2023 text/html pt is here for f/u BO Guaman [address] [facility], [address] [address], [place], [address], [employer]twick 12/27/2023 15:13:31
== END 2024-04-01 21:05 ==
PROVIDERS: Emergency Provider Emergency Medicine; PCP Family Medicine
DX: Z03.89 Encounter for observation for other suspected diseases and conditions ruled out (principal); I69.30 Unspecified sequelae of cerebral infarction
CPT/HCPCS: 99284; A9270

== ENCOUNTER 2024-11-15 14:58 | Emergency (ER) | payer MEDICARE, SELFPAY ==
--- OUTSIDE RECORDS SUMMARY | 2021-12-22 13:03 | XMS_ITS | Encounter Summary ---
Author Organization [facility] Address [address] [place] [address] Care Team Providers Care Archivist Military History Name Role Phone Gutierrez Richadrson MD Primary Care Provider [phone] Reason for Visit * Auth/Cert Specialty Diagnoses / Procedures Referred By Behzad mcdonald Referred To Contact Diagnoses CEREBRAL INFARCTION, UNSPECIFIED Referral ID Status Reason Start Date Expiration Date Visits Re quested Visits Authorized [id number] 1 1 Encounter Details Date Type Department Care Team (Latest Contact Info) Description 12/22/2021 1:03 PM CDT Hospital Encounter [address] [address] Rea Donnelly MD [address] [place] [address] [place], [place] [id number] Select Direct Social History Tobacco Use Types Packs/Day Years Used Date Smoking Tobacco: Every Day Cigarettes Smokeless Tobacco: Never Alcohol Use Standard Drinks/Week Comments Yes 0 (1 standard drink = 0.6 oz pur e alcohol) AUDIT-C Answer Date Recorded Q1: How often do you have a drink containing alcohol? Never 04/30/2022 Q2: How many drinks containi ng alcohol do you have on a typical day when you are drinking? Patient does not drink Q3: How often do you have si x or more drinks on one occasion? Never 04/30/2022 Overall Financial Resource Strain (CARDIA) Answe r Date Recorded How hard is it for you to pa y for the very basics like food, housing, medical care, and heating? Not hard at all 04/30/2022 [facility] - Occupational Stress Questionnaire Answer Date Recorded Do you feel stress - tense, restless, nervous, or anxious, or unable to sleep at night because your mind is troubled all the time - these days? Not at all 04/30/2022 Hunger Vital Sign Answer Date Recorded Within the past 12 months, y ou worried that your food would run out before you got the money to buy more. Never true 04/30/19 23 Within the past 12 months, t he food you bought just didn't last and you didn't have money to get more. Never true 04/30/2022 PRAPARE - Transportation Answer Date Re corded In the past 12 months, has l ack of transportation kept you from medical appointments or from getting medications? No 04/12 In the past 12 months, has l ack of transportation kept you from meetings, work, or from getting things needed for daily living? No 04/30/2022 Housing Stability Vital Sign Answer Dashawn e Recorded In the last 12 months, was t here a time when you were not able to pay the mortgage or rent on time? No 04/30/2022 In the last 12 months, how many places have you lived? 1 04/30/2022 In the last 12 months, was t here a time when you did not have a steady place to sleep or slept in a group home (including now)? No 04/30/2022 Sex and Gender Information Value Date Recorded Sex Assigned at Male 09/10/2022 10:38 AM CDT Legal Sex Male 1:46 PM [employer] Gender Identity Male 09/10/2022 10:38 AM CDT Sexual Orientation Straight 09/10/2022 10 :38 AM CDT documented as of this encounter Functional Status * Question Answer Date of Assessment Author Q1: How often do you have a drink containing alcohol? Never 04/30/2022 6:45 AM Rosibel Blackman , RN Q2: How many drinks containing alcohol do you have on a typical day when you are drinking? Patient does not drink 04/30/2022 6:45 AM Rosibel Blackman, LONG Q3: How often do you have six or more drinks on one occasion? Never 04/30/2022 6:45 AM Rosibel Blackman RN * Audit-C Score Answer Date of Assessment Author 0 04/30/2022 6:45 AM Julio Blackman RN * Is person deaf or have serious hearing difficulty? Answer Date of Assessment Author No 12/09/2021 7:45 PM Michelle Pacheco RN * Is person blind or have serious difficulty seeing? Answer Date of Assessment Author No 12/09/2021 7:45 PM Michelle Pacheco RN * Does person have serious difficulty walking/climbing stairs? Answer Date of Assessment Author No 12/09/2021 7:45 PM Michelle Pacheco RN * Does person have difficulty dressing/bathing? Answer Date of Assessment Author No 12/09/2021 7:45 PM Michelle Pacheco RN * Does person have difficulty doing errands alone? Answer Date of Assessment Author No 12/09/2021 7:45 PM Michelle Pacheco RN documented as of this encounter Mental Status * Does person have difficulty concentrating/remembering/making decisions? Answer Entry Date Author No 12/09/2021 7:45 PM Michelle Pacheco RN documented in this encounter Plan of Treatment Not on file documented as of this encounter Visit Diagnoses Not on filedocumented in this encounter Care Teams Archivist Military History Relationship Specialty Start Date End Date Gutierrez Richardson MD [address] [address] [place] [address] PCP - General 12/12/21 01/02/22 documented as of this encounter
--- NOTE | ~2024-11-15 | CT_ITS ---
EXAMINATION: CT abdomen pelvis wo con, 11/15/2024 15:25 CDT HISTORY: Urinary symptoms, altered mental status COMPARISON: No comparisons available. TECHNIQUE: CT scan of the abdomen and pelvis was performed without IV contrast. One or more of the following dose reduction techniques were used: automated exposure control, adjustment of the mA and/or kV according to patient size, use of iterative reconstruction technique. Unless otherwise stated, incidental findings do not require dedicated follow up imaging FINDINGS: CT abdomen: LUNG BASES: The lung bases are clear. The visualized portions of the heart and pericardium are unremarkable. LIVER: Mild hepatic steatosis. Mild cirrhotic disease of the liver suspected. SPLEEN: Unremarkable, no splenomegaly. KIDNEYS: Horseshoe kidney variant noted. Right Kidney: Right kidney renal calculi the largest mid pole 5 x 6 mm, no hydronephrosis or hydroureter ureter. Left Kidney: Left kidney atrophic. ADRENAL GLANDS: Unremarkable. PANCREAS: Unremarkable. GALLBLADDER/BILIARY: The gallbladder is contracted. STOMACH AND ESOPHAGUS: Visualized stomach and esophagus within normal limits. BOWEL/MESENTERY: Moderate fecal content, no colitis or diverticulitis. Mild diverticulosis. No colitis or diverticulitis. Appendix normal. Mesentery normal. Small bowel normal. ADENOPATHY/RETROPERITONEUM: No lymphadenopathy. AORTA/VASCULATURE: Normal caliber aorta. FREE FLUID OR FREE AIR: No free fluid.. CT pelvis: SOLID ORGANS/REPRODUCTIVE: Prostate enlargement, correlate with PSA. BLADDER: Within normal limits. OSSEOUS STRUCTURES: Moderate degenerative changes lumbar spine. OVERLYING SOFT TISSUES: Small bilateral fat-containing inguinal hernia. IMPRESSION: 1. No acute intra-abdominal process. Reviewed, dictated and finalized at location A.
--- NOTE | 2024-11-15 15:07 | ED_ITS ---
HPI - General Adult General Chief complaint: Urogenital-Male Stated complaint: uti History of Present Illness HPI narrative: 64-year-old male presents emergency department for evaluation for urinary symptoms. Patient does have prior history of CVA and does have a legal guardian. [facility] was concerned that the patient has a urinary tract infection but they are unable to do outpatient urine testing until . Patient was reluctant to come to the emergency department and initially the legal guardian was willing to have outpatient testing done but did not feel comfortable waiting until . Patient was ultimately treated with 4 mg of IM ketamine. Upon arrival to the emergency department patient is more relaxed and sedate. Related Data Allergies Allergy/AdvReac Type Severity Reaction Status Date / Time No Known Allergies Allergy Verified 11/15/24 15:32 Review of Systems 2 Review of Systems: All systems reviewed & are unremarkable except as noted in HPI and below PMFSH Social History Social History Substance use type: does not use Exam 2 Narrative: APPEARANCE: Well appearing, no pain, no distress, well-nourished. HEAD: normocephalic, atraumatic. EYES: PERRLA/EOMI, conjunctivae clear. NOSE: Normal no drainage EARS:TMS clear with good light reflex. THROAT: Pharynx clear, no exudate. NECK: Supple. No adenopathy, no masses. RESPIRATORY: Airway patent, respirations nonlabored. Clear to auscultation bilaterally, no rales, rhonchi, wheezing. CARDIOVASCULAR: Regular rate and rhythm without murmurs rubs or gallops. ABDOMINAL: Soft, nontender, nondistended, normal bowel sounds MUSCULOSKELETAL: Moves all extremities. Strength/ROM intact, No edema, No calf tenderness. NEURO: At his typical normal baseline per snf SKIN: Warm, dry. Normal Color Course Vital Signs Vital signs: Vital Signs Pulse Rate 76 11/15/24 15:15 Respiratory Rate 17 11/15/24 15:15 Blood Pressure 153/78 H 11/15/24 15:15 Pulse Oximetry 96 11/15/24 15:15 Temperature 98.2 F 11/15/24 15:24 Pulse Rate 66 11/15/24 18:26 Respiratory Rate 20 11/15/24 18:26 Blood Pressure 136/69 11/15/24 18:26 Pulse Oximetry 99 11/15/24 18:26 Oxygen Delivery Room Air 11/15/24 15:24 Medical Decision Making MDM Narrative Medical decision making narrative: 64-year-old male presents emergency department for evaluation for urinary symptoms. Patient is afebrile with no leukocytosis hemoglobin of 15.1. Patient's INR is 1.0. Patient had no significant abnormalities on his CMP patient's initial lactic acid was mildly elevated but did improve to 2.4. UA was negative for infection. CT abdomen pelvis was ordered and showed no acute abnormality. Patient continues to stay he is not having any symptoms. Patient will be discharged back to his care facility. Vital Signs Vital Signs: Vital Signs Pulse Rate 76 11/15/24 15:15 Respiratory Rate 17 11/15/24 15:15 Blood Pressure 153/78 H 11/15/24 15:15 Pulse Oximetry 96 11/15/24 15:15 Temperature 98.2 F 11/15/24 15:24 Pulse Rate 66 11/15/24 18:26 Respiratory Rate 20 11/15/24 18:26 Blood Pressure 136/69 11/15/24 18:26 Pulse Oximetry 99 11/15/24 18:26 Oxygen Delivery Room Air 11/15/24 15:24 Lab Data 11/15/24 15:19 11/15/24 15:19 Labs: Lab Results 11/15/24 11/15/24 Range/Units 15:19 18:02 WBC 7.3 (4.5-10.0) K/mm3 RBC 4.62 (4.6-6.20) M/mm3 Hgb 15.1 (14.0-18.0) g/dL Hct 44.8 (42.0-52.0) % MCV 97.0 (80-100) fl MCH 32.7 (26-34) pg MCHC 33.7 (32-36) g/dl RDW 15.3 H (11.5-14.5) % Plt Count 182 (150-375) k/mm3 MPV 8.7 (7.4-10.4) fl Immature Gran % (Auto) 0.1 (0-0.5) % Neut % (Auto) 75.8 H (45.5-73.1) % Lymph % (Auto) 15.6 L (18.3-44.2) % Highland % (Auto) 6.2 (2.6-8.5) % Eos % (Auto) 1.8 (0-4.4) % Baso % (Auto) 0.5 (0.2-1.2) % Lymph # (Auto) 1.14 (0.9-3.2) K/mm3 Highland # (Auto) 0.5 (0.1-0.6) K/mm3 Eos # (Auto) 0.1 (0-0.3) K/mm3 Baso # (Auto) 0.0 (0.0-0.1) K/mm3 Abs Immat Gran (auto) 0.01 (0.00-0.031) K/mm3 Absolute Neuts (auto) 5.5 (1.3-6.7) K/mm3 Absolute Nucleated RBC 0.000 (0.0-0.012) K/mm3 Nucleated RBC % 0.0 (0.0-0.2) % PT 12.7 (11.1-14.7) Seconds INR 1.0 APTT 28.2 (22.3-36.8) Seconds Sodium 139 (137-145) mmol/L Potassium 4.1 (3.4-5.0) mmol/L Chloride 102 (98-107) mmol/L Carbon Dioxide 26 (22-30) mmol/L Anion Gap 11 (4-12) mmol/L BUN 7 L (9-20) mg/dL Creatinine 0.65 L (0.7-1.3) mg/dL Estim Creat Clear Calc 122 ml/min Estimated GFR > 60 (59 - ) Glucose 140 H (65-110) mg/dL Lactic Acid 3.9 H 2.4 H (0.7-2.0) mmol/L Calcium 9.3 (8.4-10.2) mg/dL Total Bilirubin 0.5 (0.2-1.3) mg/dL AST 35 (17-59) U/L ALT 28 (6-50) U/L Alkaline Phosphatase 86 (38-126) U/L Total Protein 7.6 (6.3-8.2) g/dL Albumin 4.4 (3.5-5.1) g/dL Urine Color Yellow (Yellow) Urine Appearance Clear (Clear) Urine pH 6.0 (5.0-9.0) Ur Specific Ivel 1.010 (1.001-1.035) Urine Protein Negative (Negative) mg/dL Urine Glucose (UA) Negative (Negative) mg/dL Urine Ketones Negative (Negative) mg/dL Ur Blood (Man) 1+ H (Negative) Urine Nitrate Negative (Negative) Urine Bilirubin Negative (Negative) Urine Urobilinogen 0.2 (<2.0) mg/dL Add Ur Microanalysis Reviewed Leukocyte Esterase Rfl Trace H (Negative) PRERNA/UL Urine RBC 3-5 H (0-2) /hpf Urine WBC 0-5 (0-3) /hpf Ur Squamous Epith Cells None seen (Few) /hpf Urine Bacteria None seen /hpf Urine Casts 0-2 Discharge Plan Discharge Clinical Impression: Agitation Patient Disposition: [facility] Condition: Stable Instructions: Antibiotic Form Additional Instructions: Your urinalysis was negative, CT of your abdomen pelvis showed no acute abnormality. You did have a elevated lactic acid but this did improve with rehydration. No other lab abnormalities. Have close follow-up with your primary care physician. Patient Language: Romanian Follow-up/Referrals: Devante,Amber Sylvester MD [Primary Care Provider]
--- OUTSIDE RECORDS SUMMARY | 2024-11-15 15:10 | XMS_ITS | Clinical Summary ---
Author Organization [facility] Address [address] [place] [address] Care Team Providers Care Field Cane Scaler Helper Name Role Phone Unknown, Notinfile Primary Care Provider Unavail able Allergies No known active allergies Medications atorvastatin [...] Active Problems Problem Noted Date Diagnosed Date AION (acute ischemic optic neuropathy) magda valentin 04/10/2023 Assessment & Plan (04/11/2023 7:54 AM TEST CENTER MANAGER): From previous notes and patients history Educated and reassured patient of findings Large HVF loss OU, patient educated will not pass drivers test based on todays results Educated on natural course of vision after AION/strokes Patient would like to confirm with eid VF Visual field defect 02/25/2023 Assessment & Plan (04/10/2023 3:52 PM TEST CENTER MANAGER): 2/2 previously known stroke OS > OD Type 2 diabetes mellitus without complication Cough 10/26/2022 Urinary incontinence 10/11/2022 Mixed anxiety [...] 12/22/2021 Acute respiratory failure 12/11/2021 Brain herniation 12/11/2021 Leukocytosis 12/11/2021 Nihss score 11 12/11/2021 Acute ischemic right MCA stroke 12/09/2021 Tobacco use disorder 12/09/2021 Primary hypertension 12/09/2021 Encounters Date Type Department Care Team Description 10/20/2024 Telephone [facility] [address] [place] [address] Vineet Sultana OD requesting referral from Last 3 Months Surgical History Surgery Date Site/Laterality Comments UMBILICAL [...] on file Legal Sex Male 8:34 AM TEST CENTER MANAGER Gender Identity Not on file Sexual Orientation Not on file Obstetrics History Last Filed Vital Signs Vital Sign Reading Time Taken Comments Blood Pressure 110/84 03/25/2023 10:01 AM TEST CENTER MANAGER Pulse 67 03/25/2023 10:01 AM TEST CENTER MANAGER Temperature - - Respiratory Rate 16 03/25/2023 10:01 AM TEST CENTER MANAGER Oxygen Saturation 97% 03/25/2023 10:01 AM TEST CENTER MANAGER Inhaled Oxygen Concentration - - Weight 108.9 kg (240 lb) 03/25/2023 10:01 AM TEST CENTER MANAGER Height 176.5 cm (5' 9.5) 03/25/2023 10:01 AM CS T Body Mass Index 34.93 03/25/2023 10:01 AM TEST CENTER MANAGER Plan of Treatment Health Maintenance Due Date Last Done Comments Albumin Creatinine Ratio, Urine 1958 Colon Cancer Screening-Colonoscopy 1958 Depression Screening 1958 Fall Risk Assessment 1958 Hepatitis C Screening 1958 Prostate Cancer Screening-PSA 1958 Foot Exam 1958 DTaP/Tdap/Td Vaccine (1 - Tdap) 1969 Hepatitis B Screening 1976 Pneumococcal vaccine 65+ (1 of 2 - PCV) 1977 Zoster Vaccine (1 of 2) 2008 Hemoglobin A1C 06/09/2022 12/09/2021 Lipid Panel 12/09/2022 12/09/2021 Abdominal Aortic Aneurysm (A AA) Screen 2023 Well Visit 65+ 2023 eGFR 05/26/2023 05/25/2022, 05/09, 05/11/2022, Additional history exists Covid-19 Vaccine ( - 2023-2 5 season) 2023 02/14/2021, 05/21/2020, 04/23/2020 Dilated Eye Exam 04/10/2024 04/10/2023 Influenza Vaccine (#1) 2024 04/03/2023, 2020 Procedures Procedure Name Priority Date/Time Associated Diagnosis Comments EGFR Routine Gen Lab 05/25/2022 11:08 AM CDT from Last 3 Months or Most Recently Relevant to Health Maintenance Results * eGFR (05/25/2022 11:08 AM CDT) eGFR >90 90 - 130 mL/min/1. [address] [facility] Comment: Interpretive Data Reference Interval Normal >/= 90 mL/min/1.73m2 Mildly decreased* 60 - 89 mL/min/1.73m2 Mildly to moderately decreased 45 - 59 mL/min/1.73m2 Moderately to severely decreased 30 - 44 mL/min/1.73m2 Severely decreased 15 - 29 mL/min/1.73m2 Kidney Failure < 15 mL/min/1.73m2 *Relative to young adult level Estimated glomerular [...] 8 AM CDT 05/25/2022 11:38 AM CDT Alphonso Donahue MD LAB BLOOD ORDERABLES Final Re sult [facility] Department [place] [address] from Last 3 Months or Most Recently Relevant to Health Maintenance Insurance MEDICARE [facility] MEDICARE AARP Care Teams Field Cane Scaler Helper Relationship Specialty Start Date End Date Unknown, Notinfile PCP - General 10/21/24
--- OUTSIDE RECORDS SUMMARY | 2024-11-15 15:10 | XMS_ITS | Clinical Summary ---
Author Organization [facility] Address [address] [place] [address] Phone Care Team Providers Care Plodding Machine Operator Name Role Phone Amber Low MD Primary Care Provider + Social History Tobacco Use Types Packs/Day Years Used Date Smoking Tobacco: Never Assessed Feeling Safe Answer Date Recorded Are you in a relationship wi th someone who hurts you emotionally and/or physically? No 05/15/2023 Sex and Gender Information Value Date Recorded Sex Assigned at Not on file Legal Sex Male 4:08 PM LOG RIDER Gender Identity Not on file Sexual Orientation Not on file Plan of Treatment Health Maintenance Due Date Last Done Comments DIABETES ANNUAL FOOT EXAM 1976 DIABETES MICROALBUMIN ANNUAL SCREEN 1976 LDL CHOLESTEROL ANNUAL 1976 DTAP/TDAP/TD VACCINES (1 - Tdap) 1977 PNEUMOCOCCAL VACCINE 50+ YEARS (1 of 2 - PCV) 03/31/18 78 COLORECTAL SCREENING 2003 Colorectal Cancer Screening 2003 FIT-DNA Q 3 years 2003 FIT/FOBT Q 1 year 2003 Flex Sig/CT Colonography Q 5 years 2003 ZOSTER VACCINE (1 of 2) 2008 RSV VACCINE (60+ or ) (1 - Risk 60-74 years 1-dose series) 2018 DIABETES HBA1C Q 6 MONTHS 06/09/2022 12/09/2021 DIABETES ANNUAL RETINAL EXAM 04/10/2024 04/10/2023 INFLUENZA VACCINE (#1) 2024 04/03/2023 Insurance MEDICARE PART A AND B [facility] [id number] Care Teams Plodding Machine Operator Relationship Specialty Start Date End Date Amber Low MD [address] [place] [address] [place] [address] PCP - General Family Practice 05/15/23
--- OUTSIDE RECORDS SUMMARY | 2024-11-15 15:10 | XMS_ITS | Clinical Summary ---
Author Organization [facility] Address [address] [place] [address] Care Team Providers Care Level Vial Marker Name Role Phone Unavailable Primary Care Provider [...] Dysphagia 12/23/2021 Hypertension 12/23/2021 Debility 12/22/2021 Immunizations Immunization Administration Dates Next Due Pfizer SARS-CoV-2 Vaccination 12/22/2021 (Deferred: Patient not in facility during flu season),11/05/2021(Deferred: Not available - [facility] does not provide COVID Vaccine- pt has had 2) Social History Tobacco Use Types Packs/Day Years Used Date Smoking Tobacco: Every Day Cigarettes 1 15 Tobacco Cessation:Ready to Q uit: No; Counseling Given: No Comments:Pt - pt has smoked forever. Alcohol Use Standard Drinks/Week Comments Yes 3 [...] 56 01/13/2022 8:05 AM CDT Temperature 36.6 C (97.8 F) 01/13/2022 8:05 AM CDT Respiratory Rate 18 01/13/2022 8:05 AM CDT Oxygen Saturation 94% 01/13/2022 8:05 AM CDT Inhaled Oxygen Concentration - - Weight 87.1 kg (192 lb) 01/11/2022 4:00 AM CDT Height 176.5 cm (5' 9.5) 01/11/2022 4:00 AM CDT Body Mass Index 27.95 01/11/2022 4:00 AM CDT Plan of Treatment Health Maintenance Due Date Last Done Comments CT Colonography 1958 Colonoscopy 1958 Colorectal Cancer Screening 1958 FIT-DNA (Cologuard) 1958 FIT 1958 FOBT 1958 Sigmoidoscopy 1958 Annual Visit Topic 1959 MMR Vaccines (1 of 1 - Stand laverne series) 1959 Hepatitis C Screening 1976 DTaP/Tdap/Td Vaccines (1 - Tdap) 1977 Pneumococcal Vaccine: 65+ Ye ars (1 of 4 - PCV) 1977 PSA Test 2013 HIB Vaccines Aged Out No longer eligi [...]
--- OUTSIDE RECORDS SUMMARY | 2024-11-15 15:10 | XMS_ITS | Encounter Summary ---
Author Organization [facility] Address [address] [place] [address] Care Team Providers Care Iuss Acoustic Analyst Name Role Phone Gutierrez Richardson MD Unavailable [phone] Rosana Castro PA-C Primary Care Provider [phone] Gutierrez Richardson MD Primary Care Provider [phone] Reason for Visit * Reason Onset Date Comments Follow-up 04/27/2022 Encounter Details Date Type Department Care Team (Late Contact Info) Description 04/27/2022 Telephone [facility] [address] [facility], [facility] [place] [address] Rani Chapman Follow-up Social History [...] and heating? Not hard at all 04/30/2022 [facility] [place] [facility] Occupat [facility] - Occupational Stress Questionnaire Answer Date Recorded [...] place to sleep or slept in a chcf (including now)? No 04/30/2022 Sex and Gender Information Value Date Recorded Sex Assigned at Male 09/10/2022 10:38 AM CDT Legal Sex Male 1:46 PM BUSINESS BROKER Gender Identity Male 09/10/2022 10:38 AM CDT [...] on one occasion? Never 04/30/2022 6:45 AM BUSINESS BROKER Rosibel Lopez RN * Audit-C Score Answer Date of Assessment Author 0 04/30/2022 6:45 AM BUSINESS BROKER Julio Lopez RN * Is person deaf or have serious hearing difficulty? Answer Date of Assessment Author No 12/09/2021 7:45 PM CDMichelle Mack RN * Is person blind or have serious difficulty seeing? Answer Date of Assessment Author No 12/09/2021 7:45 PM CDT Michelle Kenny RN * Does person have serious difficulty [...] Michelle Pacheco RN documented in this encounter Miscellaneous Notes * Telephone Encounter - Rani Chapman - 04/27/2022 10:20 AM CST Contact patient. Reviewed surgery instructions for Saturday. Arrival time 0530am to [address] NPO after midnight. NESS BROKER documented in this encounter Plan of Treatment Not on file documented as of this encounter Visit Diagnoses Not on filedocumented in this encounter Care Teams Iuss Acoustic Analyst Relationship Specialty Start Date End Date Rosana Castro PA-C [address] [place] [address] [place] [phone] PCP - General 03/15/22 06/27/22 Gutierrez Richardson MD [address] [place] [address] PCP - General 06/28/22 Gutierrez Richardson MD [address] [facility] [address] [place] [address] 01/03/22 documented as of this encounter
--- OUTSIDE RECORDS SUMMARY | 2024-11-15 15:10 | XMS_ITS | Clinical Summary ---
Author Organization [facility] Address [address] [place] [address] Care Team Providers Care Community Service Technician Name Role Phone Gutierrez Richardson MD Unavailable [phone] Gutierrez Richardson MD Primary Care Provider [phone] Source Comments [facility],non-owned Affiliates and Associated Physician Practices is amultiple site organization consisting of ambulatory clinics and hospital sitesin [place], [place], [place] and [place]. This disclosure is being madepursuant to the Care Everywhere program and may not contain all information available regarding this patient. Last updated 17.[facility] Allergies No known active allergies Medications * Be aware that medications may not be up to date on this document. Alwaysverify current medications with the patient. albuterol HFA (PROVENTIL;BETH TOLIN;PROAIR) 108 (90 BASE) MCG/ACT inhaler Inhale 2 puffs by mouth every 6 hours as needed for Cough 1 Inhaler 8 Active atorvastatin (Lipitor) 80 MG tablet Take 1 (one) tablet by mouth at bedtime 45 tablet 1 2 Active amLODIPine (Norvasc) 5 MG tablet Take 1 (one) tablet by mouth once daily 30 tablet 1 2 Active Additional Information Patient not taking.Reported on [...] Take 5 mg by mouth at bedtime 2 Active modafinil (Provigil) 200 MG tablet Take 1 (one) tablet by mouth every morning Active propranolol (Inderal) 10 MG tablet propranolol 10 mg tablet Take 1 tablet 3 times a day by oral route for 90 days. 2 Active benzonatate (Tessalon) 100 MG capsule Take 1 (one) capsule by mouth 3 times daily as needed for Cough Active calcium carbonate (Tums) 500 MG chew tablet Take 1 (one) tablet by mouth daily with food Active traZODone (Desyrel) 50 MG tablet Take 1 (one) tablet by mouth at bedtime Active fluticasone propionate (Flonase) 50 MCG/ACT nasal spray Langeloth 2 (two) sprays into each nostril as needed Active aspirin (Aspirin) 81 MG chew tablet Take 1 (one) tablet by mouth once daily 45 tablet 1 3 Active hydrOXYzine HCl (Atarax) 25 MG tablet Take 1 (one) tablet by mouth every 6 hours as needed for Itching 3 Active heparin 5000 UNIT/ML injection Inject 1 mL subcutaneously every 8 hours 3 Active levETIRAcetam (Keppra) 500 MG tablet Take 1 (one) tablet by mouth every 12 hours 3 Active DULoxetine (Cymbalta) 30 MG capsule Take 3 (three) capsules by mouth once daily 3 Active famotidine (Pepcid) 20 MG tablet Take 1 (one) tablet by mouth 2 times daily 3 Active polyethylene glycol 3350 (Miralax) 17 g packet Take 17 (seventeen) g by mouth once daily as needed 3 Active Active Problems Problem Noted Date Diagnosed [...] and heating? Not hard at all 04/30/2022 [facility] Occupat ional [facility] - Occupational Stress [...] place to sleep or slept in a senior living (including now)? No 04/30/2022 Sex and Gender Information Value Date Recorded Sex Assigned at Male 09/10/2022 10:38 AM CDT Legal Sex Male 1:46 PM TRAVEL RN OR Gender Identity Male 09/10/2022 10:38 AM CDT Sexual Orientation Straight 09/10/2022 10 :38 AM CDT Last Filed Vital Signs Vital Sign Reading Time Taken Comments Blood Pressure 118/70 05/03/2022 3:05 PM TRAVEL RN OR Pulse 92 05/03/2022 3:05 PM TRAVEL RN OR Temperature 36.9 C (98.4 F) 05/03/2022 3:05 PM TRAVEL RN OR Respiratory Rate 16 05/03/2022 3:05 PM TRAVEL RN OR Oxygen Saturation 89% 05/03/2022 3:05 PM TRAVEL RN OR Inhaled Oxygen Concentration 30% 12/21/2021 8 :25 AM CDT Weight 91.9 kg (202 lb 8 oz) 04/30/2022 6:14 AM TRAVEL RN OR Height 175.3 cm (5' 9) 04/30/2022 6:14 AM TRAVEL RN OR Body Mass Index 29.9 04/30/2022 6:14 AM TRAVEL RN OR Plan of Treatment Health Maintenance Due Date Last Done Comments COLOGUARD (AGES 45-75) - COLON CA SCREENING 1960 COLON MONITORING 1958 COLONOSCOPY - COLON CA SCREENING 1958 CT COLONOGRAPHY - COLON CA SCREENING 1960 Colorectal Cancer Screening 1960 FIT - COLON CA SCREENING 1958 FLEX SIG - COLON CA SCREENING 1960 HEPATITIS C SCREENING 03/26/1976 DTAP/TDAP/TD VACCINES (1 - Tdap) 1977 PNEUMOCOCCAL VACCINE 50+ (1 of 1 - PCV) 2008 ZOSTER VACCINE (1 of 2) 2008 Respiratory Syncytial Virus (RSV) Vaccine Pt: or over 60 yrs (1 - Risk 60-74 years 1-dose series) 2018 AAA SCREENING 2023 DEPRESSION SCREENING 03/11/2024 COVID-19 VACCINE (2023- season) 2024 INFLUENZA VACCINE (#1) 2024 SCREENING FOR DIABETES 05/03/2025 , 05/02/2022, 05/01/2022, Additional history exists HEPATITIS B VACCINE Aged Out No longe r eligible based on patient's age to complete this topic HIB VACCINE Aged Out No longer eligi ble based on patient's age to complete this topic HPV VACCINE Aged Out No longer eligi ble based on patient's age to complete this topic MENINGOCOCCAL (Group B) VACCINE SHARED DECISION-MAKING Aged Out No longer eligible based on patient's age to complete this topic MENINGOCOCCAL GROUPS A/C/Y/W VACCINE Aged Out No longer eligible based on patient's age to complete this topic Medical Devices Implanted Type Area Final Inspection Supervisor Device Identifier Shelf Expiration Date Model / Serial / Lot Precision Multiparameter Catheter Implanted:Qty: 1 on 12/10/2021 by Ken Fu MD at [facility] Catheters Left: Cranial 06/08/2024 [id number] / [id number] / Description:[employer] ; CRANIAL BOLT cost per Cadence Graft Tissue Drgn + Bvn Clgn Mtrx 5x4in Implanted:Qty: 1 on 12/10/2021 by Ken Fu MD at [facility] Other (Type not listed) Right: Cranial [employer] 08/08/2024 [id number] / / [id number] Sys Crd Mntr Rvl Linq Ii - [id number] Implanted:Qty: 1 on 12/14/2021 by Shae Choi MD at [facility] [employer] [place] 09/25/2022 [id number] / [id number] / [id number] Screw 1.5mm 4mm Slf Drl Ax Stab Unv Implanted:Qty: 15 on 04/30/2022 by Ken Fu MD at [facility] Right: Cranial Crowdx Craniomaxillofacial [id number] / / Plate 2x2 Hl Lopro Crnmxf .4mm Sm Bx Unv Implanted:Qty: 3 on 04/30/2022 by Ken Fu MD at [facility] Right: Cranial Mimi Craniomaxillofacial [id number] / / Plate 6 Hl Lopro Bar Crnmxf .4mm 2y Unv Implanted:Qty: 1 on 04/30/2022 by Ken Fu MD at [facility] Right: Cranial Lawrence Craniomaxillofacial [id number] 8 / / Explanted Type Area Final Inspection Supervisor Device Identifier Shelf Expiration Date Model / Serial / Lot Set Xtrn Drn 35cm 1.9mm 3-15cm Cath Inr Explanted:Qty: 1 on 04/30/2022 at [facility] [employer] [id number] / / Procedures Procedure Name Priority Date/Time Associated Diagnosis Comments BASIC METABOLIC PANEL (CALCIUM TOTAL) Routine 05/03/2022 3:33 AM TRAVEL RN OR History of cranioplasty from Last 3 Months or Most Recently Relevant to Health Maintenance Results * (ABNORMAL) BASIC METABOLIC PANEL (CALCIUM TOTAL) (05/03/2022 3:33 AM TRAVEL RN OR) BUN 14 7 - 26 mg/dL 05/03/2022 4:42 AM [facility] Creatinine 0.59(L) 0.71 - 1.16 mg/dL 05/03/2022 4:42 AM [facility] Sodium 140 136 - 145 mmol/L 05/03/2022 4:42 AM [facility] Potassium 4.3 3.5 - 4.5 mmol/L 05/03/2022 4:42 AM [facility] Comment:Confirmed by repeat analysis. Chloride 105 98 - 107 mmol/L 05/03/2022 4:42 AM [facility] Comment:Confirmed by repeat analysis. CO2 24 22 - 29 mmol/L 05/03/2022 4:42 AM [facility] Glucose 143(H) 70 - 115 mg/dL 05/03/2022 4:42 AM [facility] Calcium 9.0 8.4 - 10.2 mg/dL 05/03/2022 4:42 AM [facility] Anion Gap 15 8 - 18 05/03/2022 4:42 AM [facility] BUN/Creatinine Ratio 24(H) 7 - 23 05/03/2022 4:42 AM [facility] Osmolality Calculated 293 270 - 300 mOsm/kg 05/03/2022 4:42 AM [facility] eGFR by CKD-EPI >90 >=90 mL/min/1.7 3 m2 05/03/2022 4:42 AM [facility] Blood BLOOD SPECIMEN / Unknown Venipuncture / Unknown 05/03/2022 3:33 AM TRAVEL RN OR 05/03/2022 3:45 AM [facility] us Ken Fu MD LAB - CHEMISTRY ORDERABLES F inal Result [facility] [address] [place] [address], [facility] [phone] from Last 3 Months or Most Recently Relevant to Health Maintenance Insurance [facility] ANTHEM ANTHEM ANTHEM ANTHEM ANTHEM ANTHEM ANTHEM * Guarantor: EVAN LLAMAS Account Type Relation to Patient Date of Phone Billing Address Personal/Family Spouse ANTHEM * Guarantor: EVAN LLAMAS Account Type Relation to Patient Date of Phone Billing Address Personal/Family Spouse ANTHEM * Guarantor: EVAN LLAMAS Account Type Relation to Patient Date of Phone Billing Address Personal/Family Spouse ANTHEM * Guarantor: EVAN LLAMAS Account Type Relation to Patient Date of Phone Billing Address Personal/Family Spouse ANTHEM ANTHEM ANTHEM ANTHEM ANTHEM ANTHEM ANTHEM ANTHEM ANTHEM ANTHEM ANTHEM ANTHEM ANTHEM ANTHEM ANTHEM ANTHEM ANTHEM ANTHEM ANTHEM ANTHEM ANTHEM ANTHEM ANTHEM ANTHEM ANTHEM ANTHEM ANTHEM ANTHEM ANTHEM ANTHEM ANTHEM ANTHEM ANTHEM ANTHEM ANTHEM ANTHEM ANTHEM ANTHEM ANTHEM ANTHEM ANTHEM ANTHEM ANTHEM ANTHEM ANTHEM ANTHEM Advance Directives * Full Code (Latest Code [...] No External or Internal Pacemaker Care Teams Community Service Technician Relationship Specialty Start Date End Date Gutierrez Richardson MD [address] [place] [address] PCP - General 06/28/22 Gutierrez Richardson MD [address] [place] [address] 01/03/22
--- OUTSIDE RECORDS SUMMARY | 2024-11-15 15:10 | XMS_ITS ---
Author Organization [facility] Care Team Providers Care Slot Shift Supervisor Name Role Phone Fermín Vaughn Danielito Unavailable Unavailable Allergies and adverse reactions No Known Allergies Care Team Name Role Address Phone Organization Dates Fermín Esteves [address] [place], [address], [facility] (Office): : : [facility] 01/13/2022 - 02/21/2022 Mental Status Section Date Assessment Total Score Description 02/21/2022 BIMS 14 cognitively int act CAM 0 No delirium ind icated PHQ-9 10 moderate depres elmo 02/12/2022 BIMS 12 moderate cognit sanju impairment PHQ-9 12 moderate depres elmo Problems Problem # Description Date of onset Resolved Date Code CodeSystem Concern Status 1 APHASIA 02/16/[address] active 2 COGNITIVE COMMUNICATION DEFICIT 02/16/[address] active 3 COVID-19 02/10/[address] active 4 DYSPHAGIA FOLLOWING CEREBRAL INFARCTION 01/18/[address] active 5 OTHER PNEUMONIA, UNSPECIFIED ORGANISM 01/18/[address] active 6 OTHER SEQUELAE OF CEREBRAL INFARCTION 01/18/[address] active 7 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 01/13/[address] active 8 CHRONIC OBSTRUCTIVE PULMONARY DISEASE, UNSPECIFIED 01/13/[address] active 9 DYSARTHRIA AND ANARTHRIA 01/13/[address] active 10 HYPERLIPIDEMIA, UNSPECIFIED 01/13/[address] active 11 HYPERTENSIVE HEART DISEASE WITHOUT HEART FAILURE 01/13/[address] active 12 OTHER ABNORMALITIES OF GAIT AND MOBILITY 01/13/[address] active 13 WEAKNESS 01/13/[address] active Reason for Referral No Reasons for Referral Entered Social History Social History Observation Description Start Date End Date Code Code System Current Smoking Status Tobacco smoking consumption unknown 909814186 SNOMED CT Sex Assigned At Male 1960 86533-8 [facility] Gender Identity Vital Signs Code Code System Vitals Name Values and Units Timing Information 82158-8 [facility] Weight Woets=039.4 Units=Lbs 46746-1 [facility] Pain Level Value=0.0 02/21/2022 9279-1 [facility] Respiratory Rate Value=17.0 Units=/m in 02/21/2022 8462-4 [facility] Blood Pressure-Diastolic Value=59 Un its=mmHg 02/21/2022 8480-6 [facility] Blood Pressure-Systolic Jpcmv=347 Un its=mmHg 02/21/2022 8310-5 [facility] Body Temperature Value=97.0 Units= F 02/21/2022 8867-4 [facility] Heart rate Value=71.0 Units=/min 92314-5 [facility] O2 % BldC Oximetry Value=98.0 Units= % 02/21/2022 8302-2 [facility] Height Value=69.0 Units=Inches 01/18/2022
[2024-11-15 15:15] VITALS: BP 153/78; PULSE 76; RESP 17; O2SAT 96
[2024-11-15 15:24] VITALS: BP 153/78; PULSE 72; RESP 16; TEMP 36.8; O2SAT 95
[2024-11-15 15:25] LABS: Hematocrit 44.8 % (42.0-52.0); Hemoglobin 15.1 g/dL (14.0-18.0); Immature Granulocyte Percent A 0.1 % (0-0.5); Lymphocytes Absolute Auto 1.14 K/mm3 (0.9-3.2); Mean Corpuscular HGB Conc 33.7 g/dl (32-36); Mean Corpuscular Hemoglobin 32.7 pg (26-34); Mean Corpuscular Volume 97.0 fl (80-100); Nucleated Red Blood Cells Absolute Auto 0.000 K/mm3 (0.0-0.012); Nucleated Red Blood Cells Perc 0.0 % (0.0-0.2); Platelet Count Result 182 k/mm3 (150-375); Red Blood Count 4.62 M/mm3 (4.6-6.20); White Blood Count 7.3 K/mm3 (4.5-10.0)
[2024-11-15 15:38] LABS: INR 1.0; Partial Thromboplastin Time 28.2 Seconds (22.3-36.8); Prothrombin Time 12.7 Seconds (11.1-14.7)
[2024-11-15 15:46] LABS: Alanine Aminotransferase 28 U/L (6-50); Albumin Level 4.4 g/dL (3.5-5.1); Alkaline Phosphatase 86 U/L (38-126); Anion Gap 11 mmol/L (4-12); Aspartate Amino Transferase 35 U/L (17-59); Bilirubin,Total 0.5 mg/dL (0.2-1.3); Blood Urea Nitrogen 7 mg/dL (9-20); Calcium 9.3 mg/dL (8.4-10.2); Carbon Dioxide 26 mmol/L (22-30); Chloride 102 mmol/L (98-107); Estimated CRCL calculation 122 ml/min; Estimated Glomerular Filt Rate > 60; Glucose 140 mg/dL (65-110); Potassium 4.1 mmol/L (3.4-5.0); Sodium 139 mmol/L (137-145); Total Protein 7.6 g/dL (6.3-8.2)
[2024-11-15 15:52] LABS: Appearance Urine Clear (Clear)
[2024-11-15 15:53] LABS: Glucose Urine UA Negative (Negative); Nitrate Urine Negative (Negative); Specific Grav Ur 1.010 (1.001-1.035)
[2024-11-15 15:54] LABS: Add Urine Microscopic? YES; Leukocyte Esterase Ur Trace LEU/UL (Negative)
[2024-11-15] MEDS: MIDAZOLAM HCL (*CRX) 2 MG/2 ML VIAL IV PUSH (15:57)
[2024-11-15 15:58] LABS: Need Manual Microscopic Reviewed; Non Pathogenic Casts 0-2
[2024-11-15 16:00] VITALS: BP 144/100; PULSE 88; RESP 20; O2SAT 100
[2024-11-15] MEDS: LACTATED RINGERS 1,000 ML 999 ML IV CONT ×2 (16:02→16:03)
[2024-11-15 17:22] VITALS: BP 148/82; PULSE 72; RESP 20; O2SAT 99
[2024-11-15 18:26] VITALS: BP 136/69; PULSE 66; RESP 20; O2SAT 99
== END 2024-11-15 19:28 ==
PROVIDERS: Emergency Provider Emergency Medicine; PCP Family Medicine
DX: R45.1 Restlessness and agitation (principal); I69.954 Hemiplegia and hemiparesis following unspecified cerebrovascular disease affecting left non-dominant side; E11.9 Type 2 diabetes mellitus without complications; I10 Essential (primary) hypertension; K76.0 Fatty (change of) liver, not elsewhere classified; Z87.01 Personal history of pneumonia (recurrent)
CPT/HCPCS: 36415; 74176; 80053; 81001; 83605; 85025; 85610; 85730; 96361; 96374; 99284; J2250; J7120